=== PATIENT | female | born 1945 | race African-American/Black ===

== ENCOUNTER 2017-11-16 23:30 | Inpatient (IN) | payer MEDICARE, MEDICAID ==
[2017-11-17 03:12] VITALS: BMI 35.9
[2017-11-17] MEDS ORDERED: Ondansetron ODT 4 MG TAB SL PRN ×2 (03:23→07:34)
[2017-11-17] MEDS ORDERED: Acetaminophen 325 MG TAB PO PRN (03:23)
[2017-11-17] MEDS ORDERED: Ondansetron HCl/PF 4 MG/2 ML Vial IVP PRN (03:23)
[2017-11-17] MEDS ORDERED: Dextrose 5% in Water 1,000 ML IV PRN (07:34)
[2017-11-17] MEDS ORDERED: Artificial Tears 18 DROP/0.9 ML EA EYE PRN (07:34)
[2017-11-17] MEDS ORDERED: hydrALAZINE 20 MG/ML VIAL SLOW IVP PRN (07:34)
[2017-11-17] MEDS ORDERED: Eucerin (Mineral Oil/Petrolatum,White) 30 gm Jar TOP PRN (07:34)
[2017-11-17] MEDS ORDERED: Dextrose 50% Abboject 50 ML SYRINGE SLOW IVP PRN (07:34)
[2017-11-17] MEDS ORDERED: Diabetic Tussin 200 MG/10 ML UDCUP PO PRN (07:34)
[2017-11-17] MEDS ORDERED: Chloraseptic Spray 180 ml Bottle PO PRN (07:34)
[2017-11-17] MEDS ORDERED: Milk Of Magnesia 30 ML UDCUP PO PRN (07:34)
[2017-11-17] MEDS ORDERED: HumaLOG 300 UNITS/3 ML VIAL SC PRN ×2 (07:34)
[2017-11-17] MEDS ORDERED: Sodium Chloride 0.65% Nasal 44 ML BOT EA NARE PRN (07:34)
[2017-11-17] MEDS ORDERED: Sodium Chloride 0.9% 1,000 ML IV SCH (07:45)
[2017-11-17 07:56] LABS: Hemoglobin 11.5 g/dL (12.0-16.0); Mean Corpuscular HGB CONC 32.3 g/dL (32.0-36.0); Mean Corpuscular Hemoglobin 32.4 pg (27.0-31.0); Platelet Count 311 thou/uL (130-400); RBC Distribution Width 12.5 % (11.5-14.5); Red Blood Cell (RBC) Count 3.56 mill/uL (4.20-5.40); White Blood Cell (WBC) Count 10.7 thou/uL (4.8-10.8)
[2017-11-17] MEDS: Ondansetron HCl/PF 4 MG/2 ML Vial IVP PRN (08:03)
[2017-11-17 08:09] LABS: Lactic Acid 1.1 mmol/L (0.5-2.2)
[2017-11-17 08:19] LABS: ALT (SGPT) 9 U/L (8-55); AST (SGOT) 19 U/L (5-34); Albumin 3.7 g/dL (3.4-4.8); Alkaline Phosphatase 64 U/L (40-150); Anion Gap 15 mmol/L (10-20); BUN (Urea Nitrogen) 56 mg/dL (9.8-20.1); Bilirubin, Total 0.6 mg/dL (0.2-1.2); Calc. Creatinine Clearance 42 mL/min (70-130); Calcium 9.5 mg/dL (7.8-10.44); Carbon Dioxide 18 mmol/L (23-31); Chloride 105 mmol/L (98-107); Estimated GFR-MDRD 30; Globulin 4.4 g/dL (2.4-3.5); Glucose 146 mg/dL (83-110); Potassium 5.8 mmol/L (3.5-5.1); Protein, Total 8.1 g/dL (6.0-8.3); Sodium 132 mmol/L (136-145)
[2017-11-17 08:24] LABS: Band 56 % (5-11); Lymphocytes 10 % (21-51); MDiff Complete? YES; Metamyelocyte 5 % (0-0); Monocytes 2 % (0-10); Neutrophil 27 % (42-75); Reflex for Review?? YES; Vacuoles SLIGHT
[2017-11-17] MEDS: Amlodipine 5 MG TAB PO SCH (08:42)
[2017-11-17] MEDS: Carvedilol 6.25 MG TAB PO SCH ×2 (08:42→22:49)
[2017-11-17] MEDS: Famotidine/PF 20 mg/2ml Vial SLOW IVP SCH (08:42)
[2017-11-17] MEDS ORDERED: Enoxaparin Sodium 30 MG/0.3 ML SYRINGE SC SCH (09:00)
[2017-11-17] MEDS ORDERED: Benzocaine 20% Spray 60 ML CAN PO SCH (11:15)
[2017-11-17] MEDS ORDERED: Lidocaine 2% Jelly 5 ML TUBE TOP SCH (11:15)
--- NOTE | 2017-11-17 12:01 | HP ---
DATE OF ADMISSION: 11/17/2017 PRIMARY CARE PHYSICIAN: Dr. Pascual Mosquera. REASON FOR ADMISSION: Small-bowel obstruction. HISTORY OF PRESENT ILLNESS: A 72-year-old female who has ileostomy in the right lower quadrant, who presented to [facility] with abdominal pain. The patient did not have any solid output for almost 24 hours before going to emergency room. She was also having associated nausea and vomiting. Her abdominal pain was diffuse, about 4/10 in intensity. She also had bilious vomiting without any blood. She did not have any fever or chills. She denied any urinary tract infection symptoms, but she reported feeling weak. She did not have any chest pain, palpitation or shortness of breath. With these symptoms, she presented to [facility] where she had CT of the abdomen and pelvis with contrast, which showed stranding changes around the ileostomy in the right lower quadrant and fecalization of small bowel and suspected for small-bowel obstruction. The patient was sent to our emergency room for evaluation and subsequently she was admitted to surgical floor. At [facility], the patient was given IV fluid. Over there, the patient was hemodynamically stable other than having low-grade fever. REVIEW OF SYSTEMS: The following complete review of systems was negative, unless otherwise mentioned in the HPI or below: Constitutional: Weight loss or gain, ability to conduct usual activities. Skin: Rash, itching. Eyes: Double vision, pain. ENT/Mouth: Nose bleeding, neck stiffness, pain, tenderness. Cardiovascular: Palpitations, dyspnea on exertion, orthopnea. Respiratory: Shortness of breath, wheezing, cough, hemoptysis, fever or night sweats. Gastrointestinal: Poor appetite, abdominal pain, heartburn, nausea, vomiting, constipation, or diarrhea. Genitourinary: Urgency, frequency, dysuria, nocturia. Musculoskeletal: Pain, swelling. Neurologic/Psychiatric: Anxiety, depression. Allergy/Immunologic: Skin rash, bleeding tendency. Please see my HPI for pertinent positive and negative. All other review of systems reviewed and negative except as mentioned in the HPI. EMERGENCY ROOM COURSE: The patient was given IV fluid at [facility]. PAST MEDICAL HISTORY: Chronic diastolic heart failure, diabetes type 2, hypertension, dyslipidemia, morbid obesity, asthma, history of ileostomy in the right lower quadrant. PAST SURGICAL HISTORY: Ileostomy in the right lower quadrant. PAST PSYCHIATRIC HISTORY: Reviewed and negative. SOCIAL HISTORY: The patient lives with family. No history of current tobacco, alcohol or illicit drug abuse. She is a former smoker. She quit smoking more than 10 years ago. She lives with 2 sisters, niece and nephew. FAMILY HISTORY: No strong family history of premature CAD, CVA or cancer. ALLERGIES: No known drug allergy. CURRENT HOME MEDICATIONS: Valsartan 160 mg p.o. daily, pravastatin 80 mg p.o. at bedtime, Coreg 12.5 mg twice daily, Lasix 40 mg p.o. daily, Ventolin inhaled nebulization q.4 hourly p.r.n., amlodipine 5 mg daily, DuoNeb q.6 hourly p.r.n. , Symbicort 2 puff inhalation b.i.d. PHYSICAL EXAMINATION: VITAL SIGNS: On arrival to our emergency room, blood pressure 127/62, pulse 101 , respiratory rate 22, temperature 99.3, saturation 99% on room air, weight 104.3 kilograms. GENERAL: The patient is currently alert, awake, appears weak. No obvious acute distress, chronically ill. HEAD: Normocephalic, atraumatic. EYES: Pupils round and reactive to light. Extraocular muscle intact. ENT: Oropharynx within normal limits. Dry mucous membrane. No oral lesion, no pharyngeal erythema, no exudate. NECK: Supple. No JVD, no thyromegaly, no carotid bruit. LUNGS: Clear to auscultation without any rhonchi or rales. CARDIAC: S1, S2 regular, tachycardia. No murmur, no gallop, no rub. ABDOMEN: The patient has diffuse tenderness, predominantly tenderness more around osteotomy site. Currently, osteotomy is filled with liquidy stool. Bowel sounds hypoactive. No peritoneal signs. No organomegaly, no mass. Obesity noted. BACK: Unremarkable. No CVA tenderness. EXTREMITIES: Upper extremities, passive movement of all joints are normal. Lower extremities, no edema. Good distal pulsation. MUSCULOSKELETAL: The patient has Horta catheter in place. NEUROLOGIC: Nonfocal examination. The patient is moving all four limbs. Speech normal. SKIN: No skin rash. PSYCHIATRIC: Normal affect. SIGNIFICANT LABORATORY DATA: CBC, WBC 13.7, hemoglobin 12.1, platelets 311,000 with bandemia. BMP, sodium 135, potassium 5.8, BUN 56, creatinine 2.0, glucose 146, calcium 9.5. Lactic acid 1.1. LFT, AST 19, ALT 9, alkaline phosphatase 64 , albumin 3.7, lipase 19. Urinalysis unremarkable. Gastric occult blood negative. CT of the abdomen and pelvis showing stranding changes and fecalization of small bowel in the right lower quadrant. ASSESSMENT AND PLAN: 1. Suspected small-bowel obstruction based on CT finding. At this point, the patient's osteotomy is with liquidy stool. Does not obviously suspect a major obstruction. We will consult General Surgery for their opinion. At this point , we will keep her n.p.o. except medication. 2. Osteotomy site infection. The patient does have stranding around the osteotomy site and fecalization of small bowel. Small bowel infection is suspected. Enteritis possible, that may be causing partial small-bowel obstruction. We will send stool for Clostridium difficile, ova and parasite, Campylobacter antigen and start empiric antibiotic therapy with Levaquin and Flagyl. Probiotics will be prescribed. 3. Sepsis with systemic inflammatory response syndrome criteria. The patient has fever, tachycardia, leukocytosis and bandemia. Most likely source is abdominal infection. We will send stool for infection workup. The patient is already started on empiric antibiotic therapy. Probiotic is also prescribed. 4. Microcytic anemia. The patient will be given folic acid and vitamin B12 therapy. 5. Acute on chronic kidney failure, likely due to high output from ileostomy. The patient will be given IV fluid and we will monitor renal function. 6. Hyponatremia and hyperkalemia, likely due to metabolic acidosis and acute kidney failure. We will monitor electrolytes and replace accordingly. 7. Obesity with BMI of 35. Dietary education given. 8. Hypertension. Continue amlodipine 5 mg p.o. daily, Coreg 12.5 mg twice daily. 9. Dyslipidemia. Continue pravastatin 80 mg p.o. at bedtime. 10. Diabetes type 2. Continue insulin as per sliding scale per protocol. 11. Chronic obstructive pulmonary disease/asthma. Continue DuoNeb q.6 hourly. Incentive spirometry advised. 12. Deep venous thrombosis prophylaxis, heparin 5000 units subcu twice daily. 13. Gastrointestinal prophylaxis, Pepcid 20 mg IV daily. 14. Code status: The patient is full code. The patient does not have any surrogate decision maker. Disposition plan based on clinical course. We are expecting the patient's stay in hospital more than 2 midnights. Plan of care discussed with the patient in detail. MTDD
[2017-11-17] MEDS ORDERED: metroNIDAZOLE 500 MG in Premix Bag 1 BAG IVPB SCH (14:00)
--- NOTE | 2017-11-17 15:31 | RAD ---
ABDOMEN ONE VIEW: History: Abdominal pain. Bowel obstruction. Comparison: 11-16-17 FINDINGS: Gaseous distention of the small bowel in the upper abdomen is similar in appearance to the previous e xam. There is paucity of gas over the colon and rectum. Contrast material remains within the urinary collecting system. Hemostatis clips are apparent on each side of the abdomen. Calcified uterine fibro ids and phleboliths are again demonstrated. Osseous structures are demineralized. Prominent degenerat judith changes lumbar spine and hips. IMPRESSION: Persistent gaseous distension of the small bowel. Stable in radiographic appearance. POS: [facility]
[2017-11-17] MEDS: Heparin 5,000 UNITS/ML VIAL SC SCH ×2 (17:58→22:48)
[2017-11-17] MEDS: Sodium Chloride 0.9% 1,000 ML IV SCH ×2 (17:59→22:48)
[2017-11-17] MEDS: metroNIDAZOLE 500 MG in Premix Bag 1 BAG IVPB SCH (18:04)
--- NOTE | 2017-11-17 18:27 | CON ---
DATE OF CONSULTATION: 11/17/2017 CHIEF COMPLAINT: Nausea and vomiting. HISTORY OF PRESENT ILLNESS: The patient is a 72-year-old morbidly obese black female, well known to myself from prior surgery and followup evaluations. I performed a colon resection on three separate occasions in 1997, 1999, 2000. Each of these was performed in treatment of colon bleeding and this r esulted in a subtotal colectomy with an end ileostomy in the right lower quadrant. She was morbidly obese at the time of her surgeries and she remains morbidly obese at this time. Her last surgery was now over 17 years ago. She has been admitted to hospital several times in 2013, 2015, 2017 and now with evidence of bowel obstruction. The obstruction appeared to be related to parastomal hernia. She presented to the emergency room last night apparently complained of nausea and vomiting. She has become progressively poor historian. She is unable to tell me what her ostomy function has been rec ently. She does note that started putting out a significant volume of fluid within the last hour or so. She has not vomited for 3 hours at this time. Personal examination of her CT scan revealed several loops of small bowel present within her parastom al hernia in the right abdominal wall. She has fecalization of small bowel contents and this appears to be within the segment of small bowel immediately adjacent to the stoma. This may indicate stomal stenosis as the etiology of her problem. PAST MEDICAL HISTORY: 1. Oxygen-dependent COPD. 2. Diabetes mellitus. 3. Severe morbid obesity. 4. Mild chronic kidney disease. 5. Hypertension. PAST SURGICAL HISTORY: Colon resection x3 with end ileostomy. MEDICATIONS: Include valsartan, pravastatin, Coreg, Lasix, and Ventolin, amlodipine, DuoNebs and Sym bicort. ALLERGIES: No known drug allergies. PRIMARY CARE PHYSICIAN: Eveline Garner DO PERSONAL/SOCIAL HISTORY: She is single. She lives with two sisters in [place]. She does not s moke or drink alcohol. REVIEW OF SYSTEMS: Otherwise, unremarkable. She is minimally ambulatory. FAMILY HISTORY: Noncontributory. PHYSICAL EXAMINATION: VITAL SIGNS: Her temperature is 98.1, pulse is between 73 and 101, blood pressure 153/78. GENERAL: She is morbidly obese black female, resting in bed. She was asleep when I arrived, but tiesha l quickly and interacts appropriately. She is alert and oriented x3. She does appear to be a little more confused than in times in the past I have seen her and answers more slowly. HEENT: Unremarkable. NECK: Supple. LUNGS: Clear to auscultation. CARDIAC: Regular rate and rhythm without murmur. ABDOMEN: Morbidly obese, but soft and nontender. Bowel sounds are present but hypoactive. Ostomy i n the right lower abdomen, has an ostomy appliance over this. This was taped down in such a fashion that I cannot lift off the ostomy bag to examine the ileostomy. EXTREMITIES: Unremarkable. LABORATORY DATA: CBC reveals white blood cell count of 10.7 with hemoglobin of 11.5. She has a band emia; however, of 56%. Chemistry profile reveals low sodium of 132, potassium is elevated at 5.8. C reatinine is elevated at 2.0 (up from her admission yesterday). Liver function tests are unremarkabl e. ASSESSMENT: Patient with what appears to be a small-bowel obstruction potentially related to an ileo stomy stenosis. This fecalization of the small bowel immediately adjacent is concerning. I have ask ed the nursing staff to change out her ostomy bags, so I examine the ileostomy for stenosis. If she does in fact have stenosis, then she would probably benefit from surgery to address this in light of her recurrent admissions. She certainly does not have a current worrisome exam. Given the recent ms eostomy output, I recommend observation rather than nasogastric tube placement. Other than ileostomy revision, I cannot imagine she would require another surgery at this time and if her stoma is workin g appropriately, then we may hold off on that as well. For now a nasogastric tube is not necessary. She is not vomiting and ostomy is working. If this does become necessary, then as she is request, I will try to place it myself.
[2017-11-17] MEDS: Mometasone/Formoterol 120 PUFF INHALER INH SCH (18:45)
[2017-11-17] MEDS: Acetaminophen 325 MG TAB PO PRN (22:49)
[2017-11-17] MEDS: Atorvastatin Calcium 20 MG TAB PO SCH (22:49)
[2017-11-18] MEDS: metroNIDAZOLE 500 MG in Premix Bag 1 BAG IVPB SCH ×2 (00:36→10:00)
[2017-11-18] MEDS: Mometasone/Formoterol 120 PUFF INHALER INH SCH ×2 (06:29→19:46)
[2017-11-18] MEDS: Sodium Chloride 0.9% 1,000 ML IV SCH ×2 (06:44→10:00)
[2017-11-18 09:03] LABS: ALT (SGPT) Less than 7 U/L (8-55); AST (SGOT) 9 U/L (5-34); Albumin 3.5 g/dL (3.4-4.8); Alkaline Phosphatase 62 U/L (40-150); Anion Gap 14 mmol/L (10-20); BUN (Urea Nitrogen) 62 mg/dL (9.8-20.1); Bilirubin, Total 0.4 mg/dL (0.2-1.2); Calc. Creatinine Clearance 44 mL/min (70-130); Calcium 8.6 mg/dL (7.8-10.44); Carbon Dioxide 19 mmol/L (23-31); Chloride 111 mmol/L (98-107); Estimated GFR-MDRD 32; Globulin 4.1 g/dL (2.4-3.5); Glucose 121 mg/dL (83-110); Magnesium 2.2 mg/dL (1.6-2.6); Phosphorus 3.9 mg/dL (2.3-4.7); Potassium 4.8 mmol/L (3.5-5.1); Protein, Total 7.6 g/dL (6.0-8.3); Sodium 139 mmol/L (136-145)
[2017-11-18] MEDS ORDERED: Enoxaparin Sodium 30 MG/0.3 ML SYRINGE SC SCH (09:07)
[2017-11-18 09:23] LABS: Band 55 % (5-11); Hemoglobin 11.6 g/dL (12.0-16.0); Lymphocytes 14 % (21-51); MDiff Complete? YES; Macrocytosis SLIGHT = 6-15 cells (100X) (0-5/hpf); Mean Corpuscular HGB CONC 31.1 g/dL (32.0-36.0); Mean Corpuscular Hemoglobin 31.3 pg (27.0-31.0); Mean Platelet Volume 6.8 fL (7.4-10.4); Metamyelocyte 6 % (0-0); Monocytes 6 % (0-10); Neutrophil 18 % (42-75); PLT Morphology Comment Appears Adequate; Platelet Count 276 thou/uL (130-400); Polychromasia SLIGHT = 2-3 cells (100X) (0-2/hpf); RBC Distribution Width 12.4 % (11.5-14.5); Reactive Lymphocytes 1 % (0-10); Red Blood Cell (RBC) Count 3.71 mill/uL (4.20-5.40); Toxic Granulation SLIGHT; White Blood Cell (WBC) Count 8.9 thou/uL (4.8-10.8)
[2017-11-18] MEDS: Cyanocobalamin (Vitamin B-12) 1,000 MCG TAB PO SCH (09:56)
[2017-11-18] MEDS: Carvedilol 6.25 MG TAB PO SCH ×2 (09:56→22:11)
[2017-11-18] MEDS: Saccharomyces boulardii 250 MG CAP PO SCH (09:58)
[2017-11-18] MEDS: Amlodipine 5 MG TAB PO SCH (09:58)
[2017-11-18] MEDS: Folic Acid 1 MG TAB PO SCH (09:58)
[2017-11-18] MEDS: Heparin 5,000 UNITS/ML VIAL SC SCH ×2 (09:59→22:11)
[2017-11-18] MEDS: Famotidine/PF 20 mg/2ml Vial SLOW IVP SCH (09:59)
--- NOTE | 2017-11-18 10:12 | PDOC.PN ---
- Subjective Encounter Start Date: 11/18/17 Encounter Start Time: 08:20 -: old records requested/rev pt is still not feeling good, no fever, has vague abdominal discomfort, no vomiting, - Objective Resuscitation Status: Resuscitation Status FULL:Full Resuscitation MAR Reviewed: Yes Vital Signs & Weight: Vital Signs (12 hours) Temp Pulse Resp BP BP Pulse Ox 11/18/17 07:52 97.7 F 85 18 156/76 H 99 11/18/17 06:29 92 18 96 11/18/17 06:26 92 18 96 11/18/17 05:19 98.3 F 84 14 126/67 100 11/18/17 01:47 84 18 96 11/17/17 22:50 97 11/17/17 22:49 164/83 H Weight Weight 229 lb I&O: 11/17/17 11/18/17 11/19/17 06:59 06:59 06:59 Intake Total 10 120 Output Total 250 600 Balance -240 -480 Result Diagrams: 11/18/17 08:28 11/18/17 08:28 Additional Labs: Accuchecks 11/18/17 11/17/17 11/17/17 05:18 23:04 15:45 POC Glucose 130 H 132 H 139 H 11/17/17 11:14 POC Glucose 148 H Phys Exam - Physical Examination Constitutional: NAD HEENT: PERRLA, moist MMs, sclera anicteric Neck: no JVD, supple Respiratory: no wheezing, no rales, no rhonchi Cardiovascular: RRR, no significant murmur, no rub Gastrointestinal: soft, positive bowel sounds RLQ ileostomy+, vague discomfort, hypoactive BS maxwell+ Musculoskeletal: no edema, pulses present Neurological: non-focal, normal sensation, moves all 4 limbs Lymphatic: no nodes Psychiatric: normal affect Skin: no rash, normal turgor Dx/Plan (1) Abnormal blood electrolyte level Code(s): E87.8 - OTH DISORDERS OF ELECTROLYTE AND FLUID BALANCE, NEC Status: Acute (2) Acute renal failure superimposed on stage 3 chronic kidney disease Code(s): N17.9 - ACUTE KIDNEY FAILURE, UNSPECIFIED; N18.3 - CHRONIC KIDNEY DISEASE, STAGE 3 (MODERATE) Status: Acute (3) Dehydration Code(s): E86.0 - DEHYDRATION Status: Acute (4) Sepsis Code(s): A41.9 - SEPSIS, UNSPECIFIED ORGANISM Status: Acute (5) COPD (chronic obstructive pulmonary disease) Status: Chronic (6) DM type 2 (diabetes mellitus, type 2) Status: Chronic (7) H/O ileostomy Code(s): Z98.89 - OTHER SPECIFIED POSTPROCEDURAL STATES * DO NOT USE * Status : Chronic (8) HTN (hypertension) Code(s): I10 - ESSENTIAL (PRIMARY) HYPERTENSION Status: Chronic (9) Macrocytic anemia Code(s): D53.9 - NUTRITIONAL ANEMIA, UNSPECIFIED Status: Chronic (10) Obesity (BMI 30-39.9) Code(s): E66.9 - OBESITY, UNSPECIFIED Status: Chronic (11) Parastomal hernia Code(s): K43.5 - PARASTOMAL HERNIA WITHOUT OBSTRUCTION OR GANGRENE Status: Chronic (12) SBO (small bowel obstruction) Code(s): K56.609 - UNSP INTESTNL OBST, UNSP TO PARTIAL VERSUS COMPLETE OBST Status: Suspected - Plan cont current plan of care, continue antibiotics * still has bandemia, will dc levaquin and continue IV flagyl for c-diff antigen positive but toxin negative * surgeon following and suspecting ileostomy stenosis * medication reviewed as below * symptomatic treatment * continue IVF * renal function improving and electrolytes improved. Review of Systems - Review of Systems Constitutional: weakness. negative: fever, chills, sweats, malaise, other ENT: negative: Ear Pain, Ear Discharge, Nose Pain, Nose Discharge, Nose Congestion, Mouth Pain, Mouth Swelling, Throat Pain, Throat Swelling, Other Respiratory: negative: Cough, Dry, Shortness of Breath, Hemoptysis, SOB with Excertion, Pleuritic Pain, Sputum, Wheezing Cardiovascular: negative: chest pain, palpitations, orthopnea, paroxysmal nocturnal dyspnea, edema, light headedness, other Gastrointestinal: Nausea, Abdominal Pain. negative: Vomiting, Diarrhea, Constipation, Melena, Hematochezia, Other Genitourinary: negative: Dysuria, Frequency, Incontinence, Hematuria, Retention , Other Musculoskeletal: negative: Neck Pain, Shoulder Pain, Arm Pain, Back Pain, Hand Pain, Leg Pain, Foot Pain, Other - Medications/Allergies Allergies/Adverse Reactions: Allergies Allergy/AdvReac Type Severity Reaction Status Date / Time No Known Allergies Allergy Verified 03/18/15 17:23 Medications: Current Medications Acetaminophen (Tylenol) 650 mg PO Q4H PRN PRN Reason: Headache/Fever or Pain Last Admin: 11/17/17 22:49 Dose: 650 mg Albuterol/Ipratropium (Duoneb) 3 ml NEB [id number] [facility] Last Admin: 11/18/17 06:26 Dose: 3 ml Amlodipine Besylate (Norvasc) 5 mg PO DAILY [facility] Last Admin: 11/17/17 08:42 Dose: Not Given Artificial Tears (Tears Naturale) 0 drop EA EYE PRN PRN PRN Reason: Dry Eyes Atorvastatin Calcium (Lipitor) 20 mg PO HS [facility] Last Admin: 11/17/17 22:49 Dose: 20 mg Carvedilol (Coreg) 12.5 mg PO BID [facility] Last Admin: 11/17/17 22:49 Dose: 12.5 mg Cyanocobalamin (Vitamin B-12) 1,000 mcg PO DAILY [facility] Dextrose/Water (Dextrose 50%) 25 gm SLOW IVP PRN PRN PRN Reason: Hypoglycemia Famotidine (Pepcid) 20 mg SLOW IVP DAILY [facility] Last Admin: 11/17/17 08:42 Dose: 20 mg Folic Acid (Folvite) 1 mg PO DAILY [facility] Glucagon (Glucagon) 1 mg IM PRN PRN PRN Reason: Hypoglycemia Guaifenesin (Robitussin Sf) 200 mg PO Q4H PRN PRN Reason: Cough Heparin Sodium (Porcine) (Heparin) 5,000 units SC BID [facility] Last Admin: 11/17/17 22:48 Dose: 5,000 units Hydralazine HCl (Apresoline) 10 mg SLOW IVP Q4H PRN PRN Reason: Systolic BP > 180 Dextrose/Water (D5w) 1,000 mls @ 0 mls/hr IV .Q0M PRN PRN Reason: Hypoglycemia Levofloxacin 500 mg/ Device 100 mls @ 100 mls/hr IVPB 1200 [facility] Last Admin: 11/17/17 12:44 Dose: 100 mls Sodium Chloride (Normal Saline 0.9%) 1,000 mls @ 150 mls/hr IV .Q6H40M [facility] Last Admin: 11/18/17 06:44 Dose: 1,000 mls Metronidazole 500 mg/ Device 100 mls @ 100 mls/hr IVPB 0200,1000,1800 [facility] Last Admin: 11/18/17 00:36 Dose: 100 mls Insulin Human Lispro (Humalog) 0 units SC .MODERATE SLIDING SC PRN PRN Reason: Moderate Correctional Scale Insulin Human Lispro (Humalog) 0 units SC .BEDTIME SLIDING SC PRN PRN Reason: Bedtime Correctional Scale Magnesium Hydroxide (Milk Of Magnesium) 30 ml PO DAILYPRN PRN PRN Reason: Constipation Mineral Oil/White Petrolatum (Eucerin Cream) 0 gm TOP BIDPRN PRN PRN Reason: Dry Skin Mometasone Furoate/Formoterol Fumar (Dulera 200 Mcg/5 Mcg Inhaler) 2 puff INH BID-RT [facility] Last Admin: 11/18/17 06:29 Dose: 2 puff Morphine Sulfate (Morphine) 2 mg SLOW IVP Q2H PRN PRN Reason: Pain Ondansetron HCl (Zofran Odt) 4 mg SL Q6H PRN PRN Reason: Nausea/Vomiting Ondansetron HCl (Zofran) 4 mg IVP Q6H PRN PRN Reason: Nausea/Vomiting Last Admin: 11/17/17 08:03 Dose: 4 mg Phenol (Chloraseptic Clinton 180 Ml Bot) 0 ml PO PRN PRN PRN Reason: Sore Throat Saccharomyces Boulardii (Florastor) 250 mg PO DAILY [facility] Sodium Chloride (Vincent Nasal Clinton 0.65%) 0 ml EA NARE QIDPRN PRN PRN Reason: Nasal Congestion Sodium Chloride (Flush - Normal Saline) 10 ml IVF Q12HR [facility] Last Admin: 11/17/17 22:50 Dose: 10 ml Sodium Chloride (Flush - Normal Saline) 10 ml IVF PRN PRN PRN Reason: Saline Flush
--- NOTE | 2017-11-18 14:04 | PRG ---
DATE OF SERVICE: 11/18/2017 SUBJECTIVE: Ms. Du was admitted yesterday. She had a suspected small-bowel obstruction involv ing the entirety of her small bowel (she has an ileostomy). She appeared to potentially have ileosto my stenosis. Her ostomy began working yesterday. I never placed a nasogastric tube. We started jory ar liquids this morning when she still had not had any further nausea or vomiting. Her ostomy has co ntinued to put out material uneventfully. She has no complaints currently. PHYSICAL EXAMINATION: VITAL SIGNS: Today, she is afebrile, pulse is in the 80s, blood pressure 150/70. LUNGS: Clear. ABDOMEN: Obese, but soft and nontender with normal bowel sounds. She has got good ostomy output. I digitally explored her ileostomy and there is no significant stenosis at the level of the skin. I a m able to pass my index finger easily down into the small bowel. She does have a significant parasto mal hernia, but this does not appear to be problematic. LABORATORY STUDIES: Her hemoglobin is stable at 11.6. For reasons that are unclear, she still appar ently has a bandemia of 55% even though she has got a normal white blood cell count. Chemistry profi willie reveals that her creatinine is improved and has dropped down from 2-1.89. She appears to be stable. I will advance her up to full liquids later today and plan on discharging her tomorrow. Since she still appears to be a little hypovolemic, I would recommend continuing her I V fluids for now.
[2017-11-18] MEDS: Lactated Ringer's 1,000 ML IV SCH (14:48)
[2017-11-18] MEDS: Acetaminophen 325 MG TAB PO PRN (22:11)
[2017-11-18] MEDS: Atorvastatin Calcium 20 MG TAB PO SCH (22:11)
[2017-11-19] MEDS: Lactated Ringer's 1,000 ML IV SCH ×4 (00:05→22:15)
[2017-11-19] MEDS: Ondansetron HCl/PF 4 MG/2 ML Vial IVP PRN (03:16)
[2017-11-19] MEDS: Mometasone/Formoterol 120 PUFF INHALER INH SCH ×2 (06:25→19:17)
[2017-11-19 06:59] LABS: White Blood Cell (WBC) Count 10.7 thou/uL (4.8-10.8)
[2017-11-19 07:49] LABS: Albumin 3.3 g/dL (3.4-4.8); Anion Gap 11 mmol/L (10-20); BUN (Urea Nitrogen) 44 mg/dL (9.8-20.1); BUN/Creatinine Ratio 30.14; Calc. Creatinine Clearance 57 mL/min (70-130); Calcium 8.8 mg/dL (7.8-10.44); Carbon Dioxide 19 mmol/L (23-31); Chloride 112 mmol/L (98-107); Estimated GFR-MDRD 43; Glucose 109 mg/dL (83-110); Phosphorus 2.5 mg/dL (2.3-4.7); Potassium 4.4 mmol/L (3.5-5.1); Sodium 138 mmol/L (136-145)
--- NOTE | 2017-11-19 08:08 | RAD ---
ABDOMEN 1 VIEW: HISTORY: Abdominal pain. Vomiting. COMPARISON: 11/17/17. FINDINGS: Gaseous distention of small bowel has become more pronounced than on the previous study. Postoperati ve changes and phleboliths are again demonstrated. Osseous structures are demineralized. IMPRESSION: 1. Progressing gaseous distention of the small bowel suggests worsening distal bowel obstruction. POS: [facility]
[2017-11-19 08:37] LABS: Hemoglobin 10.5 g/dL (12.0-16.0); Mean Corpuscular HGB CONC 32.6 g/dL (32.0-36.0); Mean Corpuscular Hemoglobin 32.9 pg (27.0-31.0); Mean Platelet Volume 6.8 fL (7.4-10.4); Platelet Count 328 thou/uL (130-400); RBC Distribution Width 12.3 % (11.5-14.5); Red Blood Cell (RBC) Count 3.18 mill/uL (4.20-5.40)
[2017-11-19 08:42] LABS: Band 37 % (5-11); Eosinophils 1 % (0-10); Lymphocytes 13 % (21-51); MDiff Complete? YES; Monocytes 8 % (0-10); Neutrophil 41 % (42-75); Nucleated RBC 1 % (0); PLT Morphology Comment Appears Adequate; Polychromasia SLIGHT = 2-3 cells (100X) (0-2/hpf)
--- NOTE | 2017-11-19 09:26 | PDOC.PN ---
- Subjective Encounter Start Date: 11/19/17 Encounter Start Time: 08:30 pt has nausea and episode of vomiting, has abdominal discomfort, has bandemia, very weak - Objective Resuscitation Status: Resuscitation Status FULL:Full Resuscitation MAR Reviewed: Yes Vital Signs & Weight: Vital Signs (12 hours) Temp Pulse Resp BP BP Pulse Ox 11/19/17 07:30 98.3 F 91 18 161/67 H 95 11/19/17 06:25 85 20 99 11/19/17 06:20 85 20 99 11/19/17 04:04 98.1 F 75 20 164/91 H 97 11/19/17 00:27 97.9 F 75 16 148/77 H 99 11/18/17 23:49 82 16 100 11/18/17 22:11 156/76 H Weight Weight 229 lb I&O: 11/18/17 11/19/17 11/20/17 06:59 06:59 06:59 Intake Total 120 3060 Output Total 600 700 Balance -480 2360 Result Diagrams: 11/19/17 06:49 11/19/17 06:49 Additional Labs: Accuchecks 11/19/17 11/18/17 11/18/17 05:49 20:53 15:56 POC Glucose 105 98 117 H 11/18/17 11:25 POC Glucose 118 H Phys Exam - Physical Examination Constitutional: NAD HEENT: PERRLA, moist MMs, sclera anicteric Neck: no JVD, supple Respiratory: no wheezing, no rales, no rhonchi Cardiovascular: RRR, no significant murmur, no rub Gastrointestinal: soft, positive bowel sounds upper abdominal discomfort, ileostomy with liquid stool Musculoskeletal: no edema, pulses present Neurological: moves all 4 limbs Lymphatic: no nodes Psychiatric: normal affect Skin: no rash, normal turgor Dx/Plan (1) Abnormal blood electrolyte level Code(s): E87.8 - OTH DISORDERS OF ELECTROLYTE AND FLUID BALANCE, NEC Status: Acute (2) Acute renal failure superimposed on stage 3 chronic kidney disease Code(s): N17.9 - ACUTE KIDNEY FAILURE, UNSPECIFIED; N18.3 - CHRONIC KIDNEY DISEASE, STAGE 3 (MODERATE) Status: Acute (3) Dehydration Code(s): E86.0 - DEHYDRATION Status: Acute (4) Sepsis Code(s): A41.9 - SEPSIS, UNSPECIFIED ORGANISM Status: Acute (5) COPD (chronic obstructive pulmonary disease) Status: Chronic (6) DM type 2 (diabetes mellitus, type 2) Status: Chronic (7) H/O ileostomy Code(s): Z98.89 - OTHER SPECIFIED POSTPROCEDURAL STATES * DO NOT USE * Status : Chronic (8) HTN (hypertension) Code(s): I10 - ESSENTIAL (PRIMARY) HYPERTENSION Status: Chronic (9) Macrocytic anemia Code(s): D53.9 - NUTRITIONAL ANEMIA, UNSPECIFIED Status: Chronic (10) Obesity (BMI 30-39.9) Code(s): E66.9 - OBESITY, UNSPECIFIED Status: Chronic (11) Parastomal hernia Code(s): K43.5 - PARASTOMAL HERNIA WITHOUT OBSTRUCTION OR GANGRENE Status: Chronic (12) SBO (small bowel obstruction) Code(s): K56.609 - UNSP INTESTNL OBST, UNSP TO PARTIAL VERSUS COMPLETE OBST Status: Suspected (13) Bandemia Code(s): D72.825 - BANDEMIA Status: Acute - Plan cont current plan of care * repeat c-diff testing * add flagyl for bandemia * consult ID for bandemia * will keep in hospital until renal function improve and bandemia improve * she is high risk for readmission * medication reviewed as below * symptomatic treatment. Review of Systems - Review of Systems Constitutional: weakness. negative: fever, chills, sweats, malaise, other Eyes: negative: Pain, Vision Change, Conjunctivae Inflammation, Eyelid Inflammation, Redness, Other ENT: negative: Ear Pain, Ear Discharge, Nose Pain, Nose Discharge, Nose Congestion, Mouth Pain, Mouth Swelling, Throat Pain, Throat Swelling, Other Respiratory: negative: Cough, Dry, Shortness of Breath, Hemoptysis, SOB with Excertion, Pleuritic Pain, Sputum, Wheezing Cardiovascular: negative: chest pain, palpitations, orthopnea, paroxysmal nocturnal dyspnea, edema, light headedness, other Gastrointestinal: Abdominal Pain. negative: Nausea, Vomiting, Diarrhea, Constipation, Melena, Hematochezia, Other Genitourinary: negative: Dysuria, Frequency, Incontinence, Hematuria, Retention , Other Musculoskeletal: negative: Neck Pain, Shoulder Pain, Arm Pain, Back Pain, Hand Pain, Leg Pain, Foot Pain, Other - Medications/Allergies Allergies/Adverse Reactions: Allergies Allergy/AdvReac Type Severity Reaction Status Date / Time No Known Allergies Allergy Verified 03/18/15 17:23 Medications: Current Medications Acetaminophen (Tylenol) 650 mg PO Q4H PRN PRN Reason: Headache/Fever or Pain Last Admin: 11/18/17 22:11 Dose: 650 mg Albuterol/Ipratropium (Duoneb) 3 ml NEB [id number] [facility] Last Admin: 11/19/17 06:20 Dose: 3 ml Amlodipine Besylate (Norvasc) 5 mg PO DAILY [facility] Last Admin: 11/18/17 09:58 Dose: 5 mg Artificial Tears (Tears Naturale) 0 drop EA EYE PRN PRN PRN Reason: Dry Eyes Atorvastatin Calcium (Lipitor) 20 mg PO HS [facility] Last Admin: 11/18/17 22:11 Dose: 20 mg Carvedilol (Coreg) 12.5 mg PO BID [facility] Last Admin: 11/18/17 22:11 Dose: 12.5 mg Cyanocobalamin (Vitamin B-12) 1,000 mcg PO DAILY [facility] Last Admin: 11/18/17 09:56 Dose: 1,000 mcg Dextrose/Water (Dextrose 50%) 25 gm SLOW IVP PRN PRN PRN Reason: Hypoglycemia Famotidine (Pepcid) 20 mg SLOW IVP DAILY [facility] Last Admin: 11/18/17 09:59 Dose: 20 mg Folic Acid (Folvite) 1 mg PO DAILY [facility] Last Admin: 11/18/17 09:58 Dose: 1 mg Glucagon (Glucagon) 1 mg IM PRN PRN PRN Reason: Hypoglycemia Guaifenesin (Robitussin Sf) 200 mg PO Q4H PRN PRN Reason: Cough Heparin Sodium (Porcine) (Heparin) 5,000 units SC BID [facility] Last Admin: 11/18/17 22:11 Dose: 5,000 units Hydralazine HCl (Apresoline) 10 mg SLOW IVP Q4H PRN PRN Reason: Systolic BP > 180 Dextrose/Water (D5w) 1,000 mls @ 0 mls/hr IV .Q0M PRN PRN Reason: Hypoglycemia Lactated Ringer's (Lactated Ringer's) 1,000 mls @ 125 mls/hr IV .Q8H [facility] Last Admin: 11/19/17 00:05 Dose: 1,000 mls Insulin Human Lispro (Humalog) 0 units SC .MODERATE SLIDING SC PRN PRN Reason: Moderate Correctional Scale Insulin Human Lispro (Humalog) 0 units SC .BEDTIME SLIDING SC PRN PRN Reason: Bedtime Correctional Scale Magnesium Hydroxide (Milk Of Magnesium) 30 ml PO DAILYPRN PRN PRN Reason: Constipation Mineral Oil/White Petrolatum (Eucerin Cream) 0 gm TOP BIDPRN PRN PRN Reason: Dry Skin Mometasone Furoate/Formoterol Fumar (Dulera 200 Mcg/5 Mcg Inhaler) 2 puff INH BID-RT [facility] Last Admin: 11/19/17 06:25 Dose: 2 puff Morphine Sulfate (Morphine) 2 mg SLOW IVP Q2H PRN PRN Reason: Pain Last Admin: 11/18/17 15:45 Dose: 2 mg Ondansetron HCl (Zofran Odt) 4 mg SL Q6H PRN PRN Reason: Nausea/Vomiting Ondansetron HCl (Zofran) 4 mg IVP Q6H PRN PRN Reason: Nausea/Vomiting Last Admin: 11/19/17 03:16 Dose: 4 mg Phenol (Chloraseptic [place] 180 Ml Bot) 0 ml PO PRN PRN PRN Reason: Sore Throat Saccharomyces Boulardii (Florastor) 250 mg PO DAILY [facility] Last Admin: 11/18/17 09:58 Dose: 250 mg Sodium Chloride ([place] Nasal [place] 0.65%) 0 ml EA NARE QIDPRN PRN PRN Reason: Nasal Congestion Sodium Chloride (Flush - Normal Saline) 10 ml IVF Q12HR [facility] Last Admin: 11/18/17 22:11 Dose: 10 ml Sodium Chloride (Flush - Normal Saline) 10 ml IVF PRN PRN PRN Reason: Saline Flush
[2017-11-19] MEDS: Carvedilol 6.25 MG TAB PO SCH ×2 (10:57→20:05)
[2017-11-19] MEDS: Amlodipine 5 MG TAB PO SCH (10:57)
[2017-11-19] MEDS: Cyanocobalamin (Vitamin B-12) 1,000 MCG TAB PO SCH (10:57)
[2017-11-19] MEDS: Folic Acid 1 MG TAB PO SCH (10:58)
[2017-11-19] MEDS: Saccharomyces boulardii 250 MG CAP PO SCH (10:58)
[2017-11-19] MEDS: Famotidine/PF 20 mg/2ml Vial SLOW IVP SCH (11:08)
[2017-11-19] MEDS: Heparin 5,000 UNITS/ML VIAL SC SCH ×2 (11:10→20:29)
[2017-11-19] MEDS: metroNIDAZOLE 500 MG in Premix Bag 1 BAG IVPB SCH ×2 (12:37→17:24)
--- NOTE | 2017-11-19 14:03 | PRG ---
DATE OF SERVICE: 11/19/2017 SUBJECTIVE: Ms. Du remains in the hospital. I had been hopeful that her ileostomy output from yesterday was indicative of resolution of her bowel obstruction issues. I was anticipating discharg e today. Unfortunately, she began vomiting overnight. X-ray from today documents increased volume o f gaseous distention of the small bowel. She is still having some ileostomy output. She denies any significant pain. PHYSICAL EXAMINATION: VITAL SIGNS: She is afebrile, pulse is 63-90, blood pressure is 160/70. LUNGS: Clear to auscultation. ABDOMEN: Soft, obese, nontender, bowel sounds are normoactive. She has an ostomy appliance in the r ight lower quadrant. There is an obvious parastomal hernia. LABORATORY STUDIES: Comprehensive metabolic panel shows a creatinine has dropped further from 1.89 y esterday to 1.46 today. Her albumin is somewhat low at 3.3. Her CBC shows a white blood cell count is stable at 10.7. Hemoglobin is 10.5. Platelet count is 328. She still has an abnormal differenti al and that she has 41% neutrophils and 37% bands. ASSESSMENT: She appears to have some degree of bowel obstruction issue for which I recommend nasogas tric tube placement for bowel decompression. I placed this nasogastric tube myself at bedside with l idocaine jelly and Hurricaine [place]. She can have ice chips while the NG tube is down. For reasons that are not completely clear, she was tested for Clostridium difficile at the time of pr esentation. She was not having high ileostomy output. There was some straining around the ileostomy in the parastomal hernia, but I believe this is because of the obstruction and the fecalization of small bowel in that location rather than because there was any small bowel infection. I do not be lieve she will benefit from any antibiotics at this time. For now, I would recommend continuing nasogastric tube for at least 24 hours. Since it is later in he day on Wednesday, then I would not recommend getting the small bowel follow through study until , which will be 11/21. If this shows that the contrast goes through without problems then hopes I w adamld be able to remove the tube and start her diet, would be able to discharge her shortly thereafter . If the contrast does not go through, then she will need revision of her ileostomy as she does have a couple of loops of small bowel up within the parastomal hernia. These do not appear to be obstruc tive but these do not appear to be obstructive currently, but if there is evidence of a problem, then it should be repaired. Otherwise, she is high enough operative risk, so I would rather avoid surger y on her if we can.
[2017-11-19] MEDS: Atorvastatin Calcium 20 MG TAB PO SCH (20:05)
--- NOTE | 2017-11-19 23:28 | CON ---
DATE OF CONSULTATION: 11/19/2017 REASON FOR CONSULTATION: Bandemia. HISTORY OF PRESENT ILLNESS: A 72-year-old patient who has a history of prior colectomy for managemen t of lower gastrointestinal bleeding, which led to an ileostomy placement. Since then, patient has h ad episodes of small-bowel obstruction usually once a year, typically presents with abdominal pain, n ausea, and vomiting. At this time, she developed this similar syndrome which led to her admission. She noticed an absence of output from the ileostomy for the 24 hours before admission associated with nausea, vomiting, and diffuse abdominal pain. No fever, chills. No headaches, no visual symptoms, sore throat, odynophagia, dysphagia. No bleeding, no genitourinary symptoms. Initial evaluation inc luded CT which showed stranding around the ileostomy right lower quadrant and fecalization of small b owel. Dr. Garcia evaluated the patient and continues to manage conservatively and we were asked to see her because of persistence of bandemia. Currently, Ms. Du is feeling better. She started to pass gas and some liquid output in the ileostomy. Denies any headaches, no shortness of breath, n o chest pain, no cough. Other 10-point review of systems as above. No joint symptoms. PAST MEDICAL HISTORY: CHF, type 2 diabetes, hypertension, recurrent lower GI bleeds which eventually culminated in colectomy with ileostomy placement, COPD, asthma, morbid obesity. PAST SURGICAL HISTORY: As above. SOCIAL HISTORY: Lives in the area. Former smoker. ALLERGIES: None. FAMILY HISTORY: Noncontributory. CURRENT MEDICATIONS: Include Tylenol, DuoNeb, Norvasc, Coreg, Lipitor, vitamin B12, Pepcid, glucagon , Robitussin, Apresoline, insulin, metronidazole, omeprazole, and Saccharomyces. PHYSICAL EXAMINATION: VITAL SIGNS: Temperature max 98.5, blood pressure 160/70, pulse of 63, respirations 18, O2 sat 96%. SKIN: Peripheral IV access and she is voiding in the bed dickerson. I's and O's are positive for the past 24 hours. No lymphadenopathy. HEENT: Ocular movements conjugate. Sclerae white. Conjunctivae normal. Oral cavity unremarkable. NECK: Supple. LUNGS: Symmetric clear breath sounds. HEART: S1, S2, regular rate. No S3, S4. ABDOMEN: Not distended, not tender to palpation. Ileostomy bag full of gas and somewhat dark liquid . Bowel sounds are present. No bladder distention. EXTREMITIES: No joint inflammatory activity, able to move extremities and awake, oriented, follows c sonia, pleasant. LABORATORY DATA: White cell count is 10.7 and now is 10.7, hemoglobin 11.5 and 10.5, platelets 311. There is a leukoerythroblastic picture with 56% bands are down to 37 and metamyelocytes were 5 and s he has nucleated RBCs as well. Sodium 138, creatinine 1.46, which is down from admission. Microbiol ogy: We have positive C. difficile antigen, but negative toxin. Reports include abdomen and pelvis CT from 11/16/2017 with stranding change and fecalization of small bowel within the patient's right l ower quadrant ostomy. ASSESSMENT: Type 2 diabetes with congestive heart failure, hypertension, prior GI bleeds, which were eventually culminated in ileostomy. Recurrent episodes of obstruction of the ileostomy, which have led to admissions, now she seems to have another one. DISCUSSION: The presence of bandemia can be associated with infectious disorders or just with increa se in adrenergic output associated with acute illness. Cardiopulmonary decompensation, transient cherise teremia, severe pain, small-bowel obstruction and a variety of other acute physiological processes ca n lead to bandemia. There was no evidence of abscess formation and she seems to be improving clinica lly at this point. The C. diff positive antigen test represents a colonization without inflammatory process in the gastrointestinal tract. Recommend continuation of conservative monitoring without ant imicrobial therapy.
[2017-11-20] MEDS: metroNIDAZOLE 500 MG in Premix Bag 1 BAG IVPB SCH ×3 (01:52→17:11)
[2017-11-20] MEDS: Lactated Ringer's 1,000 ML IV SCH ×3 (02:19→21:12)
[2017-11-20 06:40] LABS: Band 19 % (5-11); Eosinophils 2 % (0-10); Hemoglobin 9.2 g/dL (12.0-16.0); Lymphocytes 13 % (21-51); MDiff Complete? YES; Mean Corpuscular HGB CONC 31.7 g/dL (32.0-36.0); Mean Corpuscular Hemoglobin 31.7 pg (27.0-31.0); Mean Platelet Volume 6.6 fL (7.4-10.4); Monocytes 2 % (0-10); Neutrophil 64 % (42-75); Platelet Count 312 thou/uL (130-400); RBC Distribution Width 12.2 % (11.5-14.5); Red Blood Cell (RBC) Count 2.91 mill/uL (4.20-5.40); White Blood Cell (WBC) Count 11.6 thou/uL (4.8-10.8)
[2017-11-20] MEDS: Mometasone/Formoterol 120 PUFF INHALER INH SCH ×2 (07:39→19:16)
[2017-11-20 07:40] LABS: Albumin 3.1 g/dL (3.4-4.8)
[2017-11-20 07:42] LABS: Calcium 8.7 mg/dL (7.8-10.44); Chloride 114 mmol/L (98-107); Potassium 3.9 mmol/L (3.5-5.1); Sodium 137 mmol/L (136-145)
[2017-11-20 07:43] LABS: Glucose 78 mg/dL (83-110)
[2017-11-20 07:44] LABS: Anion Gap 11 mmol/L (10-20); Carbon Dioxide 16 mmol/L (23-31)
[2017-11-20 07:46] LABS: Calc. Creatinine Clearance 74 mL/min (70-130); Estimated GFR-MDRD 57
[2017-11-20 07:47] LABS: BUN (Urea Nitrogen) 31 mg/dL (9.8-20.1); BUN/Creatinine Ratio 27.43
[2017-11-20 07:52] LABS: Phosphorus 1.8 mg/dL (2.3-4.7)
[2017-11-20] MEDS ORDERED: Sodium Phosphate 15 MMOL in Sodium Chloride 0.9% 250 ML 250 ML IVPB SCH (09:00)
[2017-11-20] MEDS: Heparin 5,000 UNITS/ML VIAL SC SCH ×2 (09:19→20:58)
[2017-11-20] MEDS: Amlodipine 5 MG TAB PO SCH (09:19)
[2017-11-20] MEDS: Famotidine/PF 20 mg/2ml Vial SLOW IVP SCH (09:19)
[2017-11-20] MEDS: Cyanocobalamin (Vitamin B-12) 1,000 MCG TAB PO SCH (09:19)
[2017-11-20] MEDS: Carvedilol 6.25 MG TAB PO SCH ×2 (09:19→21:11)
[2017-11-20] MEDS: Folic Acid 1 MG TAB PO SCH (09:20)
[2017-11-20] MEDS: Saccharomyces boulardii 250 MG CAP PO SCH (09:20)
--- NOTE | 2017-11-20 09:59 | PDOC.PN ---
- Subjective Encounter Start Date: 11/20/17 Encounter Start Time: 07:30 pt has NG tube placed, she is weak, no fever - Objective Resuscitation Status: Resuscitation Status FULL:Full Resuscitation MAR Reviewed: Yes Vital Signs & Weight: Vital Signs (12 hours) Temp Pulse Resp BP BP Pulse Ox 11/20/17 09:19 78 156/76 H 11/20/17 07:57 96 11/20/17 07:39 78 20 96 11/20/17 07:25 98.0 F 88 18 167/77 H 100 11/20/17 07:24 96 11/20/17 07:19 78 20 96 11/20/17 04:00 97.6 F 93 16 150/76 H 95 11/19/17 23:44 97.8 F 84 16 136/68 94 L 11/19/17 23:15 88 16 92 L Weight Weight 229 lb I&O: 11/19/17 11/20/17 11/21/17 06:59 06:59 06:59 Intake Total 3060 1550 Output Total 700 600 950 Balance 2360 -600 600 Result Diagrams: 11/20/17 04:48 11/20/17 07:27 Additional Labs: Accuchecks 11/20/17 11/19/17 11/19/17 06:01 20:36 15:39 POC Glucose 75 79 95 11/19/17 11:39 POC Glucose 99 Phys Exam - Physical Examination Constitutional: NAD HEENT: PERRLA, moist MMs, sclera anicteric NG tube+ Neck: no JVD, supple Respiratory: no wheezing, no rales, no rhonchi Cardiovascular: RRR, no significant murmur, no rub Gastrointestinal: soft, no distention, positive bowel sounds diffuse upper discomfort, ilieostomy+ Musculoskeletal: no edema, pulses present Neurological: non-focal, normal sensation Psychiatric: normal affect, A&O x 3 Skin: no rash, normal turgor Dx/Plan (1) Abnormal blood electrolyte level Code(s): E87.8 - OTH DISORDERS OF ELECTROLYTE AND FLUID BALANCE, NEC Status: Acute (2) Acute renal failure superimposed on stage 3 chronic kidney disease Code(s): N17.9 - ACUTE KIDNEY FAILURE, UNSPECIFIED; N18.3 - CHRONIC KIDNEY DISEASE, STAGE 3 (MODERATE) Status: Acute (3) Dehydration Code(s): E86.0 - DEHYDRATION Status: Acute (4) Sepsis Code(s): A41.9 - SEPSIS, UNSPECIFIED ORGANISM Status: Acute (5) COPD (chronic obstructive pulmonary disease) Status: Chronic (6) DM type 2 (diabetes mellitus, type 2) Status: Chronic (7) H/O ileostomy Code(s): Z98.89 - OTHER SPECIFIED POSTPROCEDURAL STATES * DO NOT USE * Status : Chronic (8) HTN (hypertension) Code(s): I10 - ESSENTIAL (PRIMARY) HYPERTENSION Status: Chronic (9) Macrocytic anemia Code(s): D53.9 - NUTRITIONAL ANEMIA, UNSPECIFIED Status: Chronic (10) Obesity (BMI 30-39.9) Code(s): E66.9 - OBESITY, UNSPECIFIED Status: Chronic (11) Parastomal hernia Code(s): K43.5 - PARASTOMAL HERNIA WITHOUT OBSTRUCTION OR GANGRENE Status: Chronic (12) SBO (small bowel obstruction) Code(s): K56.609 - UNSP INTESTNL OBST, UNSP TO PARTIAL VERSUS COMPLETE OBST Status: Suspected (13) Bandemia Code(s): D72.825 - BANDEMIA Status: Acute - Plan cont current plan of care, continue antibiotics * continue NG tube with LIS as needed * surgery following * continue IV flagyl * bandemia improving * ID recommendation noted * medication reviewed as below * symptomatic treatment * today replace sodium phosphate. * currently NPO as per surgeon * renal function continue to improve, continue IVF Review of Systems - Review of Systems Eyes: negative: Pain, Vision Change, Conjunctivae Inflammation, Eyelid Inflammation, Redness, Other ENT: negative: Ear Pain, Ear Discharge, Nose Pain, Nose Discharge, Nose Congestion, Mouth Pain, Mouth Swelling, Throat Pain, Throat Swelling, Other Respiratory: negative: Cough, Dry, Shortness of Breath, Hemoptysis, SOB with Excertion, Pleuritic Pain, Sputum, Wheezing Cardiovascular: negative: chest pain, palpitations, orthopnea, paroxysmal nocturnal dyspnea, edema, light headedness, other Gastrointestinal: Nausea, Abdominal Pain. negative: Vomiting, Diarrhea, Constipation, Melena, Hematochezia, Other Genitourinary: negative: Dysuria, Frequency, Incontinence, Hematuria, Retention , Other Musculoskeletal: negative: Neck Pain, Shoulder Pain, Arm Pain, Back Pain, Hand Pain, Leg Pain, Foot Pain, Other Skin: negative: Rash, Lesions, Alan, Bruising, Other - Medications/Allergies Allergies/Adverse Reactions: Allergies Allergy/AdvReac Type Severity Reaction Status Date / Time No Known Allergies Allergy Verified 03/18/15 17:23 Medications: Current Medications Acetaminophen (Tylenol) 650 mg PO Q4H PRN PRN Reason: Headache/Fever or Pain Last Admin: 11/18/17 22:11 Dose: 650 mg Albuterol/Ipratropium (Duoneb) 3 ml NEB [id number] [facility] Last Admin: 11/20/17 07:19 Dose: 3 ml Amlodipine Besylate (Norvasc) 5 mg PO DAILY [facility] Last Admin: 11/20/17 09:19 Dose: Not Given Artificial Tears (Tears Naturale) 0 drop EA EYE PRN PRN PRN Reason: Dry Eyes Atorvastatin Calcium (Lipitor) 20 mg PO HS [facility] Last Admin: 11/19/17 20:05 Dose: Not Given Carvedilol (Coreg) 12.5 mg PO BID [facility] Last Admin: 11/20/17 09:19 Dose: Not Given Cyanocobalamin (Vitamin B-12) 1,000 mcg PO DAILY [facility] Last Admin: 11/20/17 09:19 Dose: Not Given Dextrose/Water (Dextrose 50%) 25 gm SLOW IVP PRN PRN PRN Reason: Hypoglycemia Famotidine (Pepcid) 20 mg SLOW IVP DAILY [facility] Last Admin: 11/20/17 09:19 Dose: 20 mg Folic Acid (Folvite) 1 mg PO DAILY [facility] Last Admin: 11/20/17 09:20 Dose: Not Given Glucagon (Glucagon) 1 mg IM PRN PRN PRN Reason: Hypoglycemia Guaifenesin (Robitussin Sf) 200 mg PO Q4H PRN PRN Reason: Cough Heparin Sodium (Porcine) (Heparin) 5,000 units SC BID [facility] Last Admin: 11/20/17 09:19 Dose: 5,000 units Hydralazine HCl (Apresoline) 10 mg SLOW IVP Q4H PRN PRN Reason: Systolic BP > 180 Dextrose/Water (D5w) 1,000 mls @ 0 mls/hr IV .Q0M PRN PRN Reason: Hypoglycemia Lactated Ringer's (Lactated Ringer's) 1,000 mls @ 125 mls/hr IV .Q8H [facility] Last Admin: 11/20/17 02:19 Dose: 1,000 mls Metronidazole 500 mg/ Device 100 mls @ 100 mls/hr IVPB 0200,1000,1800 [facility] Last Admin: 11/20/17 01:52 Dose: 100 mls Sodium Phosphate 15 mmol/ (Sodium Chloride) 255 mls @ 42.5 mls/hr IVPB 0900 [facility] Stop: 11/20/17 15:00 Last Admin: 11/20/17 09:19 Dose: 255 mls Insulin Human Lispro (Humalog) 0 units SC .MODERATE SLIDING SC PRN PRN Reason: Moderate Correctional Scale Insulin Human Lispro (Humalog) 0 units SC .BEDTIME SLIDING SC PRN PRN Reason: Bedtime Correctional Scale Magnesium Hydroxide (Milk Of Magnesium) 30 ml PO DAILYPRN PRN PRN Reason: Constipation Mineral Oil/White Petrolatum (Eucerin Cream) 0 gm TOP BIDPRN PRN PRN Reason: Dry Skin Mometasone Furoate/Formoterol Fumar (Dulera 200 Mcg/5 Mcg Inhaler) 2 puff INH BID-RT [facility] Last Admin: 11/20/17 07:39 Dose: 2 puff Morphine Sulfate (Morphine) 2 mg SLOW IVP Q2H PRN PRN Reason: Pain Last Admin: 11/18/17 15:45 Dose: 2 mg Ondansetron HCl (Zofran Odt) 4 mg SL Q6H PRN PRN Reason: Nausea/Vomiting Ondansetron HCl (Zofran) 4 mg IVP Q6H PRN PRN Reason: Nausea/Vomiting Last Admin: 11/19/17 03:16 Dose: 4 mg Phenol (Chloraseptic [place] 180 Ml Bot) 0 ml PO PRN PRN PRN Reason: Sore Throat Saccharomyces Boulardii (Florastor) 250 mg PO DAILY [facility] Last Admin: 11/20/17 09:20 Dose: Not Given Sodium Chloride ([place] Nasal [place] 0.65%) 0 ml EA NARE QIDPRN PRN PRN Reason: Nasal Congestion Sodium Chloride (Flush - Normal Saline) 10 ml IVF Q12HR [facility] Last Admin: 11/20/17 09:20 Dose: 10 ml Sodium Chloride (Flush - Normal Saline) 10 ml IVF PRN PRN PRN Reason: Saline Flush
--- NOTE | 2017-11-20 11:40 | PRG ---
DATE OF SERVICE: 11/20/2017 SUBJECTIVE: Ms. Du is up in the chair with physical therapy. Denies abdominal pain. PHYSICAL EXAMINATION: VITAL SIGNS: Her blood pressure 156/76, pulse 70. She is afebrile. NG output overnight 950. It is bilious. ABDOMEN: Soft, it is diffuse mildly tender without guarding or rebound. She does have decreased bow el sounds. ASSESSMENT: Small-bowel obstruction. PLAN: Continue n.p.o., NG tube conservative management. If not improved tomorrow Wednesday, likely Gas trografin small bowel follow-through.
[2017-11-20] MEDS: Atorvastatin Calcium 20 MG TAB PO SCH (21:11)
[2017-11-21] MEDS: metroNIDAZOLE 500 MG in Premix Bag 1 BAG IVPB SCH ×3 (02:14→17:43)
[2017-11-21] MEDS: Lactated Ringer's 1,000 ML IV SCH ×3 (02:25→21:41)
[2017-11-21] MEDS: Mometasone/Formoterol 120 PUFF INHALER INH SCH ×2 (07:50→19:29)
--- NOTE | 2017-11-21 09:13 | PDOC.GSPN ---
Surgery Progress Note: Subj - Subjective Patient reports: no new complaints (Minimal ostomy output) Surgery Progress Note: Obj - Vital signs Vital signs: Vital Signs - Most Recent Temp Pulse Resp BP Pulse Ox 98.8 F 82 20 165/74 H 96 11/21/17 07:40 11/21/17 07:50 11/21/17 07:50 11/21/17 07:40 11/21/17 07:50 - Physical Exam General: no distress Cardiovascular: regular rate and rhythm Respiratory: clear to auscultation Abdomen: soft, nondistended Surgery Progress Note: Results - Labs Result Diagrams: 11/20/17 04:48 11/20/17 07:27 Lab results: Laboratory Results - last 24 hr 11/20/17 11/21/17 22:19 04:25 POC Glucose 125 H 78 Surgery Progress Note: A/P - Problem (1) Small bowel obstruction Current Visit: Yes Code(s): K56.609 - UNSP INTESTNL OBST, UNSP TO PARTIAL VERSUS COMPLETE OBST Status: Acute - Plan Plan: SBFT today
[2017-11-21] MEDS: Famotidine/PF 20 mg/2ml Vial SLOW IVP SCH (09:17)
[2017-11-21] MEDS: Heparin 5,000 UNITS/ML VIAL SC SCH ×2 (09:17→20:47)
[2017-11-21] MEDS: Carvedilol 6.25 MG TAB PO SCH ×2 (09:44→21:40)
[2017-11-21] MEDS: Saccharomyces boulardii 250 MG CAP PO SCH (09:44)
[2017-11-21] MEDS: Amlodipine 5 MG TAB PO SCH (09:44)
[2017-11-21] MEDS: Cyanocobalamin (Vitamin B-12) 1,000 MCG TAB PO SCH (09:44)
[2017-11-21] MEDS: Folic Acid 1 MG TAB PO SCH (09:44)
--- NOTE | 2017-11-21 14:26 | RAD ---
SMALL BOWEL FOLLOW THORUGH: DATE: 11/21/17. PROVIDED CLINICAL HISTORY: Small bowel obstruction. FINDINGS: The diagnostics tech radiograph demonstrates a dilated loop of bowel within the left mid abdomen which is gas-fi lled. Administration of water-soluble contrast through the patient's enteric catheter demonstrates o pacification of dilated loops of bowel. There is contrast material within the patient's ostomy by th e 2-1/2 hour suzanne. IMPRESSION: No evidence for high-grade obstruction. POS: BOLA
[2017-11-21] MEDS ORDERED: MD-Gastroview 120 ML BOT ONE (14:45)
--- NOTE | 2017-11-21 18:45 | PDOC.PN ---
- Subjective Encounter Start Date: 11/21/17 Encounter Start Time: 18:45 Subjective: nsg notes rev, sancho ovn - Objective Resuscitation Status: Resuscitation Status FULL:Full Resuscitation Vital Signs & Weight: Vital Signs (12 hours) Temp Pulse Resp BP BP Pulse Ox 11/21/17 15:55 97.5 F L 91 20 169/92 H 97 11/21/17 12:54 80 20 11/21/17 11:45 97.5 F L 80 20 171/68 H 97 11/21/17 09:44 82 156/76 H 11/21/17 08:15 97 11/21/17 07:50 82 20 96 11/21/17 07:44 96 11/21/17 07:40 98.8 F 84 14 165/74 H 97 11/21/17 07:37 82 20 96 Weight Weight 229 lb I&O: 11/20/17 11/21/17 11/22/17 06:59 06:59 06:59 Intake Total 4730 1740 Output Total 600 3400 2425 Balance -600 1330 -685 Result Diagrams: 11/23/17 07:49 11/23/17 07:49 Additional Labs: Accuchecks 11/21/17 11/21/17 11/21/17 16:15 12:49 04:25 POC Glucose 81 74 78 11/20/17 22:19 POC Glucose 125 H Dx/Plan - Plan * sbo mgmt as per surg * pt weak but denies pain, no c/o otherwise * * hypertension, poorly controlled * has prn iv hydralazine but is currently not taking her home oral regimen which includes bb * clonidine patch * * dw pt and bedside nsg
[2017-11-21] MEDS ORDERED: cloNIDine 0.1mg/24 Hour PATCH TD SCH (20:00)
[2017-11-21] MEDS: Atorvastatin Calcium 20 MG TAB PO SCH (21:40)
[2017-11-22] MEDS: metroNIDAZOLE 500 MG in Premix Bag 1 BAG IVPB SCH ×3 (02:27→18:32)
[2017-11-22] MEDS: Lactated Ringer's 1,000 ML IV SCH ×4 (06:15→23:58)
[2017-11-22] MEDS: Mometasone/Formoterol 120 PUFF INHALER INH SCH ×2 (06:37→19:17)
[2017-11-22] MEDS: Heparin 5,000 UNITS/ML VIAL SC SCH ×2 (07:34→20:25)
[2017-11-22] MEDS: Famotidine/PF 20 mg/2ml Vial SLOW IVP SCH (07:34)
[2017-11-22 09:55] LABS: Band 3 % (5-11); Eosinophils 2 % (0-10); Hemoglobin 10.2 g/dL (12.0-16.0); Lymphocytes 17 % (21-51); MDiff Complete? YES; Mean Corpuscular HGB CONC 33.2 g/dL (32.0-36.0); Mean Corpuscular Hemoglobin 32.9 pg (27.0-31.0); Mean Platelet Volume 6.5 fL (7.4-10.4); Metamyelocyte 3 % (0-0); Monocytes 7 % (0-10); Myelocyte 1 % (0-0); Neutrophil 63 % (42-75); PLT Morphology Comment Appears Adequate; Platelet Count 342 thou/uL (130-400); Polychromasia SLIGHT = 2-3 cells (100X) (0-2/hpf); RBC Distribution Width 12.6 % (11.5-14.5); Reactive Lymphocytes 4 % (0-10); White Blood Cell (WBC) Count 11.3 thou/uL (4.8-10.8)
[2017-11-22] MEDS: Carvedilol 6.25 MG TAB PO SCH ×2 (10:06→20:22)
[2017-11-22] MEDS: Amlodipine 5 MG TAB PO SCH (10:06)
[2017-11-22] MEDS: Cyanocobalamin (Vitamin B-12) 1,000 MCG TAB PO SCH (10:07)
[2017-11-22] MEDS: Saccharomyces boulardii 250 MG CAP PO SCH (10:07)
[2017-11-22] MEDS: Folic Acid 1 MG TAB PO SCH (10:07)
--- NOTE | 2017-11-22 11:36 | PDOC.PN ---
- Subjective Encounter Start Date: 11/22/17 Encounter Start Time: 08:40 Patient seen and examined. No new complaints. No overnight events - Objective Resuscitation Status: Resuscitation Status FULL:Full Resuscitation MAR Reviewed: Yes Vital Signs & Weight: Vital Signs (12 hours) Temp Pulse Resp BP BP Pulse Ox 11/22/17 11:19 97.4 F L 92 16 169/83 H 96 11/22/17 10:06 89 190/66 H 11/22/17 09:14 89 165/71 H 11/22/17 08:10 96 11/22/17 07:35 83 190/66 H 11/22/17 07:05 97.7 F 83 16 190/66 H 96 11/22/17 06:35 79 18 95 11/22/17 00:02 95 11/22/17 00:00 97.5 F L 95 16 165/86 H 98 Weight Weight 229 lb I&O: 11/21/17 11/22/17 11/23/17 06:59 06:59 06:59 Intake Total 4730 3480 Output Total 3400 3375 Balance 1330 105 Result Diagrams: 11/22/17 08:28 11/20/17 07:27 Additional Labs: Accuchecks 11/22/17 11/22/17 11/21/17 11:04 05:59 21:13 POC Glucose 81 71 79 11/21/17 11/21/17 16:15 12:49 POC Glucose 81 74 Radiology Reviewed by me: Yes (small bowel xray reviewed) Phys Exam - Physical Examination Constitutional: NAD HEENT: PERRLA, moist MMs, sclera anicteric NG tube+ Neck: no JVD, supple Respiratory: no wheezing, no rales, no rhonchi Cardiovascular: RRR, no significant murmur, no rub Gastrointestinal: soft, non-tender, no distention, positive bowel sounds ilieostomy with liquid green stool Musculoskeletal: no edema, pulses present Neurological: non-focal, normal sensation Lymphatic: no nodes Psychiatric: normal affect, A&O x 3 Skin: no rash, normal turgor Dx/Plan (1) Abnormal blood electrolyte level Code(s): E87.8 - OTH DISORDERS OF ELECTROLYTE AND FLUID BALANCE, NEC Status: Acute (2) Acute renal failure superimposed on stage 3 chronic kidney disease Code(s): N17.9 - ACUTE KIDNEY FAILURE, UNSPECIFIED; N18.3 - CHRONIC KIDNEY DISEASE, STAGE 3 (MODERATE) Status: Acute (3) Dehydration Code(s): E86.0 - DEHYDRATION Status: Acute (4) Sepsis Code(s): A41.9 - SEPSIS, UNSPECIFIED ORGANISM Status: Acute (5) COPD (chronic obstructive pulmonary disease) Status: Chronic (6) DM type 2 (diabetes mellitus, type 2) Status: Chronic (7) H/O ileostomy Code(s): Z98.89 - OTHER SPECIFIED POSTPROCEDURAL STATES * DO NOT USE * Status : Chronic (8) HTN (hypertension) Code(s): I10 - ESSENTIAL (PRIMARY) HYPERTENSION Status: Chronic (9) Macrocytic anemia Code(s): D53.9 - NUTRITIONAL ANEMIA, UNSPECIFIED Status: Chronic (10) Obesity (BMI 30-39.9) Code(s): E66.9 - OBESITY, UNSPECIFIED Status: Chronic (11) Parastomal hernia Code(s): K43.5 - PARASTOMAL HERNIA WITHOUT OBSTRUCTION OR GANGRENE Status: Chronic (12) SBO (small bowel obstruction) Code(s): K56.609 - UNSP INTESTNL OBST, UNSP TO PARTIAL VERSUS COMPLETE OBST Status: Suspected (13) Bandemia Code(s): D72.825 - BANDEMIA Status: Acute - Plan cont current plan of care, continue antibiotics * bandemia improving * pt still NPO and has NG tube with LIS * will defer diet advancement to surgeon * pt does not want to go to [facility] on discharge * medication reviewed as below * symptomatic treatment * continue IVF * monitor labs and replace electrolytes as needed. * continue flagyl Review of Systems - Review of Systems Constitutional: weakness. negative: fever, chills, sweats, malaise, other ENT: negative: Ear Pain, Ear Discharge, Nose Pain, Nose Discharge, Nose Congestion, Mouth Pain, Mouth Swelling, Throat Pain, Throat Swelling, Other Respiratory: negative: Cough, Dry, Shortness of Breath, Hemoptysis, SOB with Excertion, Pleuritic Pain, Sputum, Wheezing Cardiovascular: negative: chest pain, palpitations, orthopnea, paroxysmal nocturnal dyspnea, edema, light headedness, other Gastrointestinal: negative: Nausea, Vomiting, Abdominal Pain, Diarrhea, Constipation, Melena, Hematochezia, Other Genitourinary: negative: Dysuria, Frequency, Incontinence, Hematuria, Retention , Other Musculoskeletal: negative: Neck Pain, Shoulder Pain, Arm Pain, Back Pain, Hand Pain, Leg Pain, Foot Pain, Other Skin: negative: Rash, Lesions, Alan, Bruising, Other - Medications/Allergies Allergies/Adverse Reactions: Allergies Allergy/AdvReac Type Severity Reaction Status Date / Time No Known Allergies Allergy Verified 03/18/15 17:23 Medications: Current Medications Acetaminophen (Tylenol) 650 mg PO Q4H PRN PRN Reason: Headache/Fever or Pain Last Admin: 11/18/17 22:11 Dose: 650 mg Albuterol/Ipratropium (Duoneb) 3 ml NEB [id number] [facility] Last Admin: 11/22/17 06:35 Dose: 3 ml Amlodipine Besylate (Norvasc) 5 mg PO DAILY [facility] Last Admin: 11/22/17 10:06 Dose: Not Given Artificial Tears (Tears Naturale) 0 drop EA EYE PRN PRN PRN Reason: Dry Eyes Atorvastatin Calcium (Lipitor) 20 mg PO HS [facility] Last Admin: 11/21/17 21:40 Dose: Not Given Carvedilol (Coreg) 12.5 mg PO BID [facility] Last Admin: 11/22/17 10:06 Dose: Not Given Clonidine (Xmmcxodc-Dno-8 Patch) 0.1 mg TD Q7D@1999 [facility] Last Admin: 11/21/17 20:48 Dose: 0.1 mg Cyanocobalamin (Vitamin B-12) 1,000 mcg PO DAILY [facility] Last Admin: 11/22/17 10:07 Dose: Not Given Dextrose/Water (Dextrose 50%) 25 gm SLOW IVP PRN PRN PRN Reason: Hypoglycemia Last Admin: 11/20/17 21:38 Dose: 25 gm Famotidine (Pepcid) 20 mg SLOW IVP DAILY [facility] Last Admin: 11/22/17 07:34 Dose: 20 mg Folic Acid (Folvite) 1 mg PO DAILY [facility] Last Admin: 11/22/17 10:07 Dose: Not Given Glucagon (Glucagon) 1 mg IM PRN PRN PRN Reason: Hypoglycemia Guaifenesin (Robitussin Sf) 200 mg PO Q4H PRN PRN Reason: Cough Heparin Sodium (Porcine) (Heparin) 5,000 units SC BID [facility] Last Admin: 11/22/17 07:34 Dose: 5,000 units Hydralazine HCl (Apresoline) 10 mg SLOW IVP Q4H PRN PRN Reason: Systolic BP > 180 Last Admin: 11/22/17 07:35 Dose: 10 mg Dextrose/Water (D5w) 1,000 mls @ 0 mls/hr IV .Q0M PRN PRN Reason: Hypoglycemia Lactated Ringer's (Lactated Ringer's) 1,000 mls @ 125 mls/hr IV .Q8H [facility] Last Admin: 11/22/17 09:10 Dose: 1,000 mls Metronidazole 500 mg/ Device 100 mls @ 100 mls/hr IVPB 0200,1000,1800 [facility] Last Admin: 11/22/17 09:10 Dose: 100 mls Insulin Human Lispro (Humalog) 0 units SC .MODERATE SLIDING SC PRN PRN Reason: Moderate Correctional Scale Insulin Human Lispro (Humalog) 0 units SC .BEDTIME SLIDING SC PRN PRN Reason: Bedtime Correctional Scale Magnesium Hydroxide (Milk Of Magnesium) 30 ml PO DAILYPRN PRN PRN Reason: Constipation Mineral Oil/White Petrolatum (Eucerin Cream) 0 gm TOP BIDPRN PRN PRN Reason: Dry Skin Mometasone Furoate/Formoterol Fumar (Dulera 200 Mcg/5 Mcg Inhaler) 2 puff INH BID-RT [facility] Last Admin: 11/22/17 06:37 Dose: 2 puff Morphine Sulfate (Morphine) 2 mg SLOW IVP Q2H PRN PRN Reason: Pain Last Admin: 11/18/17 15:45 Dose: 2 mg Ondansetron HCl (Zofran Odt) 4 mg SL Q6H PRN PRN Reason: Nausea/Vomiting Ondansetron HCl (Zofran) 4 mg IVP Q6H PRN PRN Reason: Nausea/Vomiting Last Admin: 11/19/17 03:16 Dose: 4 mg Phenol (Chloraseptic [place] 180 Ml Bot) 0 ml PO PRN PRN PRN Reason: Sore Throat Saccharomyces Boulardii (Florastor) 250 mg PO DAILY [facility] Last Admin: 11/22/17 10:07 Dose: Not Given Sodium Chloride ([place] Nasal [place] 0.65%) 0 ml EA NARE QIDPRN PRN PRN Reason: Nasal Congestion Sodium Chloride (Flush - Normal Saline) 10 ml IVF Q12HR [facility] Last Admin: 11/22/17 10:07 Dose: Not Given Sodium Chloride (Flush - Normal Saline) 10 ml IVF PRN PRN PRN Reason: Saline Flush
[2017-11-22 11:54] LABS: Calcium 9.1 mg/dL (7.8-10.44); Chloride 110 mmol/L (98-107); Potassium 3.1 mmol/L (3.5-5.1); Sodium 142 mmol/L (136-145)
[2017-11-22 11:55] LABS: Glucose 86 mg/dL (83-110)
[2017-11-22 11:56] LABS: Anion Gap 15 mmol/L (10-20); Carbon Dioxide 20 mmol/L (23-31)
[2017-11-22 11:58] LABS: Calc. Creatinine Clearance 90 mL/min (70-130); Estimated GFR-MDRD 72; Phosphorus 2.1 mg/dL (2.3-4.7)
[2017-11-22 11:59] LABS: BUN (Urea Nitrogen) 12 mg/dL (9.8-20.1)
[2017-11-22] MEDS ORDERED: Potassium Phosphate 30 MMOL in Sodium Chloride 0.9% 500 ML IVPB SCH (13:00)
[2017-11-22] MEDS: Atorvastatin Calcium 20 MG TAB PO SCH (20:21)
[2017-11-23] MEDS: metroNIDAZOLE 500 MG in Premix Bag 1 BAG IVPB SCH ×2 (01:48→09:44)
[2017-11-23] MEDS: Mometasone/Formoterol 120 PUFF INHALER INH SCH (05:51)
[2017-11-23 08:06] LABS: Hemoglobin 9.1 g/dL (12.0-16.0); Mean Corpuscular HGB CONC 31.9 g/dL (32.0-36.0); Mean Corpuscular Hemoglobin 31.5 pg (27.0-31.0); Mean Corpuscular Volume 98.8 fL (78.0-98.0); Mean Platelet Volume 6.3 fL (7.4-10.4); Platelet Count 312 thou/uL (130-400); RBC Distribution Width 12.9 % (11.5-14.5); Red Blood Cell (RBC) Count 2.88 mill/uL (4.20-5.40); White Blood Cell (WBC) Count 9.5 thou/uL (4.8-10.8)
[2017-11-23 08:16] LABS: Anion Gap 12 mmol/L (10-20); BUN (Urea Nitrogen) 10 mg/dL (9.8-20.1); Calc. Creatinine Clearance 91 mL/min (70-130); Calcium 8.2 mg/dL (7.8-10.44); Carbon Dioxide 22 mmol/L (23-31); Chloride 109 mmol/L (98-107); Estimated GFR-MDRD 73; Glucose 103 mg/dL (83-110); Magnesium 1.2 mg/dL (1.6-2.6); Phosphorus 2.4 mg/dL (2.3-4.7); Potassium 3.2 mmol/L (3.5-5.1); Sodium 140 mmol/L (136-145)
[2017-11-23] MEDS: Amlodipine 5 MG TAB PO SCH (08:41)
[2017-11-23] MEDS: Famotidine/PF 20 mg/2ml Vial SLOW IVP SCH (08:41)
[2017-11-23] MEDS: Heparin 5,000 UNITS/ML VIAL SC SCH (08:41)
[2017-11-23] MEDS: Folic Acid 1 MG TAB PO SCH (08:42)
[2017-11-23] MEDS: Saccharomyces boulardii 250 MG CAP PO SCH (08:42)
[2017-11-23] MEDS: Carvedilol 6.25 MG TAB PO SCH (08:42)
[2017-11-23] MEDS: Cyanocobalamin (Vitamin B-12) 1,000 MCG TAB PO SCH (08:42)
[2017-11-23 08:54] LABS: Band 7 % (5-11); Eosinophils 2 % (0-10); Lymphocytes 23 % (21-51); MDiff Complete? YES; Metamyelocyte 2 % (0-0); Monocytes 11 % (0-10); Myelocyte 1 % (0-0); Neutrophil 53 % (42-75); PLT Morphology Comment Appears Adequate; Polychromasia SLIGHT = 2-3 cells (100X) (0-2/hpf)
[2017-11-23] MEDS: Lactated Ringer's 1,000 ML IV SCH (09:45)
[2017-11-23] MEDS ORDERED: Magnesium Sulfate 4 GM in Sodium Chloride 0.9% 250 ML 250 ML IVPB SCH (10:30)
[2017-11-23] MEDS ORDERED: Potassium Chloride 20 MEQ in Premix Bag 1 BAG IVPB SCH (10:30)
[2017-11-23] MEDS ORDERED: Potassium Chloride 20 MEQ TAB PO SCH (10:30)
--- NOTE | 2017-11-23 11:52 | PDOC.PN ---
- Subjective Encounter Start Date: 11/23/17 Encounter Start Time: 08:00 NG tube removed, started on clear liquid diet, tolerating diet, no fever, no abdominal pain - Objective Resuscitation Status: Resuscitation Status FULL:Full Resuscitation MAR Reviewed: Yes Vital Signs & Weight: Vital Signs (12 hours) Temp Pulse Resp BP BP Pulse Ox 11/23/17 11:28 80 14 95 11/23/17 10:48 97.9 F 79 16 166/88 H 98 11/23/17 08:41 71 166/74 H 11/23/17 08:40 97 11/23/17 07:47 98.2 F 71 18 166/74 H 97 11/23/17 05:51 83 14 95 11/23/17 05:48 83 14 95 11/23/17 03:53 98.5 F 85 14 139/70 97 11/23/17 02:27 95 11/23/17 00:25 80 12 11/22/17 23:59 98.4 F 80 14 140/75 98 Weight Weight 229 lb I&O: 11/22/17 11/23/17 11/24/17 06:59 06:59 06:59 Intake Total 3480 3510 Output Total 3375 950 Balance 105 2560 Result Diagrams: 11/23/17 07:49 11/23/17 07:49 Additional Labs: Accuchecks 11/23/17 11/22/17 11/22/17 06:06 20:46 15:54 POC Glucose 98 116 H 104 Phys Exam - Physical Examination Constitutional: NAD HEENT: PERRLA, moist MMs, sclera anicteric Neck: no JVD, supple Respiratory: no wheezing, no rales, no rhonchi Cardiovascular: RRR, no significant murmur, no rub Gastrointestinal: soft, non-tender, no distention, positive bowel sounds Ileostomy+ Musculoskeletal: no edema, pulses present Neurological: non-focal, normal sensation Psychiatric: normal affect, A&O x 3 Skin: no rash, normal turgor Dx/Plan (1) Abnormal blood electrolyte level Code(s): E87.8 - OTH DISORDERS OF ELECTROLYTE AND FLUID BALANCE, NEC Status: Acute (2) Acute renal failure superimposed on stage 3 chronic kidney disease Code(s): N17.9 - ACUTE KIDNEY FAILURE, UNSPECIFIED; N18.3 - CHRONIC KIDNEY DISEASE, STAGE 3 (MODERATE) Status: Acute (3) Dehydration Code(s): E86.0 - DEHYDRATION Status: Acute (4) Sepsis Code(s): A41.9 - SEPSIS, UNSPECIFIED ORGANISM Status: Acute (5) COPD (chronic obstructive pulmonary disease) Status: Chronic (6) DM type 2 (diabetes mellitus, type 2) Status: Chronic (7) H/O ileostomy Code(s): Z98.89 - OTHER SPECIFIED POSTPROCEDURAL STATES * DO NOT USE * Status : Chronic (8) HTN (hypertension) Code(s): I10 - ESSENTIAL (PRIMARY) HYPERTENSION Status: Chronic (9) Macrocytic anemia Code(s): D53.9 - NUTRITIONAL ANEMIA, UNSPECIFIED Status: Chronic (10) Obesity (BMI 30-39.9) Code(s): E66.9 - OBESITY, UNSPECIFIED Status: Chronic (11) Parastomal hernia Code(s): K43.5 - PARASTOMAL HERNIA WITHOUT OBSTRUCTION OR GANGRENE Status: Chronic (12) SBO (small bowel obstruction) Code(s): K56.609 - UNSP INTESTNL OBST, UNSP TO PARTIAL VERSUS COMPLETE OBST Status: Suspected (13) Bandemia Code(s): D72.825 - BANDEMIA Status: Acute - Plan cont current plan of care, continue antibiotics * replace magnesium * replace potassium * diet advancement as per surgeon * this pt is continue to be a risk for readmission * medication reviewed as below * symptomatic treatment * continue IVF and flagyl * discharge expecting in 24-48 hours * pt does not want placement * ambulate with PT. Review of Systems - Review of Systems Eyes: negative: Pain, Vision Change, Conjunctivae Inflammation, Eyelid Inflammation, Redness, Other ENT: negative: Ear Pain, Ear Discharge, Nose Pain, Nose Discharge, Nose Congestion, Mouth Pain, Mouth Swelling, Throat Pain, Throat Swelling, Other Respiratory: negative: Cough, Dry, Shortness of Breath, Hemoptysis, SOB with Excertion, Pleuritic Pain, Sputum, Wheezing Cardiovascular: negative: chest pain, palpitations, orthopnea, paroxysmal nocturnal dyspnea, edema, light headedness, other Gastrointestinal: negative: Nausea, Vomiting, Abdominal Pain, Diarrhea, Constipation, Melena, Hematochezia, Other Genitourinary: negative: Dysuria, Frequency, Incontinence, Hematuria, Retention , Other Musculoskeletal: negative: Neck Pain, Shoulder Pain, Arm Pain, Back Pain, Hand Pain, Leg Pain, Foot Pain, Other Skin: negative: Rash, Lesions, Alan, Bruising, Other - Medications/Allergies Allergies/Adverse Reactions: Allergies Allergy/AdvReac Type Severity Reaction Status Date / Time No Known Allergies Allergy Verified 03/18/15 17:23 Medications: Current Medications Acetaminophen (Tylenol) 650 mg PO Q4H PRN PRN Reason: Headache/Fever or Pain Last Admin: 11/18/17 22:11 Dose: 650 mg Albuterol/Ipratropium (Duoneb) 3 ml NEB [id number] [facility] Last Admin: 11/23/17 11:28 Dose: 3 ml Amlodipine Besylate (Norvasc) 5 mg PO DAILY [facility] Last Admin: 11/23/17 08:41 Dose: 5 mg Artificial Tears (Tears Naturale) 0 drop EA EYE PRN PRN PRN Reason: Dry Eyes Atorvastatin Calcium (Lipitor) 20 mg PO HS [facility] Last Admin: 11/22/17 20:21 Dose: 20 mg Carvedilol (Coreg) 12.5 mg PO BID [facility] Last Admin: 11/23/17 08:42 Dose: 12.5 mg Clonidine (Ngvutqsf-Qmg-7 Patch) 0.1 mg TD Q7D@1999 [facility] Last Admin: 11/21/17 20:48 Dose: 0.1 mg Cyanocobalamin (Vitamin B-12) 1,000 mcg PO DAILY [facility] Last Admin: 11/23/17 08:42 Dose: 1,000 mcg Dextrose/Water (Dextrose 50%) 25 gm SLOW IVP PRN PRN PRN Reason: Hypoglycemia Last Admin: 11/20/17 21:38 Dose: 25 gm Famotidine (Pepcid) 20 mg SLOW IVP DAILY [facility] Last Admin: 11/23/17 08:41 Dose: 20 mg Folic Acid (Folvite) 1 mg PO DAILY [facility] Last Admin: 11/23/17 08:42 Dose: 1 mg Glucagon (Glucagon) 1 mg IM PRN PRN PRN Reason: Hypoglycemia Guaifenesin (Robitussin Sf) 200 mg PO Q4H PRN PRN Reason: Cough Heparin Sodium (Porcine) (Heparin) 5,000 units SC BID [facility] Last Admin: 11/23/17 08:41 Dose: 5,000 units Hydralazine HCl (Apresoline) 10 mg SLOW IVP Q4H PRN PRN Reason: Systolic BP > 180 Last Admin: 11/22/17 07:35 Dose: 10 mg Dextrose/Water (D5w) 1,000 mls @ 0 mls/hr IV .Q0M PRN PRN Reason: Hypoglycemia Metronidazole 500 mg/ Device 100 mls @ 100 mls/hr IVPB 0200,1000,1800 [facility] Last Admin: 11/23/17 09:44 Dose: 100 mls Lactated Ringer's (Lactated Ringer's) 1,000 mls @ 100 mls/hr IV .Q10H [facility] Last Admin: 11/23/17 09:45 Dose: Not Given Magnesium Sulfate 4 gm/ Sodium (Chloride) 258 mls @ 86 mls/hr IVPB 1030 [facility] Stop: 11/23/17 14:00 Last Admin: 11/23/17 10:47 Dose: 258 mls Potassium Chloride 20 meq/ (Device) 100 mls @ 50 mls/hr IVPB 1030 [facility] Stop: 11/23/17 14:00 Last Admin: 11/23/17 10:47 Dose: 100 mls Insulin Human Lispro (Humalog) 0 units SC .MODERATE SLIDING SC PRN PRN Reason: Moderate Correctional Scale Insulin Human Lispro (Humalog) 0 units SC .BEDTIME SLIDING SC PRN PRN Reason: Bedtime Correctional Scale Magnesium Hydroxide (Milk Of Magnesium) 30 ml PO DAILYPRN PRN PRN Reason: Constipation Mineral Oil/White Petrolatum (Eucerin Cream) 0 gm TOP BIDPRN PRN PRN Reason: Dry Skin Mometasone Furoate/Formoterol Fumar (Dulera 200 Mcg/5 Mcg Inhaler) 2 puff INH BID-RT [facility] Last Admin: 11/23/17 05:51 Dose: 2 puff Morphine Sulfate (Morphine) 2 mg SLOW IVP Q2H PRN PRN Reason: Pain Last Admin: 11/18/17 15:45 Dose: 2 mg Ondansetron HCl (Zofran Odt) 4 mg SL Q6H PRN PRN Reason: Nausea/Vomiting Ondansetron HCl (Zofran) 4 mg IVP Q6H PRN PRN Reason: Nausea/Vomiting Last Admin: 11/19/17 03:16 Dose: 4 mg Phenol (Chloraseptic [place] 180 Ml Bot) 0 ml PO PRN PRN PRN Reason: Sore Throat Potassium Chloride (K-Dur) 40 meq PO 1030 [facility] Stop: 11/23/17 12:00 Last Admin: 11/23/17 10:46 Dose: 40 meq Saccharomyces Boulardii (Florastor) 250 mg PO DAILY [facility] Last Admin: 11/23/17 08:42 Dose: 250 mg Sodium Chloride ([place] Nasal [place] 0.65%) 0 ml EA NARE QIDPRN PRN PRN Reason: Nasal Congestion Sodium Chloride (Flush - Normal Saline) 10 ml IVF Q12HR [facility] Last Admin: 11/23/17 08:48 Dose: 10 ml Sodium Chloride (Flush - Normal Saline) 10 ml IVF PRN PRN PRN Reason: Saline Flush
--- NOTE | 2017-11-23 14:03 | DIS ---
DATE OF ADMISSION: 11/17/2017 DATE OF DISCHARGE: 11/23/2017 PRIMARY CARE PHYSICIAN: Eveline Garner D.O. DISCHARGE DISPOSITION: Home. PRIMARY DISCHARGE DIAGNOSES: Acute on chronic kidney failure, baseline chronic kidney disease stage 3, abnormal electrolytes of blood corrected, bandemia improving, dehydration corrected, sepsis resolv ed, small-bowel obstruction resolved. SECONDARY DISCHARGE DIAGNOSES: Parastomal hernia, obesity with body mass index 35, macrocytic anemia , hypertension, history of ileostomy, diabetes type 2, chronic obstructive pulmonary disease, chronic kidney disease stage 3, physical deconditioning. PRIMARY PROCEDURE/OPERATION: None. RADIOLOGICAL INVESTIGATION: Abdomen x-ray, small bowel x-ray. SIGNIFICANT LABORATORY DATA: Hemoglobin 9.1, creatinine 0.92, stool for infection negative. DISCHARGE MEDICATIONS: Patient will continue all her previous home medications. ProAir HFA 2 puffs q.6 hourly p.r.n., tramadol 50 mg q.4 hourly p.r.n., Coreg 12.5 mg p.o. b.i.d., Lantus 10 units subcu at bedtime, pravastatin 80 mg p.o. at bedtime, amlodipine 5 mg p.o. daily, Symbicort 2 puff inhalati on b.i.d., DuoNeb q.6 hourly p.r.n. CONTRAINDICATIONS: None. CODE STATUS: FULL CODE. INPATIENT CONSULTANTS: Dr. Garcia was following while in hospital. Dr. Brownlee was consulted for kristina mac. TEST RESULTS PENDING ON DISCHARGE: None. ALLERGIES: No known drug allergy. DISCHARGE PLAN: Post hospital, patient will follow up with primary care physician as well as Dr. Lloyd as instructed. HOSPITAL COURSE: A 72-year-old female who was admitted for abdominal pain. On admission, patient mitchell d CT of the abdomen and pelvis which showed findings suggestive of small-bowel obstruction. The brown ent was admitted to surgical floor. Dr. Garcia was consulted. The patient required NG tube with lo w intermittent suction. Patient was hydrated with IV fluid. Her renal function improved with fluid resuscitation. She had abnormal electrolytes that were also corrected with replacement. The patient had a small bowel x-ray which was negative for any obstruction. She had C. diff antigen positive an d toxin negative and while in hospital, we treated her with Flagyl. Dr. Brownlee was consulted for eduar souza, but he was not thinking that this patient needs to be treated with antibiotic therapy. We disc ontinued antibiotic therapy upon discharge. We prescribed vitamin B12 and folic acid for macrocytic anemia. The patient is doing clinically much better. She does not want to go for any kind of placem ent and that is why we are discharging her home today. Surgeon cleared her for discharge as well. The patient is seen and examined at bedside today. Please see my progress note from today for furthe r details. This patient is continuously high risk for recurrent admission.
[2017-11-23 16:13] VITALS: BP 146/76; TEMP 97.9
[2017-11-28] MEDS ORDERED: cloNIDine 0.1mg/24 Hour PATCH TD SCH (09:00)
== END 2017-11-23 18:28 | disposition home or self-care (01) | DRG 872 ==
LOC: ERS 23:30 → SURG B 11-17 01:10
PROVIDERS: ADMIT Hospitalist; ATTEND Hospitalist
DX: A41.9 Sepsis, unspecified organism (principal); N17.9 Acute kidney failure, unspecified; K43.3 Parastomal hernia with obstruction, without gangrene; I13.0 Hypertensive heart and chronic kidney disease with heart failure and stage 1 through stage 4 chronic kidney disease, or unspecified chronic kidney disease; I50.32 Chronic diastolic (congestive) heart failure; E87.1 Hypo-osmolality and hyponatremia; Z93.2 Ileostomy status; N18.3 Chronic kidney disease, stage 3 (moderate); E11.22 Type 2 diabetes mellitus with diabetic chronic kidney disease; D72.825 Bandemia; E86.0 Dehydration; E66.01 Morbid (severe) obesity due to excess calories; Z68.35 Body mass index [BMI] 35.0-35.9, adult; E78.5 Hyperlipidemia, unspecified; E87.5 Hyperkalemia
CPT/HCPCS: 36415; 36416; 74018; 74250; 80048; 80053; 80069; 83605; 83735; 84100; 85025; 85060; 87045; 87046; 87324; 87328; 87329; 87449; 87493; 87899; 94640; 94664; 99285; A4216; G8978-GP-CM; G8979-GP-CL; G8987-GO-CL; G8988-GO-CJ; J0360; J1644; J1956; J2270; J2405; J3475; J3480; J7050; J7620; S0028

== ENCOUNTER 2017-11-25 10:22 | Observation (INO) | payer MEDICARE, MEDICAID ==
[2017-11-25] MEDS ORDERED: ISOVUE-370 76%-LOCM 1 ML ONE (11:14)
[2017-11-25] MEDS ORDERED: Enoxaparin Sodium 100 MG/ML SYRINGE ONE (11:30)
--- NOTE | 2017-11-25 14:54 | CT ---
CT ANGIO CHEST PERFORMED WITH IV CONTRAST ENHANCEMENT WITH 3D RECONSTRUCTIONS: Date: 11/25/17 HISTORY: Syncopal episode. Patient found on floor. Elevated D-Dimer. FINDINGS: The lungs show some linear atelectasis in the lung bases. No pleural effusions. No pulmonary nodules are identified. The thoracic aorta appears normal in caliber. No significant mediastinal or hilar adenopathy. There i s only fair pulmonary artery opacification. Exam details also degraded by body habitus and arm positi on. Peripheral emboli are not excluded on the basis of this exam, but no central embolus is seen. Visualized liver parenchyma shows no focal findings. IMPRESSION: 1. Limited examination, but no CT evidence for pulmonary embolus. 2. Coronary artery calcifications incidentally noted. 3. Subsegmental atelectasis in the lung bases. POS: [facility]
[2017-11-25] MEDS ORDERED: Acetaminophen 325 MG TAB PO PRN (17:36)
[2017-11-25] MEDS ORDERED: Dextrose 50% Abboject 50 ML SYRINGE SLOW IVP PRN (17:44)
[2017-11-25] MEDS ORDERED: HumaLOG 300 UNITS/3 ML VIAL SC PRN (17:44)
[2017-11-25] MEDS ORDERED: Dextrose 5% in Water 1,000 ML IV PRN (17:44)
[2017-11-25] MEDS ORDERED: Sodium Chloride 0.45% 1,000 ML IV SCH (17:45)
[2017-11-25] MEDS ORDERED: PROVENTIL INHALER 6.7 G (200 INHALATIONS) INH PRN (17:47)
[2017-11-25 19:20] LABS: Troponin I Less than 0.010 ng/mL (< 0.028)
[2017-11-25] MEDS ORDERED: Ondansetron ODT 4 MG TAB SL PRN (20:05)
[2017-11-25] MEDS ORDERED: Ondansetron HCl/PF 4 MG/2 ML Vial IVP PRN (20:05)
[2017-11-25 20:22] VITALS: BMI 39.5
--- NOTE | 2017-11-25 22:15 | ULT ---
BILATERAL LOWER EXTREMITY VENOUS DOPPLER ULTRASOUND EVALUATION: 11/25/17 HISTORY: Elevated D-dimer. Syncope. Multiple longitudinal and transverse images of the right and left lower extremity venous system were obtained using a multihertz linear array transducer. Real time, color flow, and spectral waveform dop pler analysis was used to evaluate both lower extremity venous systems. Images demonstrate no evidence of acute or old clot seen in the right or left common femoral, superfi cial femoral, popliteal or post trifurcation veins. IMPRESSION: No evidence of right or left lower extremity deep venous thrombosis. POS: [facility]
--- NOTE | 2017-11-25 22:18 | ULT ---
CAROTID DOPPLER ULTRASOUND EVALUATION 11/25/17 HISTORY: Syncope. Multiple longitudinal and transverse images of the right carotid artery is obtained using a multihert z linear array transducer. Real time, color flow, and spectral waveform doppler analysis demonstrates some minimal atherosclerotic plaque seen in the distal most aspect of the right CCA with minimal kayla que also seen in the origin of the right ICA. This results in approximately 10 to 15% distal right CC A and proximal right ICA stenosis. Antegrade flow is seen in the right vertebral artery. The left carotid and vertebral arteries cannot be evaluated due to overlying bandages. IMPRESSION: No significant evidence of flow limiting lesions seen in the right common and internal carotid artery . The left carotid artery could not be imaged. POS: [facility]
[2017-11-25 23:01] LABS: Troponin I Less than 0.010 ng/mL (< 0.028)
--- NOTE | 2017-11-26 00:18 | HP ---
DATE OF ADMISSION: 11/25/2017 CHIEF COMPLAINT: Found down. HISTORY OF PRESENT ILLNESS: Patient is a 72-year-old female [facility] The patient had been admitted with what appeared to be a possible bowel obstructio n; however, there was ultimately no need for any intervention other than bowel rest and NG tube sucti oning. Patient had some leukocytosis with some bandemia. During that time, she had consultation wit Dr. Brownlee. She also had positive C. difficile antigen, but negative toxin, and this was felt to be more related to a colonization situation and no intervention was undertaken there either. She did h ave some significant electrolyte abnormalities at that time, which were addressed as well. The patie juan subsequently was discharged to home. She says she was doing okay got up about 2 or 3 o'clock in t he morning to go to the kitchen to get a drink of water and the next thing, she remembered she was in the [place] [facility]. She says her [id number] who lives with her, heard her fall and came to her aid and sent her to the emergency room there in [place]. She had no antecedent sym ptoms or premonition. She does not know how long, she was down on the floor, but she seems to indica te that it was not terribly long. In the [place] ER, the patient had a CT scan of the head whic h showed no acute intracranial processes. She had a chest x-ray with no acute findings. She was sub sequently transferred here and once the patient was leaving and had D-dimer returned that was elevate d at 6. On arrival here, the patient underwent a CT angiogram of the chest which showed no evidence of a pulmonary embolus. Currently, the patient reports that she feels fine. Basically feels like matt garcia is back at her baseline, feels like she could go home. REVIEW OF SYSTEMS: It is only notable for some pain in her right hip, which she says is chronic and was attributed to her arthritis in her hip during her last admission here. PAST MEDICAL HISTORY: Notable for chronic diastolic heart failure, type 2 diabetes, hypertension, dy slipidemia, morbid obesity, asthma, history of apparent recurrent GI bleeds resulting in the ileostom y in the right lower quadrant. PAST SURGICAL HISTORY: Ileostomy. FAMILY HISTORY: No significant premature cardiovascular disease or cancer. SOCIAL HISTORY: Patient lives with family. She is nonsmoker, nondrinker, nondrug user. She is a fo rmer smoker, quit over 10 years ago. She lives with several family members. She is FULL CODE. ALLERGIES: None. CURRENT MEDICATIONS: B12 of 1000 mcg p.o. daily, folic acid 1 mg daily, pravastatin 80 mg at bedtime , Coreg 12.5 b.i.d., albuterol 2 puffs q.6 hours p.r.n., tramadol 50 mg q.6 hours p.r.n., insulin gla rgine 10 units subcutaneously at bedtime, budesonide 2 puffs inhaled twice daily, amlodipine 5 mg aida day, and DuoNeb p.r.n. PHYSICAL EXAMINATION: VITAL SIGNS: BP is 106/65, pulse 84, temperature was 99.2, O2 sat 100% on 2 liters (the patient was diagnosed with hypoxia at the [place] facility, but there is no hypoxic measurements noted in e record from there). GENERAL APPEARANCE: Age appropriate female. She is morbidly obese. She is awake and alert, pleasan t, and cooperative. HEENT: PERRL. No OP lesions. She does have a dry oral mucosa. NECK: Supple and symmetric. CARDIOVASCULAR: Regular rate and rhythm without murmurs, gallops, or rubs. LUNGS: Clear to auscultation bilaterally with good chest wall expansion and air exchange. ABDOMEN: Soft, nontender, nondistended, positive bowel sounds. No masses, no organomegaly. SKIN: Warm and dry. LABORATORY DATA: White count 12.7, hemoglobin 7.0, platelets 331. D-dimer 6.07. Sodium 140, potass ium 3.5, chloride 108, CO2 of 26, BUN 7, creatinine is 1.20, glucose 152. BNP 25 with albumin 3.5. Urinalysis negative. Drug screen negative. IMPRESSION AND PLAN: 1. Syncopal episode, etiology is unclear. Patient was just discharged from the hospital appeared to be relatively stable at that time. We will keep her on telemetry in observation. We will continue serial troponins. We will obtain an echocardiogram and carotid Dopplers. I will check orthostatic v ital signs. We will give her some gentle hydration as it appears, she has a little dry from her oral mucosa, although her creatinine is at baseline. 2. Diabetes mellitus. Continue with her home medications. Sliding scale insulin. Diabetic diet. 3. Asthma. Continue with inhaler and nebulizer as needed. 4. Hypertension. Continue with her usual home medications with amlodipine and carvedilol. 5. Hyperlipidemia. Continue with her usual statin. 6. Patient had slightly low magnesium at the time of her last discharge, we will repeat that level n ow.
[2017-11-26 06:09] LABS: #Eosinphils 0.2 thou/uL (0.0-0.7); #Lymphocytes 1.9 thou/uL (1.20-3.40); #Monocytes 0.8 thou/uL (0.11-0.59); #Neutrophils 7.6 thou/uL (1.40-6.50); %Basophils 0.1 % (0.0-1.0); %Eosinophils 2.2 % (0.0-10.0); %Monocytes 7.8 % (0.0-10.0); %Neutrophils 71.9 % (42.0-75.0); Hemoglobin 8.3 g/dL (12.0-16.0); Mean Corpuscular HGB CONC 30.9 g/dL (32.0-36.0); Mean Corpuscular Hemoglobin 31.4 pg (27.0-31.0); Mean Platelet Volume 6.6 fL (7.4-10.4); Platelet Count 310 thou/uL (130-400); RBC Distribution Width 13.5 % (11.5-14.5); Red Blood Cell (RBC) Count 2.65 mill/uL (4.20-5.40); White Blood Cell (WBC) Count 10.5 thou/uL (4.8-10.8)
[2017-11-26 06:22] LABS: Anion Gap 11 mmol/L (10-20); BUN (Urea Nitrogen) 6 mg/dL (9.8-20.1); Calc. Creatinine Clearance 88 mL/min (70-130); Calcium 8.2 mg/dL (7.8-10.44); Carbon Dioxide 23 mmol/L (23-31); Chloride 109 mmol/L (98-107); Estimated GFR-MDRD 70; Glucose 91 mg/dL (83-110); Potassium 3.5 mmol/L (3.5-5.1); Sodium 139 mmol/L (136-145)
--- NOTE | 2017-11-26 11:00 | PDOC.PN ---
- Subjective Encounter Start Date: 11/26/17 Encounter Start Time: 07:20 -: old records requested/rev Patient seen and examined. No new complaints. No overnight events - Objective Resuscitation Status: Resuscitation Status FULL:Full Resuscitation MAR Reviewed: Yes Vital Signs & Weight: Vital Signs (12 hours) Temp Pulse Resp BP BP Pulse Ox 11/26/17 08:25 98.4 F 85 18 127/58 L 127/58 L 95 11/26/17 04:00 99 F 72 20 117/58 L 97 11/26/17 00:00 98.9 F 90 18 125/56 L 100 Weight Weight 230 lb 4.8 oz I&O: 11/25/17 11/26/17 11/27/17 06:59 06:59 06:59 Intake Total 915 Output Total 800 Balance 115 Result Diagrams: 11/26/17 05:57 11/26/17 05:57 Additional Labs: Accuchecks 11/26/17 11/26/17 10:35 05:52 POC Glucose 99 95 Radiology Reviewed by me: Yes EKG Reviewed by me: Yes (nsr) Phys Exam - Physical Examination Constitutional: NAD HEENT: PERRLA, moist MMs, sclera anicteric Neck: no JVD, supple Respiratory: no wheezing, no rales, no rhonchi Cardiovascular: RRR, no significant murmur, no rub Gastrointestinal: soft, non-tender, no distention, positive bowel sounds ilieostomy+ Musculoskeletal: no edema, pulses present Neurological: non-focal, normal sensation, moves all 4 limbs maxwell+ Psychiatric: normal affect, A&O x 3 Skin: no rash, normal turgor Dx/Plan (1) Syncope Code(s): R55 - SYNCOPE AND COLLAPSE Status: Acute (2) COPD (chronic obstructive pulmonary disease) Status: Chronic (3) DM type 2 (diabetes mellitus, type 2) Status: Chronic (4) H/O ileostomy Code(s): Z98.89 - OTHER SPECIFIED POSTPROCEDURAL STATES * DO NOT USE * Status : Chronic (5) HTN (hypertension) Code(s): I10 - ESSENTIAL (PRIMARY) HYPERTENSION Status: Chronic (6) Macrocytic anemia Code(s): D53.9 - NUTRITIONAL ANEMIA, UNSPECIFIED Status: Chronic (7) Obesity (BMI 30-39.9) Code(s): E66.9 - OBESITY, UNSPECIFIED Status: Chronic (8) Parastomal hernia Code(s): K43.5 - PARASTOMAL HERNIA WITHOUT OBSTRUCTION OR GANGRENE Status: Chronic - Plan cont current plan of care * check orthostatic vitals * all investigation normal * echo result pending * she does not want to go to snu or rehab * will dc later today. Review of Systems - Review of Systems Eyes: negative: Pain, Vision Change, Conjunctivae Inflammation, Eyelid Inflammation, Redness, Other ENT: negative: Ear Pain, Ear Discharge, Nose Pain, Nose Discharge, Nose Congestion, Mouth Pain, Mouth Swelling, Throat Pain, Throat Swelling, Other Respiratory: negative: Cough, Dry, Shortness of Breath, Hemoptysis, SOB with Excertion, Pleuritic Pain, Sputum, Wheezing Cardiovascular: negative: chest pain, palpitations, orthopnea, paroxysmal nocturnal dyspnea, edema, light headedness, other Gastrointestinal: negative: Nausea, Vomiting, Abdominal Pain, Diarrhea, Constipation, Melena, Hematochezia, Other Genitourinary: negative: Dysuria, Frequency, Incontinence, Hematuria, Retention , Other Musculoskeletal: negative: Neck Pain, Shoulder Pain, Arm Pain, Back Pain, Hand Pain, Leg Pain, Foot Pain, Other Skin: negative: Rash, Lesions, Alan, Bruising, Other - Medications/Allergies Allergies/Adverse Reactions: Allergies Allergy/AdvReac Type Severity Reaction Status Date / Time No Known Allergies Allergy Verified 11/25/17 20:29 Medications: Current Medications Acetaminophen (Tylenol) 650 mg PO Q4H PRN PRN Reason: Headache/Fever or Pain Albuterol Sulfate (Proventil Hfa) 2 puff INH Q4H PRN PRN Reason: SOB &/or Wheezing Albuterol/Ipratropium (Duoneb) 3 ml NEB [id number] PRN PRN Reason: SOB &/or Wheezing Dextrose/Water (Dextrose 50%) 25 gm SLOW IVP PRN PRN PRN Reason: Hypoglycemia Glucagon (Glucagon) 1 mg IM PRN PRN PRN Reason: Hypoglycemia Sodium Chloride (1/2 Normal Saline) 1,000 mls @ 75 mls/hr IV .[id number] NATASHA Last Admin: 11/25/17 20:43 Dose: 1,000 mls Dextrose/Water (D5w) 1,000 mls @ 0 mls/hr IV .Q0M PRN PRN Reason: Hypoglycemia Insulin Human Lispro (Humalog) 0 units SC .MILD SLIDING SCALE PRN PRN Reason: Mild Correctional Scale Sodium Chloride (Flush - Normal Saline) 10 ml IVF Q12HR NATASHA Last Admin: 11/26/17 08:58 Dose: 10 ml Sodium Chloride (Flush - Normal Saline) 10 ml IVF PRN PRN PRN Reason: Saline Flush
--- NOTE | 2017-11-26 13:01 | DIS ---
DATE OF ADMISSION: 11/25/2017 DATE OF DISCHARGE: 11/26/2017 PRIMARY CARE PHYSICIAN: Pascual Mosquera. DISCHARGE DISPOSITION: Home. PRIMARY DISCHARGE DIAGNOSIS: Fall/syncope ruled out cardiopulmonary etiology. SECONDARY DISCHARGE DIAGNOSES: Obesity with body mass index 39, macrocytic anemia, hypertension, his tory of ileostomy, diabetes type 2, chronic obstructive pulmonary disease, chronic physical deconditi oning. PRIMARY PROCEDURE/OPERATION: None. RADIOLOGICAL INVESTIGATION: CT angio negative for PE. Carotid Doppler negative for any stenosis. U ltrasound negative for any DVT. Echocardiography result is pending. SIGNIFICANT LABORATORY DATA: WBC 10.5, hemoglobin 8.3, platelet 310, MCV 102. Sodium 139, potassium 3.5, BUN 6, creatinine 0.95, calcium 8.2. Cardiac enzymes negative. Magnesium 1.6. DISCHARGE MEDICATIONS: Patient will continue all her previous home medications. ProAir HFA 2 puffs q.6 hourly p.r.n., tramadol 50 mg q.6 hourly p.r.n., Coreg 12.5 mg p.o. b.i.d., Lantus insulin 10 uni ts subcutaneously at bedtime, pravastatin 80 mg p.o. at bedtime, amlodipine 5 mg p.o. daily, Symbicor t 2 puff inhalation b.i.d., vitamin B12 1000 mcg p.o. daily, folic acid 1 mg p.o. daily, DuoNeb q.6 p .r.n. CONTRAINDICATIONS: None. CODE STATUS: FULL CODE. INPATIENT CONSULTANTS: None. ALLERGIES: No known drug allergy. DISCHARGE PLAN: Post hospital, patient is discharged home with home health. Subsequently, patient w ill follow up with primary care physician. HOSPITAL COURSE: A 72-year-old female who was recently admitted in our hospital for suspected small- bowel obstruction with acute kidney failure. At that time, patient was given IV fluid and her renal function improved. Her small-bowel obstruction was resolved and patient was discharged home. At jennifer t time, patient was physically weak and we offered her to go to long-term home/rehab but the pa carmel did not want to go to long-term home or rehab rather she wanted to go home. At this time , patient was readmitted after discharge in the next couple of days with episode of fall. It was not clear whether she had any syncopal episode and patient does not provide any classic history of synco pe as well. In the emergency room, she had CT angio which was negative for PE. Carotid Doppler was negative for any stenosis. An ultrasound was negative for any DVT. We kept this patient in hospital , hydrated her with IV fluid and we checked orthostatic vitals. We did echocardiography. Official r eport is pending, but does not suspect any structural heart problem. Based on examination, her monit or remained unremarkable. Does not suspect any arrhythmia. At this point, we are suspecting most cherie hernandes her fall may be related with orthostatic hypotension. Today, I had discussion with her about se nding her to long-term home versus rehabilitation, but again she does not want to go to any kin d of placement or any facility and she wants to go home. This patient is continuously high risk for readmission. Overall, patient is medically stable for discharge. At this time, patient is under observation statu s. Her ileostomy and her bowel are working perfectly fine.
[2017-11-26 16:58] VITALS: BP 123/56; TEMP 98.9
== END 2017-11-26 17:48 | disposition home or self-care (01) ==
LOC: ERS 10:22 → 2NO 20:14
PROVIDERS: ADMIT Internal Medicine; ATTEND Internal Medicine
DX: R55 Syncope and collapse (principal); E78.5 Hyperlipidemia, unspecified; E11.9 Type 2 diabetes mellitus without complications; I11.0 Hypertensive heart disease with heart failure; I50.32 Chronic diastolic (congestive) heart failure; J44.9 Chronic obstructive pulmonary disease, unspecified; D53.9 Nutritional anemia, unspecified; K43.5 Parastomal hernia without obstruction or gangrene; E66.01 Morbid (severe) obesity due to excess calories; Z68.39 Body mass index [BMI] 39.0-39.9, adult; Z79.4 Long term (current) use of insulin; Z79.51 Long term (current) use of inhaled steroids; Z79.899 Other long term (current) drug therapy; Z93.2 Ileostomy status
CPT/HCPCS: 71275; 80048; 82962 ×2; 83735; 84484; 85025; 93306; 93880; 93970; 96372; 97139; 97530; 99285; G0378 ×2; G8978; G8979; 36415; 36416; J1650

== ENCOUNTER 2018-09-09 19:48 | Observation (INO) | payer MEDICARE, MEDICAID ==
[2018-09-09] MEDS ORDERED: Acetaminophen 650 MG Suppository PR PRN (22:11)
[2018-09-09] MEDS ORDERED: Ondansetron ODT 4 MG TAB PO PRN (22:11)
[2018-09-09] MEDS ORDERED: Ondansetron PF 4 MG/2 ML Vial IVP PRN (22:11)
[2018-09-09] MEDS ORDERED: Acetaminophen 325 MG TAB PO PRN (22:11)
[2018-09-09 22:24] LABS: Base Excess-Venous -5.6 mmol/L (-2.0 to 3.0); Bicarbonate (HCO3v) 22.3 mmol/L (22.0-28.0); CO2 Tension (PvCO2) 53.5 mmHg (40.0-50.0); Calcium, Ionized 1.21 mmol/L (See Comments:); Chloride 112 mmol/L (98-107); Sodium 140 mmol/L (138-145); vO2 Saturation-calc 53.8 % (60.0-85.0)
[2018-09-10] MEDS ORDERED: Dextrose 5% in Water 1,000 ML IV PRN (02:25)
[2018-09-10] MEDS ORDERED: Dextrose 50% Abboject 50 ML SYRINGE SLOW IVP PRN (02:25)
[2018-09-10] MEDS ORDERED: HumaLOG 300 UNITS/3 ML VIAL SC PRN (02:25)
[2018-09-10 03:20] VITALS: BMI 39.8
[2018-09-10] MEDS: methylPREDNISolone Sod Succ 40 MG VIAL IVP SCH ×4 (05:30→17:57)
[2018-09-10 06:39] LABS: #Basophils 0.1 thou/uL (0.0-0.2); #Eosinphils 0.1 thou/uL (0.0-0.7); #Lymphocytes 1.8 thou/uL (1.20-3.40); #Monocytes 0.8 thou/uL (0.11-0.59); #Neutrophils 11.1 thou/uL (1.40-6.50); %Basophils 0.4 % (0.0-1.0); %Eosinophils 0.7 % (0.0-10.0); %Lymphocytes 12.9 % (21.0-51.0); %Monocytes 5.5 % (0.0-10.0); %Neutrophils 80.4 % (42.0-75.0); Hemoglobin 9.5 g/dL (12.0-16.0); Mean Corpuscular HGB CONC 30.9 g/dL (32.0-36.0); Mean Corpuscular Hemoglobin 31.5 pg (27.0-31.0); Mean Platelet Volume 6.5 fL (7.4-10.4); Platelet Count 283 thou/uL (130-400); RBC Distribution Width 13.5 % (11.5-14.5); White Blood Cell (WBC) Count 13.8 thou/uL (4.8-10.8)
[2018-09-10 06:59] LABS: Anion Gap 11 mmol/L (10-20); BUN (Urea Nitrogen) 24 mg/dL (9.8-20.1); Calc. Creatinine Clearance 64 mL/min (70-130); Calcium 8.7 mg/dL (7.8-10.44); Carbon Dioxide 19 mmol/L (23-31); Chloride 112 mmol/L (98-107); Estimated GFR-MDRD 48; Glucose 104 mg/dL (83-110); Potassium 4.4 mmol/L (3.5-5.1); Sodium 138 mmol/L (136-145)
[2018-09-10] MEDS: Enoxaparin Sodium 30 MG/0.3 ML SYRINGE SC SCH ×2 (09:53→09:57)
[2018-09-10] MEDS: Nystatin Powder 15 GM BOT TOP SCH ×2 (09:54→21:41)
[2018-09-10 12:16] LABS: Lactic Acid 0.8 mmol/L (0.5-2.2)
--- NOTE | 2018-09-10 18:51 | PRG ---
DATE OF SERVICE: 09/10/2018 SUBJECTIVE: Ms. Du is a very pleasant 72-year-old female with past medical history significant for COPD, type 2 diabetes mellitus, and morbid obesity, who presented to the hospital with complaints of generalized weakness, subjective fever, and productive cough x1 week. The patient has been admitted with acute COPD exacerbation. The patient does feel improved since her admission. She states that her breathing is easier, and her cough is improved. She denies any chest pain or difficulty breathing at this time. She denies any nausea or vomiting. OBJECTIVE: VITAL SIGNS: Blood pressure 141/69, pulse is 92, O2 saturation is 96% on room air, respirations 18, temperature 97.9. GENERAL: The patient is a morbidly obese, female, resting comfortably in bed, in no acute distress. HEENT: Head is atraumatic and normocephalic. Mucous membranes are moist. NECK: Supple. No lymphadenopathy. CV: S1 and S2. Regular rate and rhythm. LUNGS: Regular respiratory rate and pattern, diffuse rhonchi and occasional wheeze noted in all lung goodrich. ABDOMEN: Positive bowel sounds. Soft. Ileostomy in place. EXTREMITIES: Trace edema bilaterally. NEUROLOGIC: Cranial nerves 2 through 12 are grossly intact. The patient is nonfocal. LABORATORY DATA: White blood cell count 13.8, hemoglobin 9.5, hematocrit 30.6. Sodium 138, potassium 4.4, CO2 of 19, creatinine 1.32. Lactic acid is negative. Procalcitonin is negative. ASSESSMENT: 1. Acute chronic obstructive pulmonary disease exacerbation/acute bronchitis, lactic acid and procalcitonin are negative. 2. Hyperkalemia on arrival, resolved. 3. Type 2 diabetes mellitus. 4. Morbid obesity. 5. History of multiple gastrointestinal bleeding resulting in ileostomy. 6. Chronic diastolic heart failure, euvolemic. 7. Chronic kidney disease, [id number] at presentation, improved. Creatinine appears back to baseline at this time. 8. Chronic macrocytic anemia. PLAN: The patient needs continued IV antibiotics and pulmonary toilet to include breathing treatments along with steroids. The patient did meet SIRS criteria at presentation. We will also consult Physical Therapy. Expect that if the patient continues to improve, she may be discharged back home tomorrow. Job ID: [id number]
[2018-09-11] MEDS: methylPREDNISolone Sod Succ 40 MG VIAL IVP SCH ×3 (00:09→11:40)
[2018-09-11 06:30] LABS: #Lymphocytes 0.8 thou/uL (1.20-3.40); #Monocytes 0.5 thou/uL (0.11-0.59); #Neutrophils 11.6 thou/uL (1.40-6.50); %Basophils 0.1 % (0.0-1.0); %Lymphocytes 6.3 % (21.0-51.0); %Monocytes 3.7 % (0.0-10.0); %Neutrophils 89.9 % (42.0-75.0); Hemoglobin 9.4 g/dL (12.0-16.0); Mean Corpuscular HGB CONC 30.3 g/dL (32.0-36.0); Mean Corpuscular Hemoglobin 30.4 pg (27.0-31.0); Mean Platelet Volume 6.7 fL (7.4-10.4); Platelet Count 295 thou/uL (130-400); RBC Distribution Width 13.5 % (11.5-14.5); White Blood Cell (WBC) Count 12.9 thou/uL (4.8-10.8)
[2018-09-11 07:06] LABS: Anion Gap 13 mmol/L (10-20); BUN (Urea Nitrogen) 29 mg/dL (9.8-20.1); Calc. Creatinine Clearance 58 mL/min (70-130); Calcium 9.1 mg/dL (7.8-10.44); Carbon Dioxide 18 mmol/L (23-31); Chloride 110 mmol/L (98-107); Estimated GFR-MDRD 43; Glucose 181 mg/dL (83-110); Potassium 4.6 mmol/L (3.5-5.1); Sodium 136 mmol/L (136-145)
[2018-09-11] MEDS: Nystatin Powder 15 GM BOT TOP SCH (09:33)
[2018-09-11] MEDS: Enoxaparin Sodium 30 MG/0.3 ML SYRINGE SC SCH (09:33)
[2018-09-11 15:47] VITALS: BP 143/67; TEMP 97.4
--- NOTE | 2018-09-11 20:47 | DIS ---
DATE OF ADMISSION: 09/09/2018 DATE OF DISCHARGE: 09/11/2018 CHIEF COMPLAINT ON ADMISSION: intermittent fever, cough, weakness. DISCHARGE DIAGNOSES: 1. Intermittent fever, cough, weakness secondary to acute chronic obstructive pulmonary disease exacerbation/acute bronchitis. Lactic acid and prolactin negative, presenting symptoms resolved. 2. Hyperkalemia on arrival, resolved. 3. Type 2 diabetes mellitus. 4. Morbid obesity. 5. History of multiple GI bleeding resulting in ileostomy. 6. Chronic diastolic heart failure, euvolemic. 7. Chronic kidney disease, acute on chronic at presentation. Resolved. Creatinine at baseline. 8. Chronic macrocytic anemia. BRIEF HOSPITAL COURSE: The patient is a very pleasant, obese female with past medical history significant for COPD, diabetes, and chronic kidney disease, who presented to the hospital with complaints of generalized weakness. The patient had had an intermittent cough off and on for the past several weeks that she stated was productive of white sputum. She never took her temperature, but did feel as if she was running a fever. She did also have some generalized weakness. Her power of director of operations support and caregiver noticed her symptoms and advised her to go to the emergency room for further workup and treatment. She was originally seen in [place] and transferred to our facility for higher level of care. On arrival to the [place] ER, her potassium was 5.5. Repeat labs at our facility showed a potassium 4.4 and creatinine of 1.32. She was treated for her COPD exacerbation with IV steroids, levofloxacin, and breathing treatments. Her symptoms did vastly improve, and at the time of her discharge, the patient states that she feels much improved. She still has a mild cough, but reports that she does frequently have a cough from her COPD. The patient denies any nausea or vomiting. Her appetite is good. The patient states that she feels back to her baseline. The patient's creatinine is 1.46 today and per review, this seems to be about average for her. DISCHARGE DISPOSITION: Home. DISCHARGE INSTRUCTIONS AND FOLLOWUP: The patient will be discharged home on Omnicef 300 mg p.o. b.i.d. for the next 5 days to complete her course. She will also be discharged on a Medrol Dosepak. She will continue her breathing treatments at home. She will follow up with her primary care physician. She will continue her antibiotics. She will continue with healthy eating and I have encouraged her that weight loss will help with her overall functioning. The patient will be discharged home in good condition today. Job ID: [id number] MTDD
[2018-09-12] MEDS ORDERED: predniSONE 20 MG TAB PO SCH (08:00)
--- NOTE | 2018-09-12 08:17 | HP ---
PRIMARY CARE DOCTOR: Eveline Garner DO. CODE STATUS: Full code. TIME OF EVALUATION: . CHIEF COMPLAINT: Generalized weakness and wheezing. HISTORY OF PRESENT ILLNESS: A 72-year-old female patient with past medical history of COPD, congestive heart failure, diabetes type 2, hyperlipidemia, hypertension, asthma, morbid obesity, came to the hospital after having severe generalized weakness; symptoms started a couple of hours ago with no clear triggers, no alleviating factors. The patient also have significant wheezing that was audible even without auscultation. REVIEW OF SYSTEMS: CONSTITUTIONAL: No fever or chills. The patient with generalized weakness. RESPIRATORY: The patient has no cough, sputum production, or shortness of breath. The patient has wheezing. CARDIOVASCULAR: No chest pain or palpitation. GASTROINTESTINAL: No nausea, no vomiting, diarrhea, or abdominal pain. GLOVE MACHINE OPERATOR: No dizziness, headache, or feeling lightheaded. GENITOURINARY: No burning on urination. EXTREMITIES: Bilateral leg swelling. All other systems were reviewed and negative except for the findings mentioned above. PAST MEDICAL HISTORY: As mentioned in the HPI. PAST SURGICAL HISTORY: The patient has a history of colostomy and ileostomy with revision. PSYCHIATRIC HISTORY: No previous psych history. SOCIAL HISTORY: The patient lives with family at home. The patient denies alcohol use. No drug use. No smoking history. ALLERGIES: NO KNOWN DRUG ALLERGIES REPORTED. MEDICATIONS: 1. Valsartan. 2. Tramadol. 3. Coreg. 4. Gabapentin. 5. Amlodipine. 6. Pravastatin. 7. Furosemide. 8. Albuterol sulfate. 9. DuoNeb. 10. Symbicort. PHYSICAL EXAMINATION: VITAL SIGNS: On presentation, blood pressure 146/56, heart rate 83, respiratory rate was 17, temperature 97.9, pain was 6/10, oxygen saturation was 98% on room air. GENERAL APPEARANCE: The patient is alert, oriented, in no acute distress. HEENT: Eyes, normal conjunctivae. Moist oral mucosa. Anicteric. No JVD. RESPIRATORY: The patient has bilateral air entry, decreased. The patient has bilateral wheezing. Symmetric expansion. CARDIOVASCULAR: Normal rate, regular rhythm. No murmurs. No gallops. No edema. ABDOMEN: Soft. Normal bowel sounds. MUSCULOSKELETAL: Baseline range of motion and strength. SKIN: Warm, intact. No pallor. No rash. No redness. Capillary refill seems to be intact. NEUROLOGIC: No evidence of any new focal weakness. Cranial nerves seems to be intact. PSYCHIATRIC: The patient is in good mood. No anxiety. Optimal judgment. IMAGING: EKG was reviewed. The patient has normal sinus rhythm at the rate of 92, MA 194, QRS 90, QT corrected 415. Chest x-ray was reviewed. The patient has no evidence of acute cardiopulmonary disease. LABORATORY DATA: Reviewed. The patient has VBG with pH of 7.22, pCO2 of 53. Hematology, white count was 15, hemoglobin was 9.6, MCV , and platelet count 280. Chemistry; the patient has sodium 138; potassium 5, on initial presentation was 5.5; chloride 112, carbon dioxide 19, anion gap 13, BUN 31, and creatinine 1.71; the previous creatinine was 1.42 in 2018. Glucose 119. LFTs were normal. Urine was done and was negative. ASSESSMENT AND PLAN: The patient will be placed in the hospital with the following medical problems; 1. Generalized weakness, likely secondary to underlying chronic deconditioning from chronic obstructive pulmonary disease and also hyperkalemia. We will treat the underlying condition. 2. Hyperkalemia. The patient was potassium 5.5. After treatment, the potassium has come back to normal. We will monitor electrolytes in the morning. We will correct as needed. 3. Chronic obstructive pulmonary disease exacerbation. The patient has bilateral wheezing without shortness of breath. Her pH is after correction from VBG, pCO2 seems to be elevated, but no accurate from the VBG. The patient's saturation is good. We will continue with the current treatment. We will not give excessive oxygen to prevent decompensation from CO2 and CO2 retention. We will continue nebs, antibiotics, and steroids. 4. Acute respiratory acidosis, likely secondary to chronic obstructive pulmonary disease. We will treat the underlying condition. 5. Leukocytosis, could be related to underlying chronic obstructive pulmonary disease exacerbation. Treatment as above. 6. Chronic macrocytic anemia. No need for any acute intervention at this point, can be followed as an outpatient. 7. Deep venous thrombosis prophylaxis. 8. Diabetes type 2, seems to be controlled, reconcile home medications, place the patient on sliding scale. 9. Hyperlipidemia. Low-cholesterol diet is advised. 10. Obesity. Advised to lose weight. Job ID: [id number]
--- NOTE | 2018-09-17 17:01 | EKG ---
Test Reason : Blood Pressure : / mmHG Vent. Rate : 092 BPM Atrial Rate : 092 BPM P-R Int : 194 ms QRS Dur : 090 ms QT Int : 336 ms P-R-T Axes : 063 003 070 degrees QTc Int : 415 ms Normal sinus rhythm Normal ECG Confirmed by PAULINE CONTRERAS, MERLY ([id number]), editorial assistant ROSE DAVENPORT ([id number]) on 09/17/2018 5:00:27 PM Referred By: Confirmed By:MERLY CARPENTER MD
== END 2018-09-11 17:47 | disposition home or self-care (01) ==
LOC: ERS 19:48 → 2NO 20:11
PROVIDERS: ADMIT Hospitalist; ATTEND Hospitalist
DX: J20.9 Acute bronchitis, unspecified (principal); J44.0 Chronic obstructive pulmonary disease with (acute) lower respiratory infection; J44.1 Chronic obstructive pulmonary disease with (acute) exacerbation; E87.5 Hyperkalemia; E11.10 Type 2 diabetes mellitus with ketoacidosis without coma; I13.0 Hypertensive heart and chronic kidney disease with heart failure and stage 1 through stage 4 chronic kidney disease, or unspecified chronic kidney disease; E11.22 Type 2 diabetes mellitus with diabetic chronic kidney disease; N18.9 Chronic kidney disease, unspecified; I50.32 Chronic diastolic (congestive) heart failure; N17.9 Acute kidney failure, unspecified; D72.829 Elevated white blood cell count, unspecified; D53.9 Nutritional anemia, unspecified; E78.5 Hyperlipidemia, unspecified; E66.01 Morbid (severe) obesity due to excess calories; Z68.41 Body mass index [BMI] 40.0-44.9, adult; Z79.899 Other long term (current) drug therapy; Z93.2 Ileostomy status; Z98.890 Other specified postprocedural states
CPT/HCPCS: 80048 ×2; 82330; 82435; 82803; 82962 ×2; 83605; 84132; 84145; 84295; 85014; 85025 ×2; 93005; 94640 ×3; 96372 ×2; 96374; 96375; 96376 ×2; 97139; 99285; G0378 ×2; 36415; 36416; J1650; J1956; J2920; J7620

== ENCOUNTER 2018-09-30 11:40 | Emergency (ER) | payer MEDICARE, MEDICAID ==
[2018-09-30 12:31] LABS: #Eosinphils 0.1 thou/uL (0.0-0.7); #Monocytes 0.5 thou/uL (0.11-0.59); #Neutrophils 4.2 thou/uL (1.40-6.50); %Basophils 0.5 % (0.0-1.0); %Eosinophils 2.3 % (0.0-10.0); %Monocytes 8.1 % (0.0-10.0); %Neutrophils 72.1 % (42.0-75.0); Hemoglobin 10.3 g/dL (12.0-16.0); Mean Corpuscular HGB CONC 32.4 g/dL (32.0-36.0); Mean Corpuscular Hemoglobin 32.2 pg (27.0-31.0); Mean Corpuscular Volume 99.6 fL (78.0-98.0); Mean Platelet Volume 6.9 fL (7.4-10.4); Platelet Count 243 thou/uL (130-400); RBC Distribution Width 14.1 % (11.5-14.5); Red Blood Cell (RBC) Count 3.19 mill/uL (4.20-5.40); White Blood Cell (WBC) Count 5.8 thou/uL (4.8-10.8)
[2018-09-30 12:55] LABS: ALT (SGPT) Less than 7 U/L (8-55); AST (SGOT) 7 U/L (5-34); Albumin 3.5 g/dL (3.4-4.8); Alkaline Phosphatase 64 U/L (40-150); Anion Gap 11 mmol/L (10-20); BUN (Urea Nitrogen) 20 mg/dL (9.8-20.1); Bilirubin, Total 0.6 mg/dL (0.2-1.2); Calc. Creatinine Clearance 0 mL/min (70-130); Calcium 9.1 mg/dL (7.8-10.44); Carbon Dioxide 21 mmol/L (23-31); Chloride 110 mmol/L (98-107); Estimated GFR-MDRD 47; Globulin 3.5 g/dL (2.4-3.5); Glucose 100 mg/dL (83-110); Potassium 4.8 mmol/L (3.5-5.1); Sodium 137 mmol/L (136-145)
== END 2018-09-30 15:30 | disposition home or self-care (01) ==
LOC: ERS 11:40
DX: R19.7 Diarrhea, unspecified (principal); E11.9 Type 2 diabetes mellitus without complications; E78.5 Hyperlipidemia, unspecified; I11.0 Hypertensive heart disease with heart failure; I50.9 Heart failure, unspecified; J44.9 Chronic obstructive pulmonary disease, unspecified; E66.9 Obesity, unspecified; Z87.891 Personal history of nicotine dependence
CPT/HCPCS: 36415; 80053; 82274; 83630; 85025; 87045; 87046; 87324; 87328; 87329; 87449; 87899; 99283

== ENCOUNTER 2019-04-03 16:32 | Inpatient (IN) | payer MEDICARE, MEDICAID ==
[2019-04-03 17:44] LABS: #Eosinphils 0.1 thou/uL (0.0-0.7); #Monocytes 0.1 thou/uL (0.11-0.59); #Neutrophils 8.4 thou/uL (1.40-6.50); %Basophils 0.1 % (0.0-1.0); %Eosinophils 0.9 % (0.0-10.0); %Lymphocytes 10.1 % (21.0-51.0); %Monocytes 1.4 % (0.0-10.0); %Neutrophils 87.6 % (42.0-75.0); Hemoglobin 11.1 g/dL (12.0-16.0); Mean Corpuscular HGB CONC 30.8 g/dL (32.0-36.0); Mean Platelet Volume 7.5 fL (7.4-10.4); Platelet Count 251 thou/uL (130-400); RBC Distribution Width 13.4 % (11.5-14.5); Red Blood Cell (RBC) Count 3.58 mill/uL (4.20-5.40); White Blood Cell (WBC) Count 9.6 thou/uL (4.8-10.8)
[2019-04-03 18:13] LABS: Anion Gap 14 mmol/L (10-20); BUN (Urea Nitrogen) 74 mg/dL (9.8-20.1); Calc. Creatinine Clearance 0 mL/min (70-130); Calcium 9.3 mg/dL (7.8-10.44); Carbon Dioxide 12 mmol/L (23-31); Chloride 114 mmol/L (98-107); Estimated GFR-MDRD 15; Glucose 116 mg/dL (83-110); Sodium 134 mmol/L (136-145)
[2019-04-03 19:30] LABS: Bacteria/HPF 4+ HPF (None Seen); Bilirubin Negative (Negative); Blood, Urine 2+ (Negative); Clarity Extra Turbid (Clear); Glucose, Urine (Dipstick) Normal (Negative); Leukocyte 500 Leu/uL (Negative); Nitrite Negative (Negative); Protein, Urine (Dipstick) 50 mg/dL (Neg-Trace); RBC/HPF 21-50 HPF (0-3); Squamous Epithelial None Seen HPF (0-3); Urobilinogen Normal mg/dL (Less than 2); WBC/HPF Greater than 50 HPF (0-3)
[2019-04-03] MEDS ORDERED: Sodium Bicarbonate 150 MEQ in Dextrose 5% in Water 1,000 ML IV SCH (21:30)
[2019-04-03] MEDS: Nystatin Powder 15 GM BOT TOP SCH (22:06)
[2019-04-03] MEDS ORDERED: Senokot S 8.6-50 MG TAB PO PRN (22:20)
[2019-04-03] MEDS ORDERED: Calcium Carbonate 500 MG ChewTAB PO PRN (22:20)
[2019-04-03] MEDS ORDERED: Ondansetron PF 4 MG/2 ML Vial IVP PRN (22:20)
[2019-04-03] MEDS ORDERED: Acetaminophen 650 MG Suppository PR PRN (22:20)
[2019-04-03] MEDS ORDERED: Acetaminophen 325 MG TAB PO PRN (22:20)
[2019-04-03] MEDS ORDERED: Ondansetron ODT 4 MG TAB PO PRN (22:20)
--- NOTE | 2019-04-03 23:22 | HP ---
PRIMARY CARE PHYSICIAN: Dr. Eveline Garner. CHIEF COMPLAINT: Shortness of breath. The patient is a transfer from [place] [facility]. HISTORY OF PRESENT ILLNESS: The patient is a 73-year-old female with COPD; diabetes mellitus, type 2; morbid obesity; and CKD, presented to the emergency room at [place] with above complaints. Please note that patient is a poor historian, not much information is available from the patient. No family is at the bedside. The patient presented to the emergency room with shortness of breath along with wheezing that has been going on for last 48 hours or so. She also had subjective fever, however, denied recording the temperature. The shortness of breath was worse on exertion. She also had cough with small amount of phlegm. She denies any sick contacts or travel. The shortness of breath was worse on lying down flat as well. She denies any chest pain, palpitations, lightheadedness, dizziness, or syncope. No recent immobilization or travel reported. In the emergency room at [place], her initial vital signs showed temperature 97.7 with respirations of 22, pulse rate of 111 with a blood pressure of 100/53 with O2 saturation of 94% on room air. She received ceftriaxone, azithromycin, IV fluids, DuoNebs, and Solu-Medrol and was transferred to this facility. Per ER report, she had diffuse wheezing. A chest x-ray showed possible left lower lobe infiltrate. She was found to have acute kidney injury with a creatinine of 3.86 and a BUN of 68 with potassium of 6.1. Baseline creatinine is 1.35 approximately 6 months ago. PAST MEDICAL HISTORY: 1. COPD. 2. Diabetes mellitus, type 2. 3. Morbid obesity. 4. Chronic diastolic heart failure. 5. Chronic kidney disease, stage 3. 6. Chronic anemia. 7. Hyperlipidemia. 8. History of ileostomy. PAST SURGICAL HISTORY: Ileostomy. ALLERGIES: NO KNOWN DRUG ALLERGIES. CURRENT HOME MEDICATIONS: The patient is unable to recall any of her home medications. We will try to obtain from her family. SOCIAL HISTORY: The patient currently lives at home with her sisters. She is a former smoker. She ambulates with the help of a walker. Her sisters are probably the decision makers. She is full code. FAMILY HISTORY: Negative for premature coronary artery disease. REVIEW OF SYSTEMS: All other review of systems were reviewed and were found negative. PHYSICAL EXAMINATION: VITAL SIGNS: As discussed above. GENERAL: A 73-year-old female in mild respiratory distress, able to complete short phrases. No audible wheezing. HEENT: Head, atraumatic and normocephalic. Sclerae anicteric. Dry mucous membranes. No oral lesion. NECK: Supple. No JVD. No carotid bruit. LUNGS: Showed expiratory wheezing with mild accessory muscle use. There were rhonchi as well. There was some bibasilar rales, especially at the left base. HEART: S1 and S2 present. Regular. Tachycardic. No rubs or gallops. ABDOMEN: Soft, nontender. Ileostomy with dark greenish stool. Bowel sounds present. No rebound or guarding. EXTREMITIES: No edema or calf tenderness. NEUROLOGY: Grossly nonfocal. Moves all 4 extremities. PSYCHIATRY: Alert, awake, and oriented x3. SKIN: Warm and dry. There were changes consistent with tinea infection in the body folds. LYMPH NODES: No palpable lymph nodes in the neck. LABORATORY FINDINGS: WBC 9.3 with hemoglobin 9.9, hematocrit 34.6, and platelet count of 268. Chemistry showed sodium 138, potassium 6.1, chloride 115, bicarb 14, BUN of 68, and creatinine 3.86. LFTs in normal range. Troponin was negative. BNP was 30.4. Lactic acid was 0.9. Urinalysis showed greater than 50 wbc's with 4+ bacteria. Chest x-ray by my review showed possible left lower lobe infiltrate. EKG by my review showed sinus tachycardia with nonspecific ST-T wave changes. IMPRESSION: 1. Left lower lobe pneumonia, questionable gram-negative with chronic obstructive pulmonary disease exacerbation. Rule out aspiration. 2. Acute kidney injury on chronic kidney disease, stage 3 with hyperkalemia, probably secondary to pneumonia along with her medications. Last admission, she was on Lasix along with valsartan. 3. Urinary tract infection. 4. Chronic diastolic heart failure, appears to be compensated. 5. Diabetes mellitus, type 2. 6. Hypertension. 7. Hyperlipidemia. 8. Morbid obesity. 9. Physical deconditioning. 10. Metabolic acidosis secondary to renal failure. 11. Hyponatremia. PLAN: 1. The patient is currently admitted to telemetry unit. We will start her on sodium bicarbonate drip for hyperkalemia. We will recheck labs in a.m. and adjust the fluid accordingly. Urine cultures have been sent. We will continue ceftriaxone. Consult Speech Therapy to rule out aspiration pneumonia. Verify home medications. Continue nebulizer treatments. Resume beta-blockers at low doses. 2. We will also obtain renal ultrasound. 3. The patient understands the above plan of care. Job ID: [id number]
[2019-04-03 23:28] VITALS: BMI 39.3
[2019-04-04] MEDS: Sodium Bicarbonate 150 MEQ in Dextrose 5% in Water 1,000 ML IV SCH ×2 (00:39→10:23)
[2019-04-04 05:51] LABS: #Eosinphils 0.1 thou/uL (0.0-0.7); #Monocytes 0.1 thou/uL (0.11-0.59); #Neutrophils 6.5 thou/uL (1.40-6.50); %Basophils 0.1 % (0.0-1.0); %Eosinophils 1.4 % (0.0-10.0); %Monocytes 1.6 % (0.0-10.0); %Neutrophils 83.9 % (42.0-75.0); Hemoglobin 9.8 g/dL (12.0-16.0); Mean Corpuscular HGB CONC 30.4 g/dL (32.0-36.0); Mean Corpuscular Hemoglobin 29.9 pg (27.0-31.0); Mean Corpuscular Volume 98.3 fL (78.0-98.0); Mean Platelet Volume 7.2 fL (7.4-10.4); Platelet Count 255 thou/uL (130-400); RBC Distribution Width 13.1 % (11.5-14.5); Red Blood Cell (RBC) Count 3.28 mill/uL (4.20-5.40); White Blood Cell (WBC) Count 7.7 thou/uL (4.8-10.8)
[2019-04-04 06:16] LABS: ALT (SGPT) Less than 7 U/L (8-55); AST (SGOT) 6 U/L (5-34); Albumin 3.3 g/dL (3.4-4.8); Alkaline Phosphatase 64 U/L (40-110); Anion Gap 13 mmol/L (10-20); BUN (Urea Nitrogen) 63 mg/dL (9.8-20.1); Bilirubin, Total 0.2 mg/dL (0.2-1.2); Calc. Creatinine Clearance 31 mL/min (70-130); Calcium 8.6 mg/dL (7.8-10.44); Carbon Dioxide 16 mmol/L (23-31); Chloride 116 mmol/L (98-107); Estimated GFR-MDRD 22; Globulin 3.8 g/dL (2.4-3.5); Glucose 146 mg/dL (83-110); Magnesium 2.2 mg/dL (1.6-2.6); Potassium 5.6 mmol/L (3.5-5.1); Protein, Total 7.1 g/dL (6.0-8.3); Sodium 139 mmol/L (136-145)
[2019-04-04] MEDS ORDERED: traMADol HCl 50 MG TAB PO PRN (07:41)
[2019-04-04] MEDS ORDERED: PROVENTIL INHALER 6.7 G (200 INHALATIONS) INH PRN (07:41)
--- NOTE | 2019-04-04 08:29 | CT ---
CT OF THE ABDOMEN AND PELVIS WITHOUT IV CONTRAST INDICATION: Acute renal injury COMPARISON: CT the abdomen and pelvis with contrast dated November 16, 2017 FINDINGS: This examination is limited for the evaluation of solid organs and vascular structures due to the lac k of intravenous contrast. ABDOMEN: Lung bases: There is bilateral lower lobe subsegmental atelectasis Liver: No focal lesion. Gallbladder: Surgically absent Pancreas: Normal. Adrenal glands: Normal. Spleen: Normal. Kidneys and ureters: There is a stable 2.5 cm mid left renal cyst. No hydronephrosis is evident. No r enal or ureteral calculus is identified. There is perinephric stranding seen bilaterally which appears similar to the comparison examination. Vasculature: There are moderate vascular calcifications seen involving the visualized vasculature. Lymph nodes:No lymphadenopathy. Free fluid in abdomen:No free fluid is evident. PELVIS: Small and large bowel: There is a right lower quadrant colostomy with a parastomal hernia containing loops of colon and small bowel without evidence of strangulation. The unopacified small and large bowel are of normal caliber. There is a Linton's pouch seen within the lower pelvis. Appendix:Not definitely demonstrated Bladder: Normal. Rectal and perirectal soft tissues:Normal. Reproductive structures: Stable calcified fibroid within the right posterior lateral aspect of the ut erine body. Free fluid in pelvis: No free fluid is evident. Lymphadenopathy pelvis: No lymphadenopathy is evident. Osseous structures: There is diffuse osteopenia. No acute fracture or subluxation demonstrated. Ther e is scattered degenerative and osteoarthritic changes. Soft tissues:Normal. IMPRESSION: 1. Persistent right lower quadrant parastomal hernia containing the patient's right lower quadrant en d colostomy, loops of colon and unobstructed small bowel. 2. Stable left renal cyst. No hydronephrosis demonstrated. 3. Bilateral lower lobe subsegmental atelectasis. 4. Stable fibroid uterus
[2019-04-04] MEDS ORDERED: Dextrose 50% Abboject 50 ML SYRINGE SLOW IVP SCH (08:48)
[2019-04-04] MEDS ORDERED: Insulin Regular 300 UNITS/3 ML VIAL IVP SCH (09:00)
[2019-04-04] MEDS ORDERED: FLU VACC TS2019-20(65YR UP)/PF 180 MCG/0.5 ML SYRINGE IM ONE (09:00)
[2019-04-04] MEDS ORDERED: Dextrose 50 % In Water 50 ML SYRINGE ONE (09:07)
[2019-04-04] MEDS: guaiFENesin ER 600 MG TAB PO SCH ×2 (09:21→20:30)
[2019-04-04] MEDS: Doxycycline 100 MG CAP PO SCH ×2 (09:21→20:29)
[2019-04-04] MEDS: Amlodipine 5 MG TAB PO SCH (09:21)
[2019-04-04] MEDS: Carvedilol 6.25 MG TAB PO SCH ×2 (09:21→20:29)
[2019-04-04] MEDS: cefTRIAXone\\ROCEPHIN 2 GM in Sodium Chloride 0.9% 100 ML IVPB SCH (09:21)
[2019-04-04] MEDS: Saccharomyces boulardii 250 MG CAP PO SCH (09:21)
[2019-04-04] MEDS: Heparin 5,000 UNITS/ML VIAL SC SCH ×3 (09:22→20:30)
[2019-04-04] MEDS ORDERED: Albuterol Sulfate 2.5 mg/3 ml Neb NEB SCH (09:30)
[2019-04-04] MEDS: Nystatin Powder 15 GM BOT TOP SCH ×2 (09:30→20:28)
[2019-04-04] MEDS ORDERED: Albuterol Sulfate 2.5 mg/0.5 ml Neb NEB SCH (11:15)
[2019-04-04 13:43] LABS: Anion Gap 15 mmol/L (10-20); BUN (Urea Nitrogen) 57 mg/dL (9.8-20.1); Calc. Creatinine Clearance 38 mL/min (70-130); Calcium 8.8 mg/dL (7.8-10.44); Carbon Dioxide 14 mmol/L (23-31); Chloride 116 mmol/L (98-107); Estimated GFR-MDRD 27; Glucose 135 mg/dL (83-110); Potassium 5.1 mmol/L (3.5-5.1); Sodium 140 mmol/L (136-145)
[2019-04-04] MEDS: Sodium Chloride 0.9% 1,000 ML IV SCH (15:06)
--- NOTE | 2019-04-04 18:20 | PDOC.HOSPP ---
- Subjective Encounter Date: 04/04/19 Encounter Time: 08:00 Subjective: Pt seen for followup re: acute on chronic renal failure. States she feels better, no complaints today. - Objective Vital Signs & Weight: Vital Signs (12 hours) Temp Pulse Resp BP BP BP Pulse Ox 04/04/19 15:19 98.3 F 88 18 117/57 L 98 04/04/19 14:18 90 14 04/04/19 11:13 98.2 F 90 16 118/54 L 98 04/04/19 10:46 90 14 04/04/19 09:41 161/67 H 139/65 04/04/19 08:00 98.1 F 102 H 16 132/63 95 04/04/19 06:44 100 14 Pulse Ox 04/04/19 15:19 04/04/19 14:18 04/04/19 11:13 04/04/19 10:46 04/04/19 09:41 98 04/04/19 08:00 04/04/19 06:44 Weight Weight 229 lb I&O: 04/03/19 04/04/19 04/05/19 06:59 06:59 06:59 Intake Total 883 Output Total 425 Balance 458 Result Diagrams: 04/04/19 04:38 04/04/19 13:11 Additional Labs: Accuchecks 04/04/19 04/04/19 04/04/19 16:34 10:25 06:00 POC Glucose 108 158 H 156 H Labs and MARs reviewed by me EKG Reviewed by me: Yes (Tele: NSR) Hospitalist ROS - Review of Systems Constitutional: denies: fever, chills, sweats, weakness, malaise Respiratory: denies: cough, shortness of breath, SOB with excertion, pleuritic pain, wheezing Cardiovascular: denies: chest pain, palpitations, orthopnea, paroxysmal noc. dyspnea, edema, light headedness Gastrointestinal: denies: nausea, vomiting, abdominal pain, diarrhea, constipation, melena, hematochezia Genitourinary: denies: dysuria, frequency, incontinence, hematuria, retention Skin: denies: rash, lesions, ladonna, bruising - Medication Medications: Active Medications Generic Name Dose Route Start Last Admin Trade Name Freq PRN Reason Stop Dose Admin Albuterol/Ipratropium 3 ml 04/03/19 22:30 04/04/19 14:18 Duoneb NEB 3 ml [id number] NATASHA Administration Amlodipine Besylate 5 mg 04/04/19 09:00 04/04/19 09:21 Norvasc PO 5 mg DAILY NATASHA Administration Carvedilol 12.5 mg 04/04/19 09:00 04/04/19 09:21 Coreg PO 12.5 mg BID NATASHA Administration Doxycycline Hyclate 100 mg 04/04/19 09:00 04/04/19 09:21 Vibramycin PO 100 mg BID NATASHA Administration Guaifenesin 600 mg 04/04/19 09:00 04/04/19 09:21 Mucinex PO 600 mg Q12HR NATASHA Administration Heparin Sodium (Porcine) 5,000 units 04/04/19 09:00 04/04/19 15:06 Heparin SC 5,000 units TID NATASHA Administration Ceftriaxone Sodium 2 gm/ 100 mls @ 200 mls/hr 04/04/19 09:00 04/04/19 09:21 Sodium Chloride IVPB 100 mls DAILY NATASHA Administration Sodium Chloride 1,000 mls @ 70 mls/hr 04/04/19 14:00 04/04/19 15:06 Normal Saline 0.9% IV 1,000 mls .[id number] NATASHA Administration Nystatin 0 gm 04/04/19 09:00 04/04/19 09:30 Mycostatin Powder TOP 1 applic BID NATASHA Administration Saccharomyces Boulardii 250 mg 04/04/19 09:00 04/04/19 09:21 Florastor PO 250 mg DAILY NATASHA Administration - Exam General - other findings: Obese Eye: anicteric sclera ENT: dry oral mucosa Neck: supple, symmetric, no JVD, no thyromegaly Heart: RRR, no gallops, no rubs, normal peripheral pulses Respiratory: CTAB, no wheezes, no rales, no ronchi Gastrointestinal: soft, non-tender, non-distended, normal bowel sounds Psychiatric: normal affect, normal behavior Hosp A/P (1) Acute worsening of stage 3 chronic kidney disease Code(s): N18.3 - CHRONIC KIDNEY DISEASE, STAGE 3 (MODERATE) Status: Acute (2) UTI (urinary tract infection) Status: Acute (3) COPD (chronic obstructive pulmonary disease) Status: Chronic (4) DM type 2 (diabetes mellitus, type 2) Status: Chronic (5) HTN (hypertension) Code(s): I10 - ESSENTIAL (PRIMARY) HYPERTENSION Status: Chronic (6) Obesity (BMI 30-39.9) Code(s): E66.9 - OBESITY, UNSPECIFIED Status: Chronic (7) Hyperkalemia Code(s): E87.5 - HYPERKALEMIA Status: Resolved - Plan Continue IV fluids, recheck creatinine. Continue ceftriaxone, follow urine culture. HTN controlled. Hyperkalemia resolved. Start accuchecks and insulin sliding scale. COPD stable. PT/OT eval/tx
[2019-04-04] MEDS ORDERED: Dextrose 50% Abboject 50 ML SYRINGE SLOW IVP PRN (18:25)
[2019-04-04] MEDS ORDERED: HumaLOG 300 UNITS/3 ML VIAL SC PRN (18:25)
[2019-04-04] MEDS ORDERED: Dextrose 5% in Water 1,000 ML IV PRN (18:25)
[2019-04-04] MEDS: Atorvastatin Calcium 20 MG TAB PO SCH (20:29)
[2019-04-05] MEDS: Sodium Chloride 0.9% 1,000 ML IV SCH ×3 (05:25→19:15)
[2019-04-05] MEDS: Carvedilol 6.25 MG TAB PO SCH ×2 (08:26→20:44)
[2019-04-05] MEDS: Amlodipine 5 MG TAB PO SCH (08:26)
[2019-04-05] MEDS: Doxycycline 100 MG CAP PO SCH ×2 (08:27→20:48)
[2019-04-05] MEDS: guaiFENesin ER 600 MG TAB PO SCH ×2 (08:27→20:48)
[2019-04-05] MEDS: Heparin 5,000 UNITS/ML VIAL SC SCH ×3 (08:27→20:48)
[2019-04-05] MEDS: Saccharomyces boulardii 250 MG CAP PO SCH (08:27)
[2019-04-05] MEDS: cefTRIAXone\\ROCEPHIN 2 GM in Sodium Chloride 0.9% 100 ML IVPB SCH (08:27)
[2019-04-05] MEDS: Nystatin Powder 15 GM BOT TOP SCH ×2 (08:28→20:49)
[2019-04-05 11:06] LABS: #Eosinphils 0.2 thou/uL (0.0-0.7); #Lymphocytes 1.3 thou/uL (1.20-3.40); #Monocytes 0.6 thou/uL (0.11-0.59); %Basophils 0.3 % (0.0-1.0); %Lymphocytes 16.4 % (21.0-51.0); %Monocytes 7.4 % (0.0-10.0); %Neutrophils 73.8 % (42.0-75.0); Hemoglobin 9.7 g/dL (12.0-16.0); Mean Corpuscular HGB CONC 31.9 g/dL (32.0-36.0); Mean Corpuscular Hemoglobin 31.1 pg (27.0-31.0); Mean Corpuscular Volume 97.6 fL (78.0-98.0); Mean Platelet Volume 7.3 fL (7.4-10.4); Platelet Count 277 thou/uL (130-400); RBC Distribution Width 13.4 % (11.5-14.5); Red Blood Cell (RBC) Count 3.12 mill/uL (4.20-5.40); White Blood Cell (WBC) Count 8.1 thou/uL (4.8-10.8)
[2019-04-05 11:26] LABS: Anion Gap 11 mmol/L (10-20); BUN (Urea Nitrogen) 41 mg/dL (9.8-20.1); Calc. Creatinine Clearance 50 mL/min (70-130); Calcium 8.5 mg/dL (7.8-10.44); Carbon Dioxide 21 mmol/L (23-31); Chloride 117 mmol/L (98-107); Estimated GFR-MDRD 38; Glucose 112 mg/dL (83-110); Potassium 4.6 mmol/L (3.5-5.1); Sodium 144 mmol/L (136-145)
--- NOTE | 2019-04-05 18:24 | PDOC.HOSPP ---
- Subjective Encounter Date: 04/05/19 Encounter Time: 09:00 Subjective: Pt seen for followup re: GERALDINE. Feels well, no complaints. - Objective Vital Signs & Weight: Vital Signs (12 hours) Temp Pulse Pulse Pulse Resp BP BP 04/05/19 15:43 98.1 F 83 16 04/05/19 15:06 86 20 04/05/19 14:45 103 H 86 172/79 H 170/75 H 04/05/19 11:38 97.8 F 84 16 04/05/19 11:03 79 16 04/05/19 07:24 04/05/19 07:22 94 16 04/05/19 07:20 89 18 BP Pulse Ox 04/05/19 15:43 145/76 H 97 04/05/19 15:06 04/05/19 14:45 04/05/19 11:38 147/68 H 97 04/05/19 11:03 04/05/19 07:24 96 04/05/19 07:22 96 04/05/19 07:20 160/83 H 96 Weight Weight 222 lb 4.8 oz I&O: 04/04/19 04/05/19 04/06/19 06:59 06:59 06:59 Intake Total 883 790 Output Total 425 460 Balance 458 330 Result Diagrams: 04/05/19 10:23 04/05/19 10:23 Additional Labs: Accuchecks 04/05/19 04/05/19 04/05/19 16:39 10:49 05:27 POC Glucose 124 H 103 110 04/04/19 20:21 POC Glucose 115 H Labs and MARs reviewed by me EKG Reviewed by me: Yes (Tele: NSR) Hospitalist ROS - Review of Systems Respiratory: denies: cough, shortness of breath, SOB with excertion, pleuritic pain, wheezing Cardiovascular: denies: chest pain, palpitations, orthopnea, paroxysmal noc. dyspnea, edema, light headedness - Medication Medications: Active Medications Generic Name Dose Route Start Last Admin Trade Name Freq PRN Reason Stop Dose Admin Albuterol/Ipratropium 3 ml 04/03/19 22:30 04/05/19 15:06 Duoneb NEB 3 ml [id number] NATASHA Administration Amlodipine Besylate 5 mg 04/04/19 09:00 04/05/19 08:26 Norvasc PO 5 mg DAILY NATASHA Administration Atorvastatin Calcium 20 mg 04/04/19 21:00 04/04/19 20:29 Lipitor PO 20 mg HS NATASHA Administration Carvedilol 12.5 mg 04/04/19 09:00 04/05/19 08:26 Coreg PO 12.5 mg BID NATASHA Administration Doxycycline Hyclate 100 mg 04/04/19 09:00 04/05/19 08:27 Vibramycin PO 100 mg BID NATASHA Administration Guaifenesin 600 mg 04/04/19 09:00 04/05/19 08:27 Mucinex PO 600 mg Q12HR NATASHA Administration Heparin Sodium (Porcine) 5,000 units 04/04/19 09:00 04/05/19 15:42 Heparin SC 5,000 units TID NATASHA Administration Ceftriaxone Sodium 2 gm/ 100 mls @ 200 mls/hr 04/04/19 09:00 04/05/19 08:27 Sodium Chloride IVPB 100 mls DAILY NATASHA Administration Sodium Chloride 1,000 mls @ 70 mls/hr 04/04/19 14:00 04/05/19 06:02 Normal Saline 0.9% IV 1,000 mls .[id number] NATASHA Administration Nystatin 0 gm 04/04/19 09:00 04/05/19 08:28 Mycostatin Powder TOP 1 applic BID NATASHA Administration Saccharomyces Boulardii 250 mg 04/04/19 09:00 04/05/19 08:27 Florastor PO 250 mg DAILY NATASHA Administration - Exam General - other findings: Obesity ENT: normocephalic atraumatic Neck: supple, symmetric, no JVD Heart: RRR Respiratory: CTAB, no ronchi Gastrointestinal: soft, non-tender Gastrointestinal - other findings: ostomy Musculoskeletal: no muscle wasting Psychiatric: normal affect, normal behavior Hosp A/P (1) Acute worsening of stage 3 chronic kidney disease Code(s): N18.3 - CHRONIC KIDNEY DISEASE, STAGE 3 (MODERATE) Status: Acute (2) UTI (urinary tract infection) Status: Acute (3) COPD (chronic obstructive pulmonary disease) Status: Chronic (4) DM type 2 (diabetes mellitus, type 2) Status: Chronic (5) HTN (hypertension) Code(s): I10 - ESSENTIAL (PRIMARY) HYPERTENSION Status: Chronic (6) Obesity (BMI 30-39.9) Code(s): E66.9 - OBESITY, UNSPECIFIED Status: Chronic (7) Hyperkalemia Code(s): E87.5 - HYPERKALEMIA Status: Resolved - Plan continue antibiotics, PT/OT, out of bed/ambulate Creatinine improving, close to baseline. Switch to ciprofloxacin for Providencia UTI. Blood sugars controlled. COPD stable. Dispo: Rehab vs. SNU BP high, increase amlodipine to 10 mg daily.
[2019-04-05] MEDS ORDERED: Amlodipine 5 MG TAB PO SCH (18:30)
[2019-04-05] MEDS: Cipro 250 MG TAB PO SCH (20:44)
[2019-04-05] MEDS: Atorvastatin Calcium 20 MG TAB PO SCH (20:48)
[2019-04-06 04:31] LABS: #Eosinphils 0.3 thou/uL (0.0-0.7); #Lymphocytes 1.9 thou/uL (1.20-3.40); #Monocytes 0.6 thou/uL (0.11-0.59); #Neutrophils 4.4 thou/uL (1.40-6.50); %Basophils 0.6 % (0.0-1.0); %Eosinophils 3.5 % (0.0-10.0); %Lymphocytes 25.6 % (21.0-51.0); %Monocytes 8.9 % (0.0-10.0); %Neutrophils 61.4 % (42.0-75.0); Hemoglobin 9.3 g/dL (12.0-16.0); Mean Corpuscular HGB CONC 31.7 g/dL (32.0-36.0); Mean Corpuscular Volume 97.6 fL (78.0-98.0); Mean Platelet Volume 7.3 fL (7.4-10.4); Platelet Count 242 thou/uL (130-400); RBC Distribution Width 13.6 % (11.5-14.5); Red Blood Cell (RBC) Count 3.01 mill/uL (4.20-5.40); White Blood Cell (WBC) Count 7.2 thou/uL (4.8-10.8)
[2019-04-06 04:53] LABS: Anion Gap 9 mmol/L (10-20); BUN (Urea Nitrogen) 32 mg/dL (9.8-20.1); Calc. Creatinine Clearance 53 mL/min (70-130); Calcium 8.2 mg/dL (7.8-10.44); Carbon Dioxide 20 mmol/L (23-31); Chloride 118 mmol/L (98-107); Estimated GFR-MDRD 41; Glucose 91 mg/dL (83-110); Potassium 4.3 mmol/L (3.5-5.1); Sodium 143 mmol/L (136-145)
[2019-04-06] MEDS: Cipro 250 MG TAB PO SCH ×2 (05:10→20:25)
[2019-04-06] MEDS: Saccharomyces boulardii 250 MG CAP PO SCH (09:06)
[2019-04-06] MEDS: Amlodipine 10 MG TAB PO SCH (09:06)
[2019-04-06] MEDS: Heparin 5,000 UNITS/ML VIAL SC SCH ×3 (09:06→20:25)
[2019-04-06] MEDS: guaiFENesin ER 600 MG TAB PO SCH ×2 (09:06→20:26)
[2019-04-06] MEDS: Carvedilol 6.25 MG TAB PO SCH ×2 (09:06→20:26)
[2019-04-06] MEDS: Doxycycline 100 MG CAP PO SCH ×2 (09:06→20:25)
[2019-04-06] MEDS: Nystatin Powder 15 GM BOT TOP SCH ×2 (09:07→20:28)
[2019-04-06] MEDS: Sodium Chloride 0.9% 1,000 ML IV SCH (09:12)
--- NOTE | 2019-04-06 19:20 | PDOC.HOSPP ---
- Subjective Encounter Date: 04/06/19 Encounter Time: 11:00 Subjective: Pt seen for followup re: UTI. Feels well, no complaints. - Objective Vital Signs & Weight: Vital Signs (12 hours) Temp Pulse Pulse Pulse Resp BP BP 04/06/19 19:16 04/06/19 19:15 04/06/19 15:10 97.5 F L 75 20 04/06/19 14:11 73 16 04/06/19 11:53 97.9 F 79 20 04/06/19 11:02 70 16 04/06/19 10:54 75 63 140/63 115/56 L 04/06/19 09:06 72 04/06/19 08:20 98.3 F 72 18 04/06/19 07:25 04/06/19 07:22 83 16 BP Pulse Ox 04/06/19 19:16 96 04/06/19 19:15 96 04/06/19 15:10 127/60 95 04/06/19 14:11 97 04/06/19 11:53 138/69 97 04/06/19 11:02 96 04/06/19 10:54 04/06/19 09:06 04/06/19 08:20 142/66 H 95 04/06/19 07:25 96 04/06/19 07:22 96 Weight Weight 222 lb 1.6 oz I&O: 04/05/19 04/06/19 04/07/19 06:59 06:59 06:59 Intake Total 790 1390 650 Output Total 460 800 Balance 330 1390 -150 Result Diagrams: 04/06/19 04:05 04/06/19 04:05 Additional Labs: Accuchecks 04/06/19 04/06/19 04/06/19 17:12 11:15 05:44 POC Glucose 110 110 87 04/05/19 20:41 POC Glucose 91 Labs and MARs reviewed by me EKG Reviewed by me: Yes (Tele: NSR) Hospitalist ROS - Review of Systems Gastrointestinal: denies: nausea, vomiting, abdominal pain, diarrhea, constipation, melena, hematochezia Genitourinary: denies: dysuria, frequency, incontinence, hematuria, retention - Medication Medications: Active Medications Generic Name Dose Route Start Last Admin Trade Name Freq PRN Reason Stop Dose Admin Albuterol/Ipratropium 3 ml 04/03/19 22:30 04/06/19 19:15 Duoneb NEB 3 ml [id number] NATASHA Administration Amlodipine Besylate 10 mg 04/06/19 09:00 04/06/19 09:06 Norvasc PO 10 mg DAILY NATASHA Administration Atorvastatin Calcium 20 mg 04/04/19 21:00 04/05/19 20:48 Lipitor PO 20 mg HS NATASHA Administration Carvedilol 12.5 mg 04/04/19 09:00 04/06/19 09:06 Coreg PO 12.5 mg BID NATASHA Administration Ciprofloxacin 250 mg 04/05/19 20:00 04/06/19 05:10 Cipro PO 250 mg BID@0600,2000 NATASHA Administration Doxycycline Hyclate 100 mg 04/04/19 09:00 04/06/19 09:06 Vibramycin PO 100 mg BID NATASHA Administration Guaifenesin 600 mg 04/04/19 09:00 04/06/19 09:06 Mucinex PO 600 mg Q12HR NATASHA Administration Heparin Sodium (Porcine) 5,000 units 04/04/19 09:00 04/06/19 14:50 Heparin SC 5,000 units TID NATASHA Administration Sodium Chloride 1,000 mls @ 70 mls/hr 04/04/19 14:00 04/06/19 09:12 Normal Saline 0.9% IV 1,000 mls .[id number] NATASHA Administration Nystatin 0 gm 04/04/19 09:00 04/06/19 09:07 Mycostatin Powder TOP 1 applic BID NATASHA Administration Saccharomyces Boulardii 250 mg 04/04/19 09:00 04/06/19 09:06 Florastor PO 250 mg DAILY NATASHA Administration - Exam General - other findings: Obese Eye: anicteric sclera ENT: moist mucosa Neck: supple, symmetric Heart: RRR Respiratory: CTAB, no rales Gastrointestinal: soft, non-tender Gastrointestinal - other findings: R ostomy Extremities: no cyanosis Skin: no lesions Musculoskeletal: normal tone Psychiatric: normal affect, normal behavior Hosp A/P (1) UTI (urinary tract infection) Status: Acute (2) COPD (chronic obstructive pulmonary disease) Status: Chronic (3) DM type 2 (diabetes mellitus, type 2) Status: Chronic (4) HTN (hypertension) Code(s): I10 - ESSENTIAL (PRIMARY) HYPERTENSION Status: Chronic (5) Obesity (BMI 30-39.9) Code(s): E66.9 - OBESITY, UNSPECIFIED Status: Chronic (6) Hyperkalemia Code(s): E87.5 - HYPERKALEMIA Status: Resolved (7) Acute worsening of stage 3 chronic kidney disease Code(s): N18.3 - CHRONIC KIDNEY DISEASE, STAGE 3 (MODERATE) Status: Resolved - Plan continue antibiotics, out of bed/ambulate Continue ciprofloxacin, Providencia UTI. Blood sugars controlled. COPD stable. Dispo: Pt wants to go home with HH. HTN controlled. (amlodipine dose increased yesterday to 10 mg daily) Likely home 24-48 h
[2019-04-06] MEDS: Atorvastatin Calcium 20 MG TAB PO SCH (20:26)
[2019-04-07] MEDS: Sodium Chloride 0.9% 1,000 ML IV SCH ×2 (00:47→14:12)
[2019-04-07 05:13] LABS: Anion Gap 10 mmol/L (10-20); BUN (Urea Nitrogen) 23 mg/dL (9.8-20.1); Calc. Creatinine Clearance 59 mL/min (70-130); Calcium 8.1 mg/dL (7.8-10.44); Carbon Dioxide 19 mmol/L (23-31); Chloride 117 mmol/L (98-107); Estimated GFR-MDRD 46; Glucose 91 mg/dL (83-110); Potassium 4.1 mmol/L (3.5-5.1); Sodium 142 mmol/L (136-145)
[2019-04-07 05:17] LABS: #Eosinphils 0.3 thou/uL (0.0-0.7); #Monocytes 0.6 thou/uL (0.11-0.59); #Neutrophils 4.5 thou/uL (1.40-6.50); %Basophils 0.1 % (0.0-1.0); %Eosinophils 3.6 % (0.0-10.0); %Lymphocytes 27.4 % (21.0-51.0); %Monocytes 8.2 % (0.0-10.0); %Neutrophils 60.8 % (42.0-75.0); Band 1 % (5-11); Eosinophils 2 % (0-10); Hemoglobin 9.3 g/dL (12.0-16.0); Lymphocytes 26 % (21-51); MDiff Complete? YES; Mean Corpuscular Hemoglobin 29.9 pg (27.0-31.0); Mean Corpuscular Volume 99.9 fL (78.0-98.0); Mean Platelet Volume 7.1 fL (7.4-10.4); Monocytes 2 % (0-10); Neutrophil 69 % (42-75); Platelet Count 256 thou/uL (130-400); RBC Distribution Width 13.5 % (11.5-14.5); Red Blood Cell (RBC) Count 3.09 mill/uL (4.20-5.40); White Blood Cell (WBC) Count 7.3 thou/uL (4.8-10.8)
[2019-04-07] MEDS: Cipro 250 MG TAB PO SCH (06:31)
[2019-04-07] MEDS: Saccharomyces boulardii 250 MG CAP PO SCH (08:11)
[2019-04-07] MEDS: guaiFENesin ER 600 MG TAB PO SCH (08:11)
[2019-04-07] MEDS: Carvedilol 6.25 MG TAB PO SCH (08:11)
[2019-04-07] MEDS: Amlodipine 10 MG TAB PO SCH (08:11)
[2019-04-07] MEDS: Doxycycline 100 MG CAP PO SCH (08:11)
[2019-04-07] MEDS: Heparin 5,000 UNITS/ML VIAL SC SCH ×2 (08:11→14:12)
[2019-04-07] MEDS: Nystatin Powder 15 GM BOT TOP SCH (08:12)
[2019-04-07 15:53] VITALS: BP 128/69; TEMP 98
--- NOTE | 2019-04-07 19:26 | DIS ---
DATE OF ADMISSION: 04/03/2019 DATE OF DISCHARGE: 04/07/2019 PRIMARY CARE PROVIDER: Eveline Garner, DO DISCHARGE DIAGNOSES: 1. Acute on chronic stage 3 renal failure. 2. Left lower lobe pneumonia. 3. Urinary tract infection with Providencia rettgeri resistant to ampicillin, ampicillin/sulbactam, and nitrofurantoin, sensitive to amikacin, cefepime, cefoxitin, ceftazidime, ceftriaxone, ciprofloxacin, gentamicin, levofloxacin, Zosyn, and Bactrim. 4. Hyperkalemia. CONDITION OF PATIENT ON THE DAY OF DISCHARGE: Stable. I assessed Ms. Du on the day of discharge. She denies any chest pain or shortness of breath. Vital signs are stable. S1 and S2 are heard, regular. Lungs are clear to auscultation bilaterally. POST-ACUTE CARE FOLLOWUP: With primary care provider in 3 days' time. DISCHARGE MEDICATIONS: 1. Levofloxacin 750 mg every 48 hours, three doses, to be started on the morning of 04/09/2019. 2. Amlodipine dose increased to 10 mg daily. 3. Valsartan has been discontinued. Otherwise, she has continued on the rest of her home medications, which include: 1. Pravastatin 20 mg daily. 2. Coreg 12.5 mg 2 times a day. 3. Tramadol p.r.n. 4. Lasix 40 mg daily. 5. Gabapentin 300 mg 2 times a day. 6. Ventolin p.r.n. HOSPITAL COURSE: Ms. Du is a pleasant 73-year-old lady who was admitted to [facility] for hyperkalemia, acute on chronic renal failure, pneumonia and urinary tract infection on 04/03/2019. Please refer to Dr. Payne's history and physical note dated 04/03/2019. She improved with intravenous fluids and treatment for hyperkalemia. She also received intravenous antibiotics. Urine cultures grew Providencia rettgeri, sensitivities as described above. She improved clinically. She is being discharged home with home health. Home health is through [facility]. Her ARB was discontinued during this hospitalization. Because of elevated blood pressures, her amlodipine dose has been increased. LABORATORY DATA: On the day of discharge, she has white count 7300, hemoglobin 9.3, platelet count 256,000. Sodium 142, potassium 4.1, blood urea nitrogen 23, and creatinine 1.36. DISCHARGE DESTINATION: Home. DIET: Heart healthy and renal. ACTIVITY: As tolerated. TIME SPENT: Total amount of time spent coordinating this discharge: 32 minutes. Job ID: [id number]
--- NOTE | 2019-04-10 00:46 | PQF ---
JEAN WOODS DAVID [id number] CLINICAL DOCUMENTATION CLARIFICATION FORM: POST DISCHARGE Addendum to original discharge summary date: ____ Late entry note date: __ DATE: 04/10/2019 ATTN: Jorge Luis Aguirre Please exercise your independent, professional judgment in responding to the clarification form. Clinical indicators are provided on the bottom of this form for your review Please check appropriate box(es): [ x ] Sepsis due to Pneumonia [ ] Sepsis due to Pneumonia with associated GERALDINE [ ] Sepsis due to UTI [ ] Sepsis due to UTI with associated GERALDINE [ ] Localized infection without sepsis [ ] Other diagnosis [ ] Unable to determine In addition, please specify: Present on Admission (POA): [ x ] Yes [ ] No [ ] Unable to determine For continuity of documentation, please document condition throughout progress notes and discharge summary. Thank You. CLINICAL INDICATORS - SIGNS / SYMPTOMS / LABS H&P p1 04/03 Dr Payne The pt presented to the ER with SOB along with wheezing that has been going on for last 48 hrs or so H&P p1 04/03 Dr Payne She also had subjective fever, however denied recording the temperature H&P p1 04/03 Dr Payne She also had cough with small amount of phlegm H&P p1 04/03 Dr Payne Initial vital signs showed temperature 97.7 with respiration of 22, pulse of 111, BP of 100/53 with O2 sat of 94% on room air H&P p1 04/03 Dr Payne Chest x-ray showed possible left lower lobe infiltrate H&P p3 04/03 Dr Pyane Acute kidney injury on chronic kidney disease stage 3 with hyperkalemia, probably secondary to Pneumonia along with her medications RISK FACTORS H&P p3 04/03 - Left lower lobe Pneumonia H&P p3 04/03 - Acute kidney injury H&P p3 04/03 - Urinary tract infection TREATMENTS: MAY 06 Ceftriaxone MAY 06 Ciprofloxacin MAY 06 Levaquin H&P p3 04/03 - Urine culture obtained H&P p3 04/03 - Continue Nebulizer treatments (This form is maintained as a part of the permanent medical record) 2014 [facility], [employer]. All Rights Reserved [email or web address]
== END 2019-04-07 16:00 | disposition home health service (06) | DRG 871 ==
LOC: ERS 16:32 → ERHOLD 17:23 → 2NO 21:16
PROVIDERS: ADMIT Emergency Medicine; ATTEND Emergency Medicine
DX: A41.9 Sepsis, unspecified organism (principal); J18.9 Pneumonia, unspecified organism; N17.9 Acute kidney failure, unspecified; N39.0 Urinary tract infection, site not specified; Z16.24 Resistance to multiple antibiotics; J44.0 Chronic obstructive pulmonary disease with (acute) lower respiratory infection; I13.0 Hypertensive heart and chronic kidney disease with heart failure and stage 1 through stage 4 chronic kidney disease, or unspecified chronic kidney disease; I50.32 Chronic diastolic (congestive) heart failure; E87.2 Acidosis; E87.1 Hypo-osmolality and hyponatremia; N18.3 Chronic kidney disease, stage 3 (moderate); E87.5 Hyperkalemia; B96.89 Other specified bacterial agents as the cause of diseases classified elsewhere; E11.22 Type 2 diabetes mellitus with diabetic chronic kidney disease; D63.1 Anemia in chronic kidney disease; E78.5 Hyperlipidemia, unspecified; E66.01 Morbid (severe) obesity due to excess calories; Z68.38 Body mass index [BMI] 38.0-38.9, adult; Z93.2 Ileostomy status; Z23 Encounter for immunization; Z79.899 Other long term (current) drug therapy
CPT/HCPCS: 36415; 36416; 74176; 80048; 80053; 81003; 81015; 83735; 85025; 87077; 87086; 87186; 90471; 90662; 93005; 94640; 96360; G0008; J0696; J1644; J1815; J3490; J7070; J7611; J7620

== ENCOUNTER 2019-04-10 09:33 | Observation (INO) | payer MEDICARE, MEDICAID ==
[2019-04-10 10:59] LABS: #Eosinphils 0.3 thou/uL (0.0-0.7); #Lymphocytes 0.9 thou/uL (1.20-3.40); #Monocytes 0.5 thou/uL (0.11-0.59); %Basophils 0.1 % (0.0-1.0); %Eosinophils 2.3 % (0.0-10.0); %Lymphocytes 7.8 % (21.0-51.0); %Monocytes 4.4 % (0.0-10.0); %Neutrophils 85.4 % (42.0-75.0); Hemoglobin 10.4 g/dL (12.0-16.0); Mean Corpuscular Hemoglobin 29.9 pg (27.0-31.0); Mean Platelet Volume 7.6 fL (7.4-10.4); Platelet Count 195 thou/uL (130-400); RBC Distribution Width 14.1 % (11.5-14.5); Red Blood Cell (RBC) Count 3.47 mill/uL (4.20-5.40); White Blood Cell (WBC) Count 11.7 thou/uL (4.8-10.8)
[2019-04-10 13:04] LABS: ALT (SGPT) Less than 7 U/L (8-55); AST (SGOT) 12 U/L (5-34); Albumin 3.6 g/dL (3.4-4.8); Alkaline Phosphatase 71 U/L (40-110); Anion Gap 18 mmol/L (10-20); BUN (Urea Nitrogen) 17 mg/dL (9.8-20.1); Bilirubin, Total 0.3 mg/dL (0.2-1.2); Calc. Creatinine Clearance 0 mL/min (70-130); Calcium 8.5 mg/dL (7.8-10.44); Carbon Dioxide 15 mmol/L (23-31); Chloride 113 mmol/L (98-107); Estimated GFR-MDRD 47; Globulin 3.6 g/dL (2.4-3.5); Glucose 110 mg/dL (83-110); Magnesium 1.4 mg/dL (1.6-2.6); Potassium 4.6 mmol/L (3.5-5.1); Protein, Total 7.2 g/dL (6.0-8.3); Sodium 141 mmol/L (136-145)
[2019-04-10] MEDS ORDERED: PROVENTIL INHALER 6.7 G (200 INHALATIONS) INH PRN (13:32)
[2019-04-10] MEDS ORDERED: traMADol HCl 50 MG TAB PO PRN (13:32)
[2019-04-10] MEDS ORDERED: Acetaminophen 325 MG TAB PO PRN (13:34)
[2019-04-10] MEDS ORDERED: Bisacodyl 5 MG TAB PO PRN (13:34)
[2019-04-10] MEDS ORDERED: HYDROcodone/Acetaminophen 5/325 mg Tablet PO PRN (13:34)
[2019-04-10] MEDS ORDERED: Ondansetron PF 4 MG/2 ML Vial IVP PRN (13:34)
[2019-04-10] MEDS ORDERED: Ondansetron ODT 4 MG TAB PO PRN (13:34)
[2019-04-10] MEDS ORDERED: HYDROcodone/Acetaminophen 7.5/325 mg Tablet PO PRN (13:34)
--- NOTE | 2019-04-10 14:55 | PDOC.HHP ---
Hospitalist HPI - History of Present Illness Seizure activity History of Present Illness: 73 year old with PMHx of remote seizures presents with multiple episodes of seizure type activity. I find the patient in the ED, she is sitting up in bed in no acute distress. Patient alert and oriented x3, though she is confused about details of today. Patient states that she was sleeping in bed and then was found by her family on the ground. Family report seizure activity while on ground. Patient was confused afterwards, does not know if she bite her tongue though there is not obvious bite suzanne, does not know if she lost control of her bowels or bladder. Patient was taken to [facility], had imaging and blood work and was sent home. Patient again had seizure activity at home and was sent to [facility] for higher level of care. Will admit to neurology floor on telemetry. Neurology consult requested for further recommendations. Hospitalist ROS - Review of Systems All other systems reviewed; all pertinent +/- noted in HPI/Subj Hospitalist History - Past Medical History Source: patient, old records Cardiac: reports: CHF, HTN, Hyperlipidemia - Family History Family History: reports: hypertension - Social History Smoking Status: Former smoker Tobacco Type: cigarettes Alcohol: reports: None Drugs: reports: none Living Situation: With Family Domestic Violence: Negative Activity level: independent ambulation - Exam General Appearance: NAD, awake alert Eye: PERRL, anicteric sclera ENT: normocephalic atraumatic, moist mucosa Neck: supple, symmetric, no lymphadenopathy Heart: no murmur, no gallops, no rubs, normal peripheral pulses Respiratory: CTAB, no wheezes, no rales, no ronchi, normal chest expansion, no tachypnea Gastrointestinal: soft, non-tender, non-distended, no guarding, no rigidity Extremities: 1+ LE edema Skin: no lesions, no rashes Neurological: cranial nerve grossly intact, normal sensation to touch, no new deficit Musculoskeletal: generalized weakness Psychiatric: normal affect, normal behavior, A&O x 3 Hospitalist Results - Labs Result Diagrams: 04/10/19 10:46 04/10/19 10:46 Lab results: WBC 11.7 thou/uL (4.8-10.8) H 04/10/19 10:46 Hgb 10.4 g/dL (12.0-16.0) L 04/10/19 10:46 Hct 35.7 % (36.0-47.0) L 04/10/19 10:46 MCV 103.0 fL (78.0-98.0) H 04/10/19 10:46 Plt Count 195 thou/uL (130-400) 04/10/19 10:46 Neutrophils % 85.4 % (42.0-75.0) H 04/10/19 10:46 Sodium 141 mmol/L (136-145) 04/10/19 10:46 Potassium 4.6 mmol/L (3.5-5.1) 04/10/19 10:46 Chloride 113 mmol/L (98-107) H 04/10/19 10:46 Carbon Dioxide 15 mmol/L (23-31) L 04/10/19 10:46 BUN 17 mg/dL (9.8-20.1) 04/10/19 10:46 Creatinine 1.34 mg/dL (0.6-1.1) H 04/10/19 10:46 Glucose 110 mg/dL (83-110) 04/10/19 10:46 Calcium 8.5 mg/dL (7.8-10.44) 04/10/19 10:46 Total Bilirubin 0.3 mg/dL (0.2-1.2) 04/10/19 10:46 AST 12 U/L (5-34) 04/10/19 10:46 ALT Less than 7 U/L (8-55) L 04/10/19 10:46 Alkaline Phosphatase 71 U/L (40-110) 04/10/19 10:46 Troponin I Less than 0.010 ng/mL (< 0.028) 04/10/19 13:52 Serum Total Protein 7.2 g/dL (6.0-8.3) 04/10/19 10:46 Albumin 3.6 g/dL (3.4-4.8) 04/10/19 10:46 - Radiology Interpretation CT scan - head Status: image reviewed by pr Hospitalist H&P A/P - Problem (1) Seizure Code(s): R56.9 - UNSPECIFIED CONVULSIONS Status: Acute (2) Syncope Code(s): R55 - SYNCOPE AND COLLAPSE Status: Acute (3) COPD (chronic obstructive pulmonary disease) Status: Chronic (4) DM type 2 (diabetes mellitus, type 2) Status: Chronic (5) H/O ileostomy Code(s): Z98.89 - OTHER SPECIFIED POSTPROCEDURAL STATES * DO NOT USE * Status : Chronic (6) HTN (hypertension) Code(s): I10 - ESSENTIAL (PRIMARY) HYPERTENSION Status: Chronic (7) Macrocytic anemia Code(s): D53.9 - NUTRITIONAL ANEMIA, UNSPECIFIED Status: Chronic (8) Obesity (BMI 30-39.9) Code(s): E66.9 - OBESITY, UNSPECIFIED Status: Chronic (9) Acute worsening of stage 3 chronic kidney disease Code(s): N18.3 - CHRONIC KIDNEY DISEASE, STAGE 3 (MODERATE) Status: Resolved - Plan Plan: Plan: Admit to medical unit with telemetry Neurology consultation, recommendations appreciated MRI brain EEG echo Ativan PRN seizure Seizure precautions talking in full sentences now Mild wheezing of the lungs, hx of COPD CXR without acute findings Add duonebs Q4hr WA Continue home medications as able BP control BS control GI PPX DVT PPX
[2019-04-10] MEDS ORDERED: Lorazepam 2 MG/ML VIAL SLOW IVP PRN (15:02)
--- NOTE | 2019-04-10 16:17 | MRI ---
MRI BRAIN WITHOUT CONTRAST: History: Seizure. FINDINGS: Correlation is made with the CT scan from earlier today. No restricted diffusion is seen. There are multiple foci of T2 prolongation in the periventricular wh ite matter consistent with chronic small cell ischemic disease. No evidence of infarct, hemorrhage, m idline shift or abnormal extraaxial fluid collections are seen. The small colloid cyst noted at the f oramen of Monro on the CT scan is better visualized on the CT scan compared to the MRI. There is flui d in the mastoid air cells. IMPRESSION: No evidence of acute intracranial process. POS: OFF
[2019-04-10] MEDS: Carvedilol 6.25 MG TAB PO SCH (22:35)
[2019-04-10] MEDS: Famotidine 20 MG TAB PO SCH (22:35)
[2019-04-10] MEDS: Gabapentin 300 MG CAP PO SCH (22:35)
[2019-04-10] MEDS: Atorvastatin Calcium 20 MG TAB PO SCH (22:35)
[2019-04-11 03:42] VITALS: BMI 38.9
[2019-04-11 04:43] LABS: #Eosinphils 0.3 thou/uL (0.0-0.7); #Lymphocytes 1.7 thou/uL (1.20-3.40); #Monocytes 0.6 thou/uL (0.11-0.59); #Neutrophils 7.6 thou/uL (1.40-6.50); %Basophils 0.1 % (0.0-1.0); %Eosinophils 3.3 % (0.0-10.0); %Lymphocytes 16.8 % (21.0-51.0); %Monocytes 6.1 % (0.0-10.0); %Neutrophils 73.7 % (42.0-75.0); Hemoglobin 9.6 g/dL (12.0-16.0); Mean Corpuscular HGB CONC 30.2 g/dL (32.0-36.0); Mean Corpuscular Hemoglobin 30.3 pg (27.0-31.0); Mean Platelet Volume 7.5 fL (7.4-10.4); Platelet Count 231 thou/uL (130-400); Red Blood Cell (RBC) Count 3.16 mill/uL (4.20-5.40); White Blood Cell (WBC) Count 10.4 thou/uL (4.8-10.8)
[2019-04-11 05:05] LABS: Anion Gap 12 mmol/L (10-20); BUN (Urea Nitrogen) 15 mg/dL (9.8-20.1); Calc. Creatinine Clearance 63 mL/min (70-130); Calcium 8.5 mg/dL (7.8-10.44); Carbon Dioxide 19 mmol/L (23-31); Chloride 112 mmol/L (98-107); Estimated GFR-MDRD 49; Glucose 74 mg/dL (83-110); Potassium 4.1 mmol/L (3.5-5.1); Sodium 139 mmol/L (136-145)
--- NOTE | 2019-04-11 08:33 | PDOC.HOSPP ---
- Subjective Encounter Date: 04/11/19 Encounter Time: 10:00 Subjective: Patient without further seizures overnight. No confusion this morning. No [place] or other complaints. - Objective Vital Signs & Weight: Vital Signs (12 hours) Temp Pulse Resp BP Pulse Ox 04/11/19 08:00 97.9 F 92 18 114/64 88 L 04/11/19 07:31 100 04/11/19 05:28 100 04/11/19 05:12 77 18 91 L 04/11/19 04:00 98.4 F 74 20 143/61 H 88 L 04/10/19 23:02 95 04/10/19 22:34 98.9 F 75 18 128/57 L 92 L Weight Weight 227 lb 4.745 oz I&O: 04/10/19 04/11/19 04/12/19 06:59 06:59 06:59 Output Total 600 Balance -600 Result Diagrams: 04/11/19 04:24 04/11/19 04:24 Hospitalist ROS - Review of Systems Constitutional: denies: fever, chills Respiratory: denies: cough, shortness of breath Cardiovascular: denies: chest pain, palpitations Gastrointestinal: denies: nausea, vomiting, abdominal pain Neurological: denies: weakness, numbness, confusion, seizures - Medication Medications: Active Medications Generic Name Dose Route Start Last Admin Trade Name Freq PRN Reason Stop Dose Admin Albuterol/Ipratropium 3 ml 04/10/19 15:00 04/11/19 05:12 Duoneb NEB 3 ml [id number] NATASHA Administration Atorvastatin Calcium 20 mg 04/10/19 21:00 04/10/19 22:35 Lipitor PO Not Given HS NATASHA Carvedilol 12.5 mg 04/10/19 21:00 04/10/19 22:35 Coreg PO Not Given BID NATASHA Famotidine 20 mg 04/10/19 21:00 04/10/19 22:35 Pepcid PO Not Given BID NATASHA Gabapentin 300 mg 04/10/19 21:00 04/10/19 22:35 Neurontin PO Not Given BID NATASHA - Exam General Appearance: NAD, awake alert ENT: moist mucosa Heart: RRR, no murmur, no gallops, no rubs Respiratory: CTAB, no wheezes, no rales, no ronchi Gastrointestinal: soft, non-tender, non-distended, normal bowel sounds Extremities: no cyanosis, no clubbing, no edema Neurological: cranial nerve grossly intact, no focal deficits Psychiatric: normal affect, normal behavior, A&O x 3 Hosp A/P (1) Seizure Code(s): R56.9 - UNSPECIFIED CONVULSIONS Status: Acute (2) Syncope Code(s): R55 - SYNCOPE AND COLLAPSE Status: Acute (3) COPD (chronic obstructive pulmonary disease) Status: Chronic (4) DM type 2 (diabetes mellitus, type 2) Status: Chronic (5) H/O ileostomy Code(s): Z98.89 - OTHER SPECIFIED POSTPROCEDURAL STATES * DO NOT USE * Status : Chronic (6) HTN (hypertension) Code(s): I10 - ESSENTIAL (PRIMARY) HYPERTENSION Status: Chronic (7) Macrocytic anemia Code(s): D53.9 - NUTRITIONAL ANEMIA, UNSPECIFIED Status: Chronic (8) Obesity (BMI 30-39.9) Code(s): E66.9 - OBESITY, UNSPECIFIED Status: Chronic (9) Chronic renal failure, stage 3 (moderate) Code(s): N18.3 - CHRONIC KIDNEY DISEASE, STAGE 3 (MODERATE) Status: Chronic - Plan Neuro consult MRI normal, CT normal ECHO with EF 55-60%, diastolic dysfunction, mild Aortic stenosis EEG pending Ativan prn, Seizure precautions
[2019-04-11] MEDS: Amlodipine 10 MG TAB PO SCH (10:15)
[2019-04-11] MEDS: Famotidine 20 MG TAB PO SCH ×2 (10:15→22:13)
[2019-04-11] MEDS: Furosemide 40 MG TAB PO SCH (10:16)
[2019-04-11] MEDS: Gabapentin 300 MG CAP PO SCH ×2 (10:16→22:12)
[2019-04-11] MEDS: Carvedilol 6.25 MG TAB PO SCH ×2 (10:16→22:12)
[2019-04-11] MEDS: Atorvastatin Calcium 20 MG TAB PO SCH (22:12)
[2019-04-11] MEDS: levETIRAcetam 500 MG TAB PO SCH (22:12)
--- NOTE | 2019-04-11 23:59 | CON ---
DATE OF CONSULTATION: 04/11/2019 CONSULTING PHYSICIAN: Hospitalist Service. IMPRESSION: 1. New onset seizures without any significant intracranial structural etiology. 2. Hypertension. 3. Hyperlipidemia. PLAN: 1. Add Keppra 500 mg twice a day. 2. Office followup. HISTORY OF PRESENT ILLNESS: Ms. Du is a 73-year-old woman, who reports that over the last 2 weeks, she has had two seizure episodes. These were witnessed to have some generalized tonic clonic activity. She came in for further evaluation. She had an MRI of the brain done, which showed some small-vessel ischemic changes. Nothing acute was found. Her echocardiogram showed a normal ejection fraction of 55% to 60%. Her lab work showed some mild anemia, but otherwise her chemistry panel was unremarkable. She reports that she is back to her baseline at this point. PAST MEDICAL HISTORY: As listed above. ALLERGIES: NONE REPORTED. SOCIAL HISTORY: Previous tobacco. No alcohol use. FAMILY HISTORY: Noncontributory. MEDICATIONS: List was reviewed. REVIEW OF SYSTEMS: Ten-system review of systems is otherwise negative. PHYSICAL EXAMINATION: GENERAL: She is an overweight, elderly lady, lying in bed, in no acute distress. VITAL SIGNS: Have been stable. She is afebrile. HEENT: Pupils are equal and reactive. Conjunctivae clear. Oropharynx clear. NECK: Supple. EXTREMITIES: No cyanosis or edema. NEUROLOGIC: She is alert and appropriate. Her speech is fluent and clear. Cranial nerves were intact. Motor exam showed equal operations support specialist strength. No tremor. Dysmetria is present. Sensations intact to touch. Gait was not tested. SUMMARY: Elderly lady with new onset recurrent seizures. Go ahead and try her on Keppra and follow up with her in the office. Job ID: [id number]
--- NOTE | 2019-04-12 07:39 | PDOC.HOSPP ---
- Subjective Encounter Date: 04/12/19 Encounter Time: 09:30 Subjective: Patient without complaints today. No further seizures in the hospital. - Objective Vital Signs & Weight: Vital Signs (12 hours) Temp Pulse Resp BP BP Pulse Ox 04/12/19 04:00 98.1 F 71 16 109/57 L 94 L 04/12/19 00:00 98 F 60 16 108/54 L 100 04/11/19 22:12 116/52 L 04/11/19 19:42 97.9 F 62 16 116/52 L 99 Weight Weight 227 lb 4.745 oz I&O: 04/11/19 04/12/19 04/13/19 06:59 06:59 06:59 Intake Total 780 Output Total 600 1550 Balance -600 -770 Result Diagrams: 04/11/19 04:24 04/11/19 04:24 Hospitalist ROS - Review of Systems Constitutional: denies: fever, chills Respiratory: denies: cough, shortness of breath Cardiovascular: denies: chest pain, palpitations Gastrointestinal: denies: nausea, vomiting - Medication Medications: Active Medications Generic Name Dose Route Start Last Admin Trade Name Freq PRN Reason Stop Dose Admin Albuterol/Ipratropium 3 ml 04/10/19 15:00 04/11/19 18:44 Duoneb NEB 3 ml [id number] NATASHA Administration Amlodipine Besylate 10 mg 04/11/19 09:00 04/11/19 10:15 Norvasc PO 10 mg DAILY NATASHA Administration Atorvastatin Calcium 20 mg 04/10/19 21:00 04/11/19 22:12 Lipitor PO 20 mg HS NATASHA Administration Carvedilol 12.5 mg 04/10/19 21:00 04/11/19 22:12 Coreg PO 12.5 mg BID NATASHA Administration Famotidine 20 mg 04/10/19 21:00 04/11/19 22:13 Pepcid PO 20 mg BID NATASHA Administration Furosemide 40 mg 04/11/19 09:00 04/11/19 10:16 Lasix PO 40 mg DAILY NATASHA Administration Gabapentin 300 mg 04/10/19 21:00 04/11/19 22:12 Neurontin PO 300 mg BID NATASHA Administration Levetiracetam 500 mg 04/11/19 21:00 04/11/19 22:12 Keppra PO 500 mg BID NATASHA Administration - Exam General Appearance: NAD, awake alert ENT: moist mucosa Heart: RRR, no murmur, no gallops, no rubs Respiratory: CTAB, no wheezes, no rales, no ronchi Gastrointestinal: soft, non-tender, non-distended, normal bowel sounds Psychiatric: normal affect, normal behavior Hosp A/P (1) Seizure Code(s): R56.9 - UNSPECIFIED CONVULSIONS Status: Acute (2) Syncope Code(s): R55 - SYNCOPE AND COLLAPSE Status: Acute (3) COPD (chronic obstructive pulmonary disease) Status: Chronic (4) DM type 2 (diabetes mellitus, type 2) Status: Chronic (5) H/O ileostomy Code(s): Z98.89 - OTHER SPECIFIED POSTPROCEDURAL STATES * DO NOT USE * Status : Chronic (6) HTN (hypertension) Code(s): I10 - ESSENTIAL (PRIMARY) HYPERTENSION Status: Chronic (7) Macrocytic anemia Code(s): D53.9 - NUTRITIONAL ANEMIA, UNSPECIFIED Status: Chronic (8) Obesity (BMI 30-39.9) Code(s): E66.9 - OBESITY, UNSPECIFIED Status: Chronic (9) Chronic renal failure, stage 3 (moderate) Code(s): N18.3 - CHRONIC KIDNEY DISEASE, STAGE 3 (MODERATE) Status: Chronic - Plan Neuro consult- Dr. Thapa started Keppra and cleared for discharge and office f /u MRI normal, CT normal ECHO with EF 55-60%, diastolic dysfunction, mild Aortic stenosis d/c home with family today
[2019-04-12 07:53] VITALS: BP 120/57; TEMP 97.9
[2019-04-12] MEDS: Carvedilol 6.25 MG TAB PO SCH (09:12)
[2019-04-12] MEDS: Famotidine 20 MG TAB PO SCH (09:13)
[2019-04-12] MEDS: levETIRAcetam 500 MG TAB PO SCH (09:13)
[2019-04-12] MEDS: Furosemide 40 MG TAB PO SCH (09:13)
[2019-04-12] MEDS: Gabapentin 300 MG CAP PO SCH (09:13)
[2019-04-12] MEDS: Amlodipine 10 MG TAB PO SCH (09:13)
--- NOTE | 2019-04-12 12:54 | DIS ---
DATE OF ADMISSION: 04/10/2019 DATE OF DISCHARGE: 04/12/2019 PRIMARY CARE PHYSICIAN: Dr. Mcgovern. REASON FOR ADMISSION: Seizure. DIAGNOSES AT DISCHARGE: 1. Seizure disorder. 2. Chronic obstructive pulmonary disease, on home oxygen. 3. Diabetes mellitus type 2. 4. Chronic renal failure stage 3. 5. History of ileostomy. 6. Hypertension. 7. Macrocytic anemia. 8. Obesity. PROCEDURES: 1. CT of the brain with no acute intracranial abnormalities. 2. MRI of the brain without contrast showing no evidence for acute intracranial process. 3. Echocardiogram showing an ejection fraction of 55% to 60%. There is left ventricular hypertrophy and suggestion of diastolic dysfunction. There is also mild aortic stenosis with valve area of 1.54 sq cm. CONSULTATIONS: Neurology, Dr. Thapa. SUMMARY OF HOSPITAL COURSE: This is a 73-year-old female with a remote history of seizures, never on any medications, who presented to the ER after found to be having seizures by family. She was seen in the [facility], had imaging and blood work that were normal, and sent home. She again had seizure activity at home and came into our emergency room. She was admitted to the floor. Neurology was consulted. MRI was negative. Neurology saw the patient and started her on Keppra and cleared her for discharge and follow up as an outpatient. She did not have any seizures during hospitalization. She remained saturating well on 2 L of nasal cannula, which she uses at home. DISCHARGE MANAGEMENT: Discharged to home. FOLLOWUP: Follow up with Dr. Mcgovern in [address] Thapa in 3 to 4 weeks. ACTIVITY: As tolerated. DIET: Healthy heart diet. MEDICATIONS: 1. Keppra 500 mg twice a day, 60 tablets dispensed. 2. Albuterol as needed. 3. Amlodipine 10 mg daily. 4. Carvedilol 12.5 mg twice a day. 5. Furosemide 40 mg daily. 6. Gabapentin 300 mg twice a day. 7. Pravastatin 80 mg at night. TIME SPENT: Arranging the details of this discharge took 35 minutes. Job ID: [id number]
== END 2019-04-12 12:13 | disposition home or self-care (01) ==
LOC: ERS 09:33 → ERHOLD 13:40 → 2SE 21:36
PROVIDERS: ADMIT Internal Medicine; ATTEND Internal Medicine
DX: G40.909 Epilepsy, unspecified, not intractable, without status epilepticus (principal); I13.0 Hypertensive heart and chronic kidney disease with heart failure and stage 1 through stage 4 chronic kidney disease, or unspecified chronic kidney disease; E11.22 Type 2 diabetes mellitus with diabetic chronic kidney disease; N18.3 Chronic kidney disease, stage 3 (moderate); I50.9 Heart failure, unspecified; D63.1 Anemia in chronic kidney disease; E78.5 Hyperlipidemia, unspecified; J44.9 Chronic obstructive pulmonary disease, unspecified; E66.9 Obesity, unspecified; Z68.39 Body mass index [BMI] 39.0-39.9, adult; Z79.899 Other long term (current) drug therapy; Z87.891 Personal history of nicotine dependence; Z99.89 Dependence on other enabling machines and devices
CPT/HCPCS: 70551; 80048; 80053; 83735; 84146; 84484 ×2; 85025 ×2; 93005; 93306; 94640 ×3; 95816; 95819; 97110; 97116; 97139 ×3; 97530; 99285; G0378 ×4; 36415; 36416; J7620

== ENCOUNTER 2019-05-27 16:05 | Emergency (ER) | payer MEDICARE, MEDICAID ==
[2019-05-27 16:41] LABS: #Eosinphils 0.3 thou/uL (0.0-0.7); #Lymphocytes 1.4 thou/uL (1.20-3.40); #Monocytes 0.5 thou/uL (0.11-0.59); #Neutrophils 8.3 thou/uL (1.40-6.50); %Eosinophils 2.9 % (0.0-10.0); %Lymphocytes 13.5 % (21.0-51.0); %Monocytes 4.9 % (0.0-10.0); %Neutrophils 78.6 % (42.0-75.0); Hemoglobin 11.2 g/dL (12.0-16.0); Mean Corpuscular HGB CONC 31.3 g/dL (32.0-36.0); Mean Corpuscular Hemoglobin 30.8 pg (27.0-31.0); Mean Corpuscular Volume 98.4 fL (78.0-98.0); Platelet Count 321 thou/uL (130-400); RBC Distribution Width 14.1 % (11.5-14.5); Red Blood Cell (RBC) Count 3.64 mill/uL (4.20-5.40); White Blood Cell (WBC) Count 10.5 thou/uL (4.8-10.8)
[2019-05-27 16:56] LABS: ALT (SGPT) Less than 7 U/L (8-55); AST (SGOT) 10 U/L (5-34); Albumin 3.5 g/dL (3.4-4.8); Alkaline Phosphatase 72 U/L (40-110); Anion Gap 17 mmol/L (10-20); BUN (Urea Nitrogen) 18 mg/dL (9.8-20.1); Bilirubin, Total 0.3 mg/dL (0.2-1.2); Calc. Creatinine Clearance 0 mL/min (70-130); Calcium 8.9 mg/dL (7.8-10.44); Carbon Dioxide 26 mmol/L (23-31); Chloride 98 mmol/L (98-107); Estimated GFR-MDRD 33; Glucose 157 mg/dL (83-110); Protein, Total 7.5 g/dL (6.0-8.3); Sodium 137 mmol/L (136-145)
--- NOTE | 2019-05-27 17:35 | RAD ---
EXAM: Single view of the chest HISTORY: Seizures COMPARISON: 04/10/2019 FINDINGS: Single view of the chest shows a normal sized cardiomediastinal silhouette. There is no dru dence of consolidation, mass, or pleural effusion. The bones are unremarkable. IMPRESSION: No evidence of acute cardiopulmonary disease
[2019-05-27] MEDS ORDERED: levETIRAcetam 500 MG TAB PO SCH (17:45)
--- NOTE | 2019-05-27 17:55 | CT ---
HEAD CT WITHOUT CONTRAST: 05/27/19 COMPARISON: 04/10/19 HISTORY: Altered mental status. Seizure. FINDINGS: No parenchymal hemorrhage. No extra-axial hematoma. No midline shift. Basilar cisterns are patent. Brain volume, age appropriate. Cortical coleman-white matter differentiation is preserved. Stable hypoattenuation, parafalcine in location likely representing small intracranial lipomas. Adequate aeration of the sinuses and mastoid air cells. Intact calvarium. Stable hyperdensity in the foramen of Monro, compared with choroid plexus cyst. IMPRESSION: No acute intracranial process. POS: PPP
--- NOTE | 2019-06-01 10:54 | EKG ---
Test Reason : SEIZURE Blood Pressure : / mmHG Vent. Rate : 107 BPM Atrial Rate : 107 BPM P-R Int : 172 ms QRS Dur : 080 ms QT Int : 344 ms P-R-T Axes : 049 -13 033 degrees QTc Int : 459 ms Sinus tachycardia Possible Left atrial enlargement Nonspecific ST abnormality Abnormal ECG Confirmed by ALAINA GUTHRIE D.O. ([id number]), acquisition editor TOD AMARO ([id number]) on 06/01/2019 10:53:37 AM Referred By: JERRI Confirmed By:ALAINA GUTHRIE D.O.
== END 2019-05-27 20:20 | disposition home or self-care (01) ==
LOC: ERS 16:05
DX: R56.9 Unspecified convulsions (principal); S00.511A Abrasion of lip, initial encounter; I10 Essential (primary) hypertension; J44.9 Chronic obstructive pulmonary disease, unspecified; E11.9 Type 2 diabetes mellitus without complications; E78.5 Hyperlipidemia, unspecified; E78.00 Pure hypercholesterolemia, unspecified; E66.9 Obesity, unspecified; Z87.891 Personal history of nicotine dependence; Z79.891 Long term (current) use of opiate analgesic; Z79.899 Other long term (current) drug therapy
CPT/HCPCS: 36415; 70450; 71045; 80053; 83605; 85025; 93005; 94760

== ENCOUNTER 2020-01-12 10:47 | Inpatient (IN) | payer MEDICARE, MEDICAID ==
[2020-01-12] MEDS ORDERED: Senokot S 8.6-50 MG TAB PO PRN (11:46)
[2020-01-12] MEDS ORDERED: Acetaminophen 325 MG TAB PO PRN (11:46)
[2020-01-12 11:51] LABS: #Eosinphils 0.3 thou/uL (0.0-0.7); #Lymphocytes 2.1 thou/uL (1.20-3.40); #Monocytes 0.7 thou/uL (0.11-0.59); #Neutrophils 5.2 thou/uL (1.40-6.50); %Basophils 0.4 % (0.0-1.0); %Eosinophils 3.3 % (0.0-10.0); %Lymphocytes 25.5 % (21.0-51.0); %Monocytes 8.7 % (0.0-10.0); %Neutrophils 62.1 % (42.0-75.0); Hemoglobin 9.6 g/dL (12.0-16.0); Mean Corpuscular HGB CONC 32.3 g/dL (32.0-36.0); Mean Corpuscular Volume 98.9 fL (78.0-98.0); Mean Platelet Volume 7.2 fL (7.4-10.4); Platelet Count 277 thou/uL (130-400); RBC Distribution Width 12.6 % (11.5-14.5); Red Blood Cell (RBC) Count 3.01 mill/uL (4.20-5.40); White Blood Cell (WBC) Count 8.3 thou/uL (4.8-10.8)
[2020-01-12 12:11] LABS: ALT (SGPT) Less than 7 U/L (8-55); AST (SGOT) 10 U/L (5-34); Albumin 3.3 g/dL (3.4-4.8); Alkaline Phosphatase 68 U/L (40-110); Anion Gap 16 mmol/L (10-20); BUN (Urea Nitrogen) 87 mg/dL (9.8-20.1); Bilirubin, Total 0.2 mg/dL (0.2-1.2); Calc. Creatinine Clearance 0 mL/min (70-130); Calcium 8.5 mg/dL (7.8-10.44); Carbon Dioxide 12 mmol/L (23-31); Chloride 110 mmol/L (98-107); Estimated GFR-MDRD 10; Globulin 4.3 g/dL (2.4-3.5); Glucose 106 mg/dL (83-110); Potassium 5.8 mmol/L (3.5-5.1); Protein, Total 7.6 g/dL (6.0-8.3); Sodium 132 mmol/L (136-145)
[2020-01-12] MEDS ORDERED: Sodium Bicarbonate 150 MEQ in Dextrose 5% in Water 1,000 ML IV SCH (12:15)
--- NOTE | 2020-01-12 13:19 | ULT ---
RENAL ULTRASOUND HISTORY: Acute renal injury COMPARISON: Prior exam dated December 09, 2005 FINDINGS: Right Kidney: Size: 10.3 x 3.5 x 4.5 cm Abnormality: Normal cortical echotexture. No hydronephrosis. Left Kidney: Size: 10.3 x 3.5 x 4.5 Abnormality: There is a 2.2 x 2.4 cm cyst seen within the left mid kidney. Urinary bladder: Normal mucosa. IMPRESSION: No focal solid renal lesion or hydronephrosis. Left renal cyst.
[2020-01-12 14:05] LABS: Lactic Acid 0.5 mmol/L (0.5-2.2)
[2020-01-12 14:17] VITALS: BP 112/80
[2020-01-12 14:28] LABS: Actual Bicarbonate (HCO3a) 15.6 mEq/L (22-28); Analyzer IN Cardio ER; Base Excess (BEa) -12.4 mEq/L (-2.0 to +3.0); CO2 Tension 44.4 mmHg (35.0-45.0); Calcium, Ionized (arterial) 1.23 mmol/L (1.12-1.30); Carboxyhemoglobin (COHb) 0.2 gm% (0.0-3.0); Hemoglobin (Hb) 10.2 g/dL (12.0-16.0); O2 Tension (PaO2), arterial 69.3 mmHg (> 70.0); Potassium - ABG Lab 5.47 mmol/L (3.70-5.30)
[2020-01-12] MEDS ORDERED: methylPREDNISolone Sod Succ/PF 125 MG/2 ML VIAL IVP SCH (14:30)
[2020-01-12 14:36] LABS: Puncture Site RRA; pH, Arterial 7.16 (7.35-7.45)
[2020-01-12] MEDS ORDERED: Calcium Gluc 4.6 MEQ/10 ML (100 MG/ML) SLOW IVP ONE (14:52)
[2020-01-12] MEDS ORDERED: methylPREDNISolone Sod Succ/PF 125 MG/2 ML VIAL ONE ×2 (14:55→15:22)
[2020-01-12] MEDS ORDERED: levETIRAcetam 500 MG TAB PO SCH ×2 (15:15→21:00)
[2020-01-12] MEDS ORDERED: Calcium Gluconate 4.6 MEQ in Sodium Chloride 0.9% 100 ML IVPB SCH (15:15)
[2020-01-12] MEDS ORDERED: Albuterol Sulfate 2.5 mg/0.5 ml Neb ONE (15:23)
--- NOTE | 2020-01-12 16:49 | HP ---
CHIEF COMPLAINT: Change in mental status. HISTORY OF PRESENT ILLNESS: The patient is a very pleasant 74-year-old female with a past medical history of hypertension, COPD, hyperlipidemia, ileostomy, who presents to the hospital with change in mental status x1 day. The patient's brother, Javier, was called to see what was going on with the patient. He stated that for the past couple of days, the patient mentation has been off. Normally, she is very independent and is able to take care of herself. However, since yesterday, she just was not being herself. She was very sleepy and that is why she was brought into the hospital. They did get the nurse out there to check her vitals. Her vitals were abnormal. Her blood pressure was a little bit lower, and at this time, she was brought into the hospital. She initially presented to [facility]. At that time, they did a CT of brain, which was negative. They found her BNP at 17; however her creatinine was 5.7 and her potassium was 6.2. At this time, she was treated for hyperkalemia and was transferred here for further evaluation. She was noted to be very dehydrated in the ER and she was given a total of 1 L in the ER. PAST MEDICAL HISTORY: She has a history of hypertension, she has a history of generalized seizures, pulmonary disease, she has history of COPD, heart failure, unclear which type, diabetes type 2, hyperlipidemia, high cholesterol, and obesity. PAST SURGICAL HISTORY: She has an ileostomy, colostomy, and then has an ORIF of a right patella fracture. FAMILY HISTORY: No history of heart disease or stroke. SOCIAL HISTORY: She lives at home with her family. She is a former smoker. Denies any alcohol use, drug use. She is a full code. REVIEW OF SYSTEMS: All negative except for the ones mentioned above in the HPI. PHYSICAL EXAMINATION: VITAL SIGNS: Temperature of 98.3, respiratory rate 15, oxygen saturation 99% on room air, blood pressure 119/66, and pulse of 94. GENERAL: She is awake, oriented x2. She does appear to be in mild respiratory distress. CV: S1, S2 present. No murmurs, rubs, gallops. LUNGS: She has some expiratory wheezing. ABDOMEN: Soft. Bowel sounds are present x2 ileostomy. EXTREMITIES: Lower extremities; mild 1+ lower extremity edema. NEUROVASCULAR: No focal deficits noted. SKIN: No cuts, lesions, or bruises noted. LABORATORY RESULTS: Her WBCs of 8.3, hemoglobin 9.6, hematocrit 29.7, and her platelets are 277. Chemistry; sodium 134, potassium of 6.2, BUN of 90, creatinine of 5.69. Her TSH is normal. She did have a chest x-ray and a brain CT. Her chest x-ray did not show any acute cardiopulmonary abnormalities. Her brain CT was negative for any acute abnormalities. ASSESSMENT AND PLAN: The patient is a 74-year-old female, presents to the hospital with change in mental status. 1. Acute metabolic encephalopathy, most likely secondary to her creatinine being so high. Her baseline creatinine is 1.2. She was 6.9. She was hydrated. Her creatinine has improved. I believe, this is most likely secondary to prerenal dehydration. Renal has been consulted. The patient will get an ultrasound, which is negative, and we will continue to monitor. 2. Acute kidney injury, most likely prerenal from dehydration. We will continue IV hydration. She was wheezing. We will start her on some breathing treatments and some steroids. This most likely could be secondary to her chronic obstructive pulmonary disease exacerbation. Her BNP was normal. 3. Hyperkalemia. Her potassium was high. She has been given insulin D50, calcium gluconate, Kayexalate. We will monitor her potassium closely. She has no significant EKG changes. 4. Metabolic acidosis, most likely secondary to her elevated creatinine. We will start her on a bicarb drip. We will continue to monitor. 5. Deep venous thrombosis prophylaxis. We will put the patient on some SCDs for now. 6. Mild chronic obstructive pulmonary disease exacerbation. We will start her on some steroids and we will also give her some DuoNeb. I will repeat an ABG since her ABG did show some metabolic acidosis, most likely due to her creatinine being high and metabolic related. 7. History of seizure. We will continue her Keppra. Job ID: [id number]
--- NOTE | 2020-01-12 17:55 | CON ---
DATE OF CONSULTATION: 01/12/2020 SERVICE: Nephrology. REASON FOR CONSULTATION: Acute renal failure and hyperkalemia. REQUESTING PHYSICIAN: Dr. Divya Gibson. CHIEF COMPLAINT: Mental status change. HISTORY OF PRESENT ILLNESS: A 74-year-old female with past medical history significant for hypertension, COPD, and right lower quadrant ostomy, admitted on a transfer from [facility] for further evaluation and treatment. The patient reportedly presented at [place] [facility] due to mental status change. History was grossly limited, but there was some concern about fall. Evaluation with CT scan was unremarkable. The patient however was found to have acute elevation in creatinine as well as hyperkalemia. She was also thought to be dehydrated, hence was treated with IV fluid, albuterol, dextrose, and insulin as well as Kayexalate for hyperkalemia. She was subsequently transferred over here for further evaluation. At presentation at [place], initial potassium was 5.8, but repeat earlier on was 6.2. At presentation to this hospital, potassium was 5.8. History is grossly limited. The patient was unable to tell me why she is in the hospital. She also has history of seizure, but there was no evidence or reported history of seizure episode. Initial creatinine on presentation to [facility] was 6.90. This trended downwards to 5.69 on repeat BMP there, but on presentation here, creatinine was 5.22. PAST MEDICAL HISTORY: 1. COPD. 2. Seizure disorder. 3. Chronic kidney disease. 4. Diastolic heart failure. 5. Hypertension. 6. Gastroesophageal reflux disease. 7. Morbid obesity. 8. Chronic pain. 9. Status post colostomy. SURGICAL HISTORY: Colostomy creation. FAMILY HISTORY: Could not be obtained due to the patient's condition. SOCIAL HISTORY: The patient reportedly lives with family at home. She is a former smoker. Denied drug or recreational drug use. ALLERGIES: NO KNOWN DRUG ALLERGIES REPORTED. PRIOR TO HOSPITAL MEDICATIONS: This is unknown, but review of medical records showed that she was on the following when last discharged from the hospital. 1. Budesonide/formoterol (Symbicort) 160/4.5 inhalation b.i.d. 2. Carvedilol 3.125 mg p.o. b.i.d. 3. Gabapentin 300 mg p.o. b.i.d. 4. Keppra 500 mg p.o. b.i.d. 5. Lipitor 20 mg p.o. daily at bedtime. 6. Tramadol 50 mg p.o. b.i.d. p.r.n. for pain. REVIEW OF SYSTEMS: Could not be performed due to the patient's condition. PHYSICAL EXAMINATION: VITAL SIGNS: Temperature 98.3, pulse 97, respiratory rate 18, SpO2 of 100% on room air, blood pressure 108/49. GENERAL: Fatigued, morbidly obese female, in no obvious distress. Afebrile. Anicteric. Acyanotic. HEENT: Normocephalic, atraumatic. Oral mucosa is mildly dry. NECK: Supple with no obvious JVD. CARDIOVASCULAR: Regular rhythm and rate with normal heart sounds 1 and 2. No obvious murmur was appreciated. RESPIRATORY: Fair air entry bilateral, decreased at the bases with scattered rhonchi especially anteriorly. This seems to be positional with little or no rhonchi when seated up posteriorly. GI: Morbidly obese, soft with mild diffuse tenderness. Right lower quadrant ostomy noted. Bowel sound is normoactive. EXTREMITIES: Grossly normal looking with no obvious edema or erythema. BAND STRAIGHTENER: Conscious and awake. Oriented to person and place at least. Face is symmetrical. Moves all extremities, but weakly. DIAGNOSTIC DATA: Most current CBC showed WBC count of 8.3, hemoglobin of 9.6, MCV of 98.9, platelets of 227. Chemistry showed sodium 132, potassium 5.8, chloride 110, CO2 of 12, BUN 87, creatinine 5.22, glucose 106, calcium 8.5. Total bilirubin 0.2, AST 10, ALT less than 7, alkaline phosphatase 68, total protein 7.6, albumin 3.3. Of note, the patient had creatinine of 1.32 on June 07, 2019, but on presentation earlier this morning, it was 6.9, which has improved to 5.22 currently. Urinalysis performed earlier this morning at [place] showed yellow clear urine with pH of 5.0 with specific gravity of 1.015, negative protein, glucose, ketone, blood, nitrite, and bilirubin. Leukocyte esterase was also negative. Microscopy, however, was not performed. Chest x-ray performed earlier today at [place] showed no acute cardiopulmonary finding. There was no airspace density, pulmonary edema, pneumothorax, or cardiomegaly. CT scan of the brain also performed showed no acute intraparenchymal hemorrhage or mass lesion. EKG showed normal sinus rhythm with rate of 96. No obvious T-wave or ST-segment changes appreciated. ASSESSMENT: 1. Acute renal failure: This seems to be related to hemodynamic factors. The patient was hypotensive on presentation. She also appear clinically dry, suggestive of volume depletion. Creatinine already is down from 6.90 to 5.22 with IV fluid therapy. 2. CKD, stage 3/4. 3. Metabolic acidosis. 4. Hyperkalemia: Due to chronic kidney disease and metabolic acidosis. 5. Presumed volume depletion/dehydration. Etiology however is unclear. The patient denied nausea or vomiting. 6. Mental status change: Etiology is unclear. May be related to uremia. 7. Hyponatremia: Most likely due to appropriate ADH in the setting of volume depletion. 8. Anemia of chronic kidney disease. PLAN: 1. We will start the patient on IV fluid therapy with sodium bicarbonate infusion. 2. We will also give another dose of Kayexalate. 3. We will also get urine electrolytes as well as CK level to rule out rhabdomyolysis in this patient who has history of seizure disorder. 4. We will also get lactic acid and arterial blood gas. 5. We will recheck electrolytes later in the day. 6. Further treatment to follow depending on hospital course. Many thanks for involving us in the care of this patient. We will follow along with you. Job ID: [id number]
[2020-01-12] MEDS ORDERED: Atorvastatin Calcium 20 MG TAB PO SCH (21:00)
[2020-01-12] MEDS ORDERED: Gabapentin 300 MG CAP PO SCH (21:00)
[2020-01-12] MEDS ORDERED: Mometasone 200 MCG/Formoterol 5 MCG 120 PUFF INHALER INH SCH (21:00)
[2020-01-13] MEDS ORDERED: methylPREDNISolone Sod Succ 40 MG VIAL IVP SCH (09:00)
[2020-01-13 13:55] LABS: SARS-CoV-2 MS2 Positive; SARS-CoV-2 N Gene Negative; SARS-CoV-2 S Gene Negative; SARS-CoV-2 by NAA Not Detected (NotDetected); SARS-CoV-2 orf1ab Negative
== END 2020-01-12 17:48 | disposition short-term general hospital (02) | DRG 682 ==
LOC: ERS 10:47 → ERHOLD 11:53
PROVIDERS: ADMIT Internal Medicine; ATTEND Internal Medicine
DX: N17.9 Acute kidney failure, unspecified (principal); G93.41 Metabolic encephalopathy; E87.2 Acidosis; I13.0 Hypertensive heart and chronic kidney disease with heart failure and stage 1 through stage 4 chronic kidney disease, or unspecified chronic kidney disease; I50.32 Chronic diastolic (congestive) heart failure; J44.1 Chronic obstructive pulmonary disease with (acute) exacerbation; E87.1 Hypo-osmolality and hyponatremia; E78.5 Hyperlipidemia, unspecified; E78.00 Pure hypercholesterolemia, unspecified; N18.4 Chronic kidney disease, stage 4 (severe); E86.0 Dehydration; E87.5 Hyperkalemia; G40.909 Epilepsy, unspecified, not intractable, without status epilepticus; E66.01 Morbid (severe) obesity due to excess calories; E11.22 Type 2 diabetes mellitus with diabetic chronic kidney disease; E86.9 Volume depletion, unspecified; G89.29 Other chronic pain; Z93.3 Colostomy status; Z79.899 Other long term (current) drug therapy; Z20.828 Contact with and (suspected) exposure to other viral communicable diseases; Z87.891 Personal history of nicotine dependence; D63.1 Anemia in chronic kidney disease
CPT/HCPCS: 36415; 76770; 82550; 82805; 83605; 83880; 87635; 93005; 94640; 94760; J2001; J2930; J3490; J7611; J7620; U0003

== ENCOUNTER 2020-02-07 10:50 | Inpatient (IN) | payer MEDICARE, MEDICAID ==
[2020-02-07] MEDS ORDERED: Cefepime 2 GM VIAL ONE (11:22)
[2020-02-07] MEDS ORDERED: Vancomycin 1 GM/200 ML BAG ONE (11:22)
--- NOTE | 2020-02-07 11:55 | RAD ---
Chest AP view INDICATION: History of Covid positive test COMPARISON: Prior exam dated February 04, 2020 FINDINGS: Lungs: There is worsening airspace disease of both lower lobes. Cardiac silhouette: There is now mild cardiomegaly. Pulmonary vasculature: There is increased pulmonary vascular congestion. Pleural spaces: No pleural effusion or pneumothorax is demonstrated. Upper abdomen: No abnormality seen. Osseous structures: No acute osseous abnormality. Additional findings: None. IMPRESSION: There is mild cardiomegaly with worsening pulmonary vascular congestion. There is increased airspace disease of both lower lobes. Findings may reflect sequela of worsening airspace edema and CHF; however, pneumonia is not excluded. Recommend continued follow-up.
[2020-02-07 11:59] LABS: #Lymphocytes 0.9 thou/uL (1.20-3.40); #Monocytes 0.4 thou/uL (0.11-0.59); #Neutrophils 5.1 thou/uL (1.40-6.50); %Basophils 0.2 % (0.0-1.0); %Eosinophils 0.1 % (0.0-10.0); %Lymphocytes 13.7 % (21.0-51.0); %Monocytes 5.6 % (0.0-10.0); %Neutrophils 80.3 % (42.0-75.0); Hemoglobin 8.4 g/dL (12.0-16.0); Mean Corpuscular HGB CONC 30.4 g/dL (32.0-36.0); Mean Corpuscular Hemoglobin 29.4 pg (27.0-31.0); Mean Corpuscular Volume 96.9 fL (78.0-98.0); Mean Platelet Volume 6.7 fL (7.4-10.4); Platelet Count 276 thou/uL (130-400); Red Blood Cell (RBC) Count 2.86 mill/uL (4.20-5.40); White Blood Cell (WBC) Count 6.4 thou/uL (4.8-10.8)
[2020-02-07 12:19] LABS: ALT (SGPT) Less than 7 U/L (8-55); AST (SGOT) 13 U/L (5-34); Albumin 3.2 g/dL (3.4-4.8); Alkaline Phosphatase 54 U/L (40-110); Anion Gap 13 mmol/L (10-20); BUN (Urea Nitrogen) 19 mg/dL (9.8-20.1); Bilirubin, Total 0.4 mg/dL (0.2-1.2); Calc. Creatinine Clearance 0 mL/min (70-130); Calcium 8.3 mg/dL (7.8-10.44); Carbon Dioxide 24 mmol/L (23-31); Chloride 109 mmol/L (98-107); Estimated GFR-MDRD 52; Globulin 3.9 g/dL (2.4-3.5); Glucose 97 mg/dL (83-110); Potassium 3.7 mmol/L (3.5-5.1); Protein, Total 7.1 g/dL (6.0-8.3); Sodium 142 mmol/L (136-145)
[2020-02-07 12:22] LABS: Bacteria/HPF None Seen HPF (None Seen); Bilirubin Negative (Negative); Blood, Urine Trace (Negative); Clarity Clear (Clear); Glucose, Urine (Dipstick) Normal (Negative); Ketone, Urine Negative (Negative); Leukocyte Negative Leu/uL (Negative); Nitrite Negative (Negative); Protein, Urine (Dipstick) 50 mg/dL (Neg-Trace); RBC/HPF 0-3 HPF (0-3); Specific Gravity, Urine 1.015 (1.002-1.036); Squamous Epithelial 0-3 HPF (0-3); Urobilinogen Normal mg/dL (Less than 2); WBC/HPF 0-3 HPF (0-3); pH, Urine 5.5 (5.0-9.0)
[2020-02-07 12:28] LABS: Band 14 % (5-11); Eosinophils 1 % (0-10); Hypochromia SLIGHT = 6-15 cells (100X) (0-5/hpf); Lymphocytes 11 % (21-51); MDiff Complete? YES; Monocytes 5 % (0-10); Neutrophil 68 % (42-75); Platelet Morphology Comment Appears Adequate; Polychromasia SLIGHT = 2-3 cells (100X) (0-2/hpf); Reactive Lymphocytes 1 % (0-10)
--- NOTE | 2020-02-07 13:47 | CT ---
CT OF THE THORAX WITHOUT IV CONTRAST INDICATION: Cough with shortness of breath COMPARISON: Prior CT PE examination dated November 25, 2017 FINDINGS: LUNGS: There are multiple scattered areas of tree-in-bud nodularity in the right lower lobe and right middle lobe that has increased in prominence from the prior exam. There are areas of subsegmental volume loss involving both lung bases. There is a 2.3 x 1.3 cm nodular prominence seen adjacent to th e epicardial fat pad within the lower lingula that appears slightly more pronounced than on the prior examination may reflect a slightly increased area of rounded atelectasis. There is a rounded no dular prominence involving the right infrahilar region is stable measuring 2.5 cm and may reflect an accentuated lower right pulmonary vein or prominent lymph node. Pleural spaces: Clear Lymph nodes: No pathologically enlarged lymph nodes. Heart and great vessels: There are mitral annular calcifications. There are prominent coronary artery and thoracic aortic calcifications. Upper abdomen: There is nonspecific left-sided perinephric stranding. There is stable mild wedge comp ression fractures T4, T5 and T6 that appears similar to the comparison. Osseous structures: No acute osseous abnormality. IMPRESSION: 1. Numerous scattered tree-in-bud nodules within the right middle lobe and right lower lobe have incr eased in prominence from the prior CT examination in 2018. Findings are suspicious for worsening respiratory bronchiolitis. Metastatic disease is felt to be less likely. 2. Increased subpleural nodule in the lower lingula measuring 2.3 x 1.3 cm is most suspicious for an area of slightly increased rounded atelectasis. Short-term CT follow-up without IV contrast is recommended. 3. Nonspecific left-sided perinephric stranding. Recommend correlation with the clinical examination and urinary laboratories evaluation for pyelonephritis. 3. Stable soft tissue prominence seen in the right infrahilar region possibly related to a persistent ly prominent right infrahilar lymph node. This has been stable since 2013.
[2020-02-07] MEDS ORDERED: Dexamethasone 10 MG/ML VIAL ONE (14:00)
[2020-02-07] MEDS ORDERED: Bisacodyl 10 MG SUPP PR PRN (16:02)
[2020-02-07] MEDS ORDERED: Acetaminophen 325 MG TAB PO PRN (16:02)
[2020-02-07] MEDS ORDERED: Guaifenesin DM 100-10/5 ML UDCUP PO PRN (16:02)
[2020-02-07] MEDS ORDERED: Ondansetron PF 4 MG/2 ML Vial IVP PRN (16:02)
[2020-02-07] MEDS ORDERED: Calcium Carbonate 500 MG ChewTAB PO PRN (16:02)
[2020-02-07] MEDS ORDERED: Senokot S 8.6-50 MG TAB PO PRN (16:02)
[2020-02-07 16:28] LABS: Troponin I 0.017 ng/mL (< 0.028)
[2020-02-07 17:55] VITALS: BMI 36.1
--- NOTE | 2020-02-07 18:09 | HP ---
REASON FOR ADMISSION: Respiratory distress, uncontrolled hypertension, tachycardia. HISTORY OF PRESENTING ILLNESS: Please note, majority of this history is obtained by talking to ER physician and prior medical records as the patient likely has some form of dysarthria and difficulty verbalizing. She likely has had prior history of CVA as well. She was discharged yesterday from [facility] after being hospitalized there for COVID pneumonia. The patient saturated well on room air and was discharged home. This morning, her sister brought her to emergency room as she was having more trouble breathing. On arrival, the patient had systolic blood pressures going up to 210. She was also tachycardic with heart rates into 130s. She was given 2 L of bolus fluid, despite which her heart rate remained above 100. The patient was closely observed in the ER for nearly 2 hours, despite which she did not improve and a decision was made to hospitalize her. PAST MEDICAL AND SURGICAL HISTORY: Morbid obesity, seizure disorder, COPD, chronic kidney disease stage 3/4, recent diagnosis of COVID pneumonia, gait instability, history of colostomy, chronic pain syndrome, osteoarthritis, ORIF for right patellar fracture. FAMILY HISTORY: There is history of diabetes in the family. Maternal side has history of cancer, which is unknown. This is from prior records. Again, the patient has hard time articulating. She does not abuse alcohol or drugs. She lives with her sisters. CURRENT MEDICATIONS: The patient was discharged home on; 1. Symbicort inhaler 2 puffs twice daily. 2. Aspirin 325 mg p.o. daily. 3. Sodium bicarb 650 mg p.o. twice daily. 4. Carvedilol 3.125 mg twice daily. 5. Gabapentin 300 mg twice daily. 6. Keppra 500 mg twice daily. 7. Lipitor 20 mg p.o. at bedtime. 8. Norvasc 5 mg daily. 9. Vitamin C 1000 mg p.o. daily. 10. Vitamin D3, 400 units p.o. daily. 11. Zinc sulfate 220 mg p.o. daily. 12. Allopurinol 100 mg p.o. daily. ALLERGIES: NO KNOWN DRUG ALLERGIES. REVIEW OF SYSTEMS: Cannot be obtained as the patient has difficulty articulating and understanding. PHYSICAL EXAMINATION: GENERAL: The patient is a 74-year-old female, who is currently not in any acute distress. VITAL SIGNS: Blood pressure 204/106, pulse 100 per minute, respiratory rate 22 per minute, temperature 99 degrees Fahrenheit, and saturating 92% on 2 L nasal cannula. NECK: Supple. There is elevated JVD. HEENT: Eyes; extraocular muscles are intact. Pupils are reacting to light. Oral cavity, mucous membranes are dry. No exudates or congestion. CARDIOVASCULAR SYSTEM: S1 and S2 heard. Tachycardic. No murmur. RESPIRATORY SYSTEM: Air entry 1+ bilateral. Scattered rhonchi plus there are rales in the infra-axillary area. ABDOMEN: Soft. Colostomy has stool in it. No rigidity or guarding. Bowel sounds are heard. EXTREMITIES: There is peripheral edema. No calf tenderness. VASCULAR SYSTEM: Peripheral pulses 1+ bilateral. No ischemic ulcers or gangrene. The patient has severe osteoarthritis of the knees. CENTRAL NERVOUS SYSTEM: No gross focal deficits seen as the patient moves all 4 extremities. She has difficulty articulating and speaking. It is unclear if the patient has underlying memory issues versus prior history of CVA. PSYCHIATRIC SYSTEM: No obvious hallucinations or delusions. LABORATORY DATA: CT chest done shows numerous tree-in-bud nodules within the right middle lobe, right lower lobe, findings are suspicious for worsening respiratory bronchiolitis. There is subpleural nodule in the lower lingula, measuring 2.3 x 1.3 cm. There is nonspecific left-sided perinephric stranding. UA shows no evidence of infection. BNP 124. Albumin is 3.2, BUN 19, creatinine 1.23. Lactic acid 1.3. Liver enzymes within normal limits. Troponin x2 negative. D-dimer is 2.62. White count of 6, hemoglobin and hematocrit of 8 and 27, platelet count 276, with 80% neutrophils, MCV is 96. CLINICAL IMPRESSION AND PLAN: The patient will be admitted to telemetry for persistent tachycardia and uncontrolled hypertension. She also has history of COVID. The patient is stable on 2 L nasal cannula. She was just discharged yesterday from [facility]. The patient is still on steroids and we will continue the same. The patient's shortness of breath likely is multifactorial with obesity hypoventilation and likely obstructive sleep apnea contributing to her shortness of breath. Her chest x-ray does not appear to be far worse than before. The patient has chronic kidney disease and is not a candidate for remdesivir. We will continue her aspirin, Lipitor, carvedilol, Neurontin, Keppra, Symbicort, zinc sulfate as before. DuoNebs and steroids have been initiated. PT and OT evaluations will be requested. Likely, the patient will need 10 days of placement for further recuperation prior to going home. We will continue airborne and droplet precautions in view of recent diagnosis of COVID. The patient's prognosis is guarded, given her obesity, likely poor functional status, severe osteoarthritis, and multiple medical issues in addition to COVID. Job ID: [id number]
[2020-02-07 19:06] LABS: Troponin I 0.028 ng/mL (< 0.028)
[2020-02-07] MEDS: Gabapentin 300 MG CAP PO SCH (19:54)
[2020-02-07] MEDS: Carvedilol 3.125 MG TAB PO SCH (19:55)
[2020-02-07] MEDS: levETIRAcetam 500 MG TAB PO SCH (19:55)
[2020-02-07] MEDS: Atorvastatin Calcium 20 MG TAB PO SCH (19:55)
--- NOTE | 2020-02-07 20:14 | CT ---
NONCONTRAST CT HEAD: 02/07/20 HISTORY: Confusion, COVID positive. Dysarthria. COMPARISON: 01/12/20 and 04/10/19. FINDINGS: There is a stable hyperdense lesion in the midline at level of the foramen of Monro most compatible w ith a colloid cyst. This is unchanged in size or appearance. There is no evidence of hydrocephalus. M ild cerebral volume loss is present. Diminished attenuation is again seen in the periventricular white matter which is nonspecific but lik lc reflective of chronic small vessel ischemic changes. There is no evidence of an acute cortical in farction, hemorrhage, mass effect, or midline shift. CT of the head is overall stable when compared t o prior study. IMPRESSION: 1. No acute intracranial abnormality demonstrated. 2. Stable hyperdense mass at the foramen of Monro most compatible with a colloid cyst. 3. Chronic small vessel ischemic changes and cerebral volume loss. POS: VANESSA
[2020-02-07] MEDS ORDERED: methylPREDNISolone Sod Succ 40 MG VIAL IVP SCH (22:00)
[2020-02-07] MEDS: Mometasone 200 MCG/Formoterol 5 MCG 120 PUFF INHALER INH SCH (23:27)
--- NOTE | 2020-02-08 00:55 | CON ---
DATE OF CONSULTATION: 02/07/2020 REASON: COVID pneumonia. HISTORY OF PRESENT ILLNESS: A 74-year-old patient whom I had seen in 2017 when she presented with a history of CHF type 2 diabetes, hypertension, and recurrent lower GI bleeds which culminated in colectomy and ileostomy placement. By April 2019, she had been on home O2 for management of hypoxemia associated with COPD. Echocardiogram at that time showed an ejection fraction of 55% to 60%, with left ventricular hypertrophy and diastolic dysfunction with mild aortic stenosis. On June 2019, she was admitted with an exacerbation of COPD with hypoxic respiratory failure. On January 2020, she developed altered mental state. She was found hyperkalemic, managed with Kayexalate, insulin, and inhaled albuterol. Carbon dioxide was 15 and creatinine 6.9. She was started on sodium bicarbonate drip. She was discharged on Keppra, gabapentin, Coreg, Symbicort, Lipitor, tramadol, and sodium bicarbonate 650 mg. Nephrology evaluation was obtained and their impression was acute renal failure, probably due to hemodynamic factors. On February 03, she had another admission and discharge diagnosis was acute gout flare, physical deconditioning, COPD. She basically had a fever on arrival of 101.3. Blood cultures were negative. Urine culture positive for E faecalis. COVID test was negative. It was felt the fever was due to urinary tract infection. Her urinalysis had greater than 50 wbc's. She had a renal ultrasound which showed normal cortical echotexture without hydronephrosis. Bladder was normal. On January 11, her chest x-ray demonstrated no acute pulmonary findings. Then, the patient presented back to the emergency room with a temperature 101, pulse 102, O2 saturations were 88% on room air and improved to 100% 2 L. She was a little bit hypotensive. Initial BP 89/45, pulse 121, O2 saturations were 95 on 2 L. Mucous membranes were dry. The breath sounds described as clear. Heart examination was described as normal. Abdomen was nontender. Ileostomy was present. She had a chest x-ray on admission, which demonstrated normal heart size, atelectases in the right lower lung, but no other abnormalities. At this time, a [id number] was positive. The patient was admitted on the and she was given Decadron but not remdesivir plasma. I will think she is eligible for remdesivir because of her renal function anyways. Creatinine was 1.9 on admission, improved down to 1.5. She stayed there two days and then was sent back home with no medication changes. Unfortunately, she came right back to this hospital with worsening dyspnea, chest discomfort, she was tachycardic and tachypneic, had some intermittently productive cough. No abdominal pain. Currently, Ms. Du is awake. She is a bit confused. She really could not give me a history. Could not recall when she got sick, very limited ability to provide cogent account of her illness. Right now, she denies any headaches but any questions I ask her, she has a hard time answering. She has a hard time focusing and when I ask her where she was, after a little while told me she was in the hospital, but could not tell me which one, so everything in the review of system was obtained from the nurse. When she arrived in the floor this time, her ileostomy was open and there was stool all over her clothing and body and sheets. PAST MEDICAL HISTORY: COPD, CKD stage 3, cognitive dysfunction, hypertension, seizure disorder, gout, cardiomyopathy and now SARS-COV-2 infection. ALLERGIES: NONE. FAMILY HISTORY: Type 2 diabetes, she also has had a lower GI bleed which culminated in hemicolectomy with ileostomy placement. MEDICATIONS: At home, 1. Symbicort. 2. Aspirin. 3. Sodium bicarbonate. 4. Coreg. 5. Gabapentin. 6. Keppra. 7. Lipitor. 8. Norvasc. 9. Vitamin D. 10. Zinc sulfate. 11. Allopurinol. 12. Here, she is receiving methylprednisolone 20 mg q.8, Keppra, guaifenesin, gabapentin, enoxaparin, Coreg, aspirin, ascorbic acid, Norvasc, allopurinol. PHYSICAL EXAMINATION: VITAL SIGNS: Temperature now 97.3, she is saturating 98% to 100% on room air O2, she is a little bit on tachypneic side. She seems to have a little bit of delayed or prolonged expiratory phase of her breathing. GENERAL: She is chronically ill. She has a hard time in communicating and answering questions or following commands. She has a stage II area of breakdown on the presacral region. The ileostomy appears to be intact. Peripheral IV access no lymphadenopathy. HEENT: Ocular movements conjugate. Oral cavity still with quite a few teeth in place with some decay. Oral mucosa is moist. There is jugular vein distention noted. LUNGS: With prolonged expiratory phase. Faint wheezing noted. No crackles. HEART: S1, S2 without murmurs. No S3 or S4. ABDOMEN: With very prominent panniculus, but not tender. No distention. No ascites. No bladder distention. She is diffusely weak. She is able to move extremities. She has areas of hyperkeratosis in the lateral aspect of her skin of the lower extremities and dry skin. There is a platelike area of hyperpigmentation and hyperkeratosis in the lateral aspect of the right thigh distal close to the knee. Pulses are diminished in dorsalis pedis but palpable. She is awake, knows her name and she knew she was in the hospital but that for a long time to figure that out and could not tell me the name. Certainly could not tell me the date, so she had a lot of difficulty with recollection, appeared somewhat bewildered. LABORATORY DATA: Urinalysis now is completely clear. White cell count 6.4, hemoglobin 8.4, platelets 276 with 80% neutrophils and creatinine is 1.23 close to her baseline. GFR is 52. Albumin 3.2. BNP was 124. ASSESSMENT: 1. History of chronic obstructive pulmonary disease. 2. Hypertension. 3. Chronic kidney disease, stage 3. 4. Obesity. 5. Seizure disorder. 6. Lower GI bleed which culminated in the hemicolectomy and ileostomy. 7. Now, SARS-CoV-2 positive PCR. DISCUSSION: The patient has no ground-glass opacities in her CT scan of chest. Only a few areas that might suggest bronchiolitis which might be chronic. She usually has O2 supplementation at home for chronic obstructive lung disease, and she uses it intermittently. In addition to that, there is some element of cognitive dysfunction. The timing of her SARS-CoV-2 infection is not clear. At this point in time, I do not think she merits adding corticosteroid treatment for SARS-CoV-2 and either remdesivir. It is possible that the other components of her chronic illnesses are contributing more for the symptoms that led to readmission than the SARS-COV2 finding. We will check her antibody level to see if she has already started to produce antibodies which would indicate at least 8-14 days of illness compared to a much younger stage of her COVID-19 infection if antibodies are absent and discontinue methylprednisolone. She must have a high output ileostomy, which may be in part responsible for her electrolyte abnormalities and recurrent episodes of renal insufficiency due to hypovolemia. If that is the case, then she will have recurrent episodes of volume depletion and readmission for electrolyte abnormalities and hypovolemia in the future. Job ID: [id number] [id number]
[2020-02-08] MEDS: Albuterol 200 PUFF (6.7GM INHALER) INH SCH ×4 (01:59→18:07)
[2020-02-08 06:01] LABS: #Lymphocytes 0.9 thou/uL (1.20-3.40); #Monocytes 0.3 thou/uL (0.11-0.59); #Neutrophils 2.8 thou/uL (1.40-6.50); %Basophils 0.3 % (0.0-1.0); %Eosinophils 0.1 % (0.0-10.0); %Lymphocytes 22.9 % (21.0-51.0); %Monocytes 7.2 % (0.0-10.0); %Neutrophils 69.5 % (42.0-75.0); Hemoglobin 7.9 g/dL (12.0-16.0); Mean Corpuscular HGB CONC 32.1 g/dL (32.0-36.0); Mean Corpuscular Hemoglobin 31.8 pg (27.0-31.0); Mean Corpuscular Volume 99.1 fL (78.0-98.0); Mean Platelet Volume 6.4 fL (7.4-10.4); Platelet Count 189 thou/uL (130-400); RBC Distribution Width 13.9 % (11.5-14.5); Red Blood Cell (RBC) Count 2.48 mill/uL (4.20-5.40)
[2020-02-08] MEDS: Mometasone 200 MCG/Formoterol 5 MCG 120 PUFF INHALER INH SCH ×2 (06:13→18:07)
[2020-02-08 06:19] LABS: Anion Gap 11 mmol/L (10-20); BUN (Urea Nitrogen) 18 mg/dL (9.8-20.1); Calc. Creatinine Clearance 73 mL/min (70-130); Calcium 7.6 mg/dL (7.8-10.44); Carbon Dioxide 24 mmol/L (23-31); Chloride 111 mmol/L (98-107); Estimated GFR-MDRD 64; Glucose 117 mg/dL (83-110); Potassium 3.9 mmol/L (3.5-5.1); Sodium 142 mmol/L (136-145)
[2020-02-08] MEDS: Amlodipine 5 MG TAB PO SCH (07:46)
[2020-02-08] MEDS: Allopurinol 100 MG TAB PO SCH (07:46)
[2020-02-08] MEDS: Ascorbic Acid 500 mg Chewable Tablet PO SCH (07:46)
[2020-02-08] MEDS: Aspirin 325 MG TAB PO SCH (07:46)
[2020-02-08] MEDS: Cholecalciferol (Vitamin D3) 400 UNITS TAB PO SCH (07:46)
[2020-02-08] MEDS: Enoxaparin Sodium 40 MG/0.4 ML SYRINGE SC SCH (07:46)
[2020-02-08] MEDS: Carvedilol 3.125 MG TAB PO SCH ×2 (07:46→20:19)
[2020-02-08] MEDS: Zinc Sulfate 220 MG CAP PO SCH (07:47)
[2020-02-08] MEDS: Gabapentin 300 MG CAP PO SCH ×2 (07:47→20:19)
[2020-02-08] MEDS: levETIRAcetam 500 MG TAB PO SCH ×2 (07:47→20:19)
--- NOTE | 2020-02-08 11:24 | PDOC.HOSPP ---
- Subjective Encounter Date: 02/08/20 Encounter Time: 08:10 Subjective: Patient seen and examined bedside today, patient does not have any complaint, she is on room air, - Objective Vital Signs & Weight: Vital Signs (12 hours) Temp Pulse Resp BP Pulse Ox 02/08/20 08:00 98.4 F 74 20 124/57 L 100 02/08/20 04:00 97.6 F 83 21 H 142/66 H 98 02/07/20 23:25 97.9 F 75 20 100 Weight Weight 210 lb 4.8 oz I&O: 02/07/20 02/08/20 02/09/20 06:59 06:59 06:59 Intake Total 120 240 Output Total 600 100 Balance -480 140 Result Diagrams: 02/08/20 05:48 02/08/20 05:48 Radiology Reviewed by me: Yes EKG Reviewed by me: Yes Hospitalist ROS - Review of Systems Constitutional: reports: weakness. denies: fever, chills, sweats, malaise, other ENT: denies: ear pain, ear discharge, nose pain, nose discharge, nose congestion, mouth pain, mouth swelling, throat pain, throat swelling, other Respiratory: denies: cough, dry, shortness of breath, hemoptysis, SOB with excertion, pleuritic pain, sputum, wheezing, other Cardiovascular: denies: chest pain, palpitations, orthopnea, paroxysmal noc. dyspnea, edema, light headedness, other Gastrointestinal: denies: nausea, vomiting, abdominal pain, diarrhea, constipation, melena, hematochezia, other Genitourinary: denies: dysuria, frequency, incontinence, hematuria, retention, other Musculoskeletal: denies: neck pain, shoulder pain, arm pain, back pain, hand pain, leg pain, foot pain, other - Medication Medications: Active Medications Generic Name Dose Route Start Last Admin Trade Name Freq PRN Reason Stop Dose Admin Albuterol Sulfate 2 puff 02/08/20 01:00 02/08/20 06:13 Albuterol 200 Puff (6.7gm Inhaler) INH 2 puff [id number] NATASHA Administration Allopurinol 100 mg 02/08/20 09:00 02/08/20 07:46 Allopurinol 100 Mg Tab PO 100 mg DAILY NATASHA Administration Amlodipine Besylate 5 mg 02/08/20 09:00 02/08/20 07:46 Amlodipine 5 Mg Tab PO 5 mg DAILY NATASHA Administration Ascorbic Acid 1,000 mg 02/08/20 09:00 02/08/20 07:46 Ascorbic Acid 500 Mg Chewable Tablet PO 1,000 mg DAILY NATASHA Administration Aspirin 325 mg 02/08/20 09:00 02/08/20 07:46 Aspirin 325 Mg Tab PO 325 mg DAILY NATASHA Administration Atorvastatin Calcium 20 mg 02/07/20 21:00 02/07/20 19:55 Atorvastatin Calcium 20 Mg Tab PO 20 mg HS NATASHA Administration Carvedilol 3.125 mg 02/07/20 21:00 02/08/20 07:46 Carvedilol 3.125 Mg Tab PO 3.125 mg BID [facility] Administration Cholecalciferol 400 units 02/08/20 09:00 02/08/20 07:46 Cholecalciferol (Vitamin D3) 400 Units Tab PO 400 units DAILY NATASHA Administration Enoxaparin Sodium 40 mg 02/08/20 09:00 02/08/20 07:46 Enoxaparin Sodium 40 Mg/0.4 Ml Syringe SC 40 mg 09 [facility] Administration Gabapentin 300 mg 02/07/20 21:00 02/08/20 07:47 Gabapentin 300 Mg Cap PO 300 mg BID NATASHA Administration Levetiracetam 500 mg 02/07/20 21:00 02/08/20 07:47 Levetiracetam 500 Mg Tab PO 500 mg BID NATASHA Administration Mometasone Furoate/Formoterol Fumar 1 puff 02/07/20 18:30 02/08/20 06:13 Mometasone 200 Mcg/Formoterol 5 Mcg 120 Puff Inhaler INH 1 puff BID-RT NATASHA Administration Zinc Sulfate 220 mg 02/08/20 09:00 02/08/20 07:47 Zinc Sulfate 220 Mg Cap PO 220 mg DAILY NATASHA Administration - Exam General Appearance: NAD, awake alert Eye: PERRL, anicteric sclera ENT: normocephalic atraumatic, no oropharyngeal lesions Neck: supple, symmetric, no JVD Heart: RRR, no murmur, no gallops, no rubs Respiratory: no wheezes, no rales, no ronchi Gastrointestinal: soft, non-tender, non-distended, normal bowel sounds Gastrointestinal - other findings: Obesity Extremities: no cyanosis, no clubbing, no edema Skin: normal turgor, no lesions Neurological: no new deficit Musculoskeletal: normal tone, normal strength Psychiatric: normal affect, normal behavior Hosp A/P (1) Acute respiratory failure with hypoxia Code(s): J96.01 - ACUTE RESPIRATORY FAILURE WITH HYPOXIA Status: Acute (2) COVID-19 Code(s): U07.1 - COVID-19 Status: Acute (3) COPD (chronic obstructive pulmonary disease) Status: Chronic (4) Chronic renal failure, stage 3 (moderate) Code(s): N18.3 - CHRONIC KIDNEY DISEASE, STAGE 3 (MODERATE) * DO NOT USE * Status: Chronic (5) DM type 2 (diabetes mellitus, type 2) Status: Chronic (6) H/O ileostomy Code(s): Z98.89 - OTHER SPECIFIED POSTPROCEDURAL STATES * DO NOT USE * Status: Chronic (7) HTN (hypertension) Code(s): I10 - ESSENTIAL (PRIMARY) HYPERTENSION Status: Chronic (8) Macrocytic anemia Code(s): D53.9 - NUTRITIONAL ANEMIA, UNSPECIFIED Status: Chronic (9) Obesity (BMI 30-39.9) Code(s): E66.9 - OBESITY, UNSPECIFIED Status: Chronic (10) Parastomal hernia Code(s): K43.5 - PARASTOMAL HERNIA WITHOUT OBSTRUCTION OR GANGRENE Status: Chronic (11) Seizure Code(s): R56.9 - UNSPECIFIED CONVULSIONS Status: Resolved - Plan old records reviewed/req Medication reviewed and continued per symptomatic and supportive care Continue PT OT Follow-up on COVID-19 IgG antibody Expecting discharge in next 24 hours.
[2020-02-08 13:16] LABS: SARS-CoV-2 IgG Ab Non-Reactive (NonReactive); SARS-CoV-2 IgG Index 0.03 S/CO (< 1.40)
--- NOTE | 2020-02-08 17:50 | PRG ---
DATE OF SERVICE: 02/08/2020 SUBJECTIVE: Ms. Du does not appear to be in any distress. Right now she has difficulty in providing review of systems because of cognitive issues. OBJECTIVE: VITAL SIGNS: She has been afebrile. She is not tachycardic, saturating 97% on room air. LUNGS: Fairly clear. HEART: S1, S2, regular rate. ABDOMEN: Soft, not distended. LABORATORY DATA: White cell count 4.0, hemoglobin 7.9, platelets 189. Creatinine 1.02. SARS-CoV antibody was negative. ASSESSMENT AND DISCUSSION: History of chronic obstructive lung disease, hypertension, chronic kidney disease stage 3, obesity, seizure disorder, lower GI bleed, which culminated in hemicolectomy and ileostomy, possible high-output ileostomy and now SARS-CoV2 positive PCR. The patient has not a lot of respiratory tract manifestations yet. The negative antibody suggests that this is within the first week of illness. So going forward, we may still see deterioration which may happen in the next 7 to 14 days, which is the unfortunate situation with this infection. The delayed aspect of its manifestations. In terms of disposition, evidently once the reason for her admission has resolved, she can be monitored at a different setting, but this monitoring will have to continue for the foreseeable future due to the early stage of her illness at this moment. Job ID: [id number]
[2020-02-08] MEDS: Atorvastatin Calcium 20 MG TAB PO SCH (20:19)
[2020-02-09] MEDS: Albuterol 200 PUFF (6.7GM INHALER) INH SCH ×3 (01:55→11:28)
[2020-02-09] MEDS: Mometasone 200 MCG/Formoterol 5 MCG 120 PUFF INHALER INH SCH (05:52)
[2020-02-09] MEDS: Allopurinol 100 MG TAB PO SCH (07:11)
[2020-02-09] MEDS: Enoxaparin Sodium 40 MG/0.4 ML SYRINGE SC SCH (07:11)
[2020-02-09] MEDS: Ascorbic Acid 500 mg Chewable Tablet PO SCH (07:11)
[2020-02-09] MEDS: Aspirin 325 MG TAB PO SCH (07:11)
[2020-02-09] MEDS: Amlodipine 5 MG TAB PO SCH (07:11)
[2020-02-09] MEDS: Cholecalciferol (Vitamin D3) 400 UNITS TAB PO SCH (07:11)
[2020-02-09] MEDS: Carvedilol 3.125 MG TAB PO SCH (07:11)
[2020-02-09] MEDS: Gabapentin 300 MG CAP PO SCH (07:12)
[2020-02-09] MEDS: levETIRAcetam 500 MG TAB PO SCH (07:12)
[2020-02-09] MEDS: Zinc Sulfate 220 MG CAP PO SCH (07:12)
--- NOTE | 2020-02-09 10:54 | PDOC.DS.DS ---
Provider - Provider Date of Admission: 02/07/20 15:20 Date of Discharge: 02/09/20 Admitting Provider: Case Austin MD Consultations: Infectious Disease Primary Care Physician: Namita Mo Course - Hospital Course Hospital Course: 74-year-old female who was recently hospitalized at [facility] where she was treated for Covid pneumonia, she was discharged home and immediately she came back to hospital, when she arrived to emergency room she was hypotensive and tachycardic, during this admission we consulted Dr. Brownlee, patient had a Covid IgG antibody negative, patient was on room air, patient has physical deconditioning and that is why we offered her to go to [facility] but patient refused to go to [facility], at this point her troponin negative, she is on room air, she is also afebrile and hemodynamically stable. Patient decided to go home with home health. With help of case management coordinator we are arranging home health before discharge. This patient is at high risk for recurrent admission. Resuscitation Status: 02/07/20 15:57 Resuscitation Status Routine Resuscitation Status: FULL: Full Resuscitation - Labs Lab Results: 02/08/20 05:48 02/08/20 05:48 Abnormal Lab Results - Last 48 hrs 02/07/20 11:10: Urine Protein 50 A, Urine Blood Trace A 02/07/20 11:30: Chloride 109 H, Creatinine 1.23 H, ALT Less than 7 L, Albumin 3.2 L, Globulin 3.9 H, Albumin/Globulin Ratio 0.8 L 02/07/20 11:30: RBC 2.86 L, Hgb 8.4 L, Hct 27.7 L, MCHC 30.4 L, MPV 6.7 L, Neutrophils % 80.3 H, Band Neuts % (Manual) 14 H, Lymphocytes % 13.7 L, Lymphocytes % (Manual) 11 L, Lymphocytes # 0.9 L 02/07/20 11:30: D-Dimer 2.62 H 02/07/20 11:30: B-Natriuretic Peptide 124.3 H 02/08/20 05:48: Chloride 111 H, Calcium 7.6 L 02/08/20 05:48: WBC 4.0 L, RBC 2.48 L, Hgb 7.9 L, Hct 24.6 L, MCV 99.1 H, MCH 31.8 H, MPV 6.4 L, Lymphocytes # 0.9 L Microbiology - Entire Visit 02/07/20 11:10 Urine Straight Catheter Urine Culture - Final NO GROWTH AT 48 HOURS 02/07/20 11:30 Venous blood - Right Arm Blood Culture - Preliminary Coagulase Neg Staphylococcus 02/07/20 10:52 Venous blood - Left Arm Blood Culture - Preliminary Specimen has been received and culture in progress. No Growth to date. - Physical Exam Vitals: Vital Signs (12 hours) Temp Pulse Resp BP Pulse Ox 02/09/20 07:30 98.4 F 83 20 134/63 97 02/09/20 04:20 98.7 F 90 18 153/58 H 98 Weight Weight 210 lb 4.8 oz Physical Exam: The patient was seen and examined on the day of discharge. General patient is currently alert awake no acute distress Head normocephalic atraumatic Neck supple no JVD no meningeal signs of irritation Lungs clear to auscultation without any rhonchi or rales Cardiac S1-S2 regular, no murmur no gallop no rub Abdomen obesity noted, colostomy in place Extremity no edema Neurologic nonfocal examination Problem - Problem (1) Acute respiratory failure with hypoxia Code(s): J96.01 - ACUTE RESPIRATORY FAILURE WITH HYPOXIA Status: Acute (2) COVID-19 Code(s): U07.1 - COVID-19 Status: Acute (3) COPD (chronic obstructive pulmonary disease) Status: Chronic (4) Chronic renal failure, stage 3 (moderate) Code(s): N18.3 - CHRONIC KIDNEY DISEASE, STAGE 3 (MODERATE) * DO NOT USE * Status: Chronic (5) DM type 2 (diabetes mellitus, type 2) Status: Chronic (6) H/O ileostomy Code(s): Z98.89 - OTHER SPECIFIED POSTPROCEDURAL STATES * DO NOT USE * Status: Chronic (7) HTN (hypertension) Code(s): I10 - ESSENTIAL (PRIMARY) HYPERTENSION Status: Chronic (8) Macrocytic anemia Code(s): D53.9 - NUTRITIONAL ANEMIA, UNSPECIFIED Status: Chronic (9) Obesity (BMI 30-39.9) Code(s): E66.9 - OBESITY, UNSPECIFIED Status: Chronic (10) Parastomal hernia Code(s): K43.5 - PARASTOMAL HERNIA WITHOUT OBSTRUCTION OR GANGRENE Status: Chronic (11) Seizure Code(s): R56.9 - UNSPECIFIED CONVULSIONS Status: Resolved Plan - Discharge Medications Home Medications: Medication Instructions Recorded Confirmed Type Budesonide-Formoterol [Symbicort 1 puff INH BID 05/30/19 02/07/20 History 160-4.5] Acetaminophen [Tylenol] 650 mg PO Q4H PRN 06/09/19 02/07/20 History Atorvastatin Calcium [Lipitor] 20 mg PO HS #60 tab 06/09/19 02/07/20 Rx Carvedilol [Coreg] 3.125 mg PO BID #60 tab 06/09/19 02/07/20 Rx Gabapentin 300 mg PO BID #60 capsule 06/09/19 02/07/20 Rx Allopurinol [Zyloprim] 100 mg PO DAILY #30 tablet 01/30/20 02/07/20 Rx Amlodipine [Norvasc] 5 mg PO DAILY tab 01/30/20 02/07/20 Rx Sodium Bicarbonate [Bicarbonate, 650 mg PO BID #60 tab 01/30/20 02/07/20 Rx Sodium] levETIRAcetam [Keppra] 500 mg PO BID #60 tab 01/30/20 02/07/20 Rx Ascorbic Acid [Vitamin C] 1,000 mg PO DAILY 30 Days #30 tab 02/06/20 02/07/20 Rx Aspirin 325 mg PO DAILY 30 Days #30 tablet 02/06/20 02/07/20 Rx Cholecalciferol (Vitamin D3) 400 units PO DAILY 30 Days #30 tab 02/06/20 02/07/20 Rx [Vitamin D3] Zinc Sulfate 220 mg PO DAILY 30 Days #30 cap 02/06/20 02/07/20 Rx Allergies: No Known Allergies Allergy (Verified 02/07/20 17:55) - Discharge Instructions Activity:: Activity as Tolerated Nourishment:: Diabetic Diet Therapies:: Home Health Equipment/Supplies:: Not Applicable IV Therapy:: Not Applicable - Follow up Plan Referrals: Namita Mo MD [Primary Care Provider] - Disposition: HOME HEALTH Quality - Care Measures CORE MEASURES:: N/A
[2020-02-09 11:27] VITALS: BP 141/73; TEMP 98
--- NOTE | 2020-02-10 15:19 | EKG ---
Test Reason : Blood Pressure : / mmHG Vent. Rate : 122 BPM Atrial Rate : 122 BPM P-R Int : 128 ms QRS Dur : 070 ms QT Int : 296 ms P-R-T Axes : 077 -04 060 degrees QTc Int : 421 ms Sinus tachycardia Otherwise normal ECG Confirmed by WONG ALDANA ([id number]), video tape editor ROSE DAVENPORT ([id number]) on 02/10/2020 3:19:18 PM Referred By: Confirmed By:WONG Weiss
== END 2020-02-09 17:04 | disposition home health service (06) | DRG 177 ==
LOC: ERS 10:50 → 2SW 15:20
PROVIDERS: ADMIT Internal Medicine; ATTEND Internal Medicine
PROC: 8E0ZXY6 Isolation (ICD-10-PCS; principal; 2020-02-07)
DX: U07.1 COVID-19 (principal); J12.89 Other viral pneumonia; J96.01 Acute respiratory failure with hypoxia; I13.0 Hypertensive heart and chronic kidney disease with heart failure and stage 1 through stage 4 chronic kidney disease, or unspecified chronic kidney disease; J44.0 Chronic obstructive pulmonary disease with (acute) lower respiratory infection; I42.9 Cardiomyopathy, unspecified; N18.30 Chronic kidney disease, stage 3 unspecified; E78.5 Hyperlipidemia, unspecified; I50.9 Heart failure, unspecified; E11.22 Type 2 diabetes mellitus with diabetic chronic kidney disease; E66.01 Morbid (severe) obesity due to excess calories; R26.89 Other abnormalities of gait and mobility; D53.9 Nutritional anemia, unspecified; K43.5 Parastomal hernia without obstruction or gangrene; R56.9 Unspecified convulsions; M19.90 Unspecified osteoarthritis, unspecified site; Z93.2 Ileostomy status; Z79.899 Other long term (current) drug therapy; Z79.82 Long term (current) use of aspirin; Z68.36 Body mass index [BMI] 36.0-36.9, adult; Z86.73 Personal history of transient ischemic attack (TIA), and cerebral infarction without residual deficits; R53.81 Other malaise
CPT/HCPCS: 36415; 36416; 51701; 70450; 71045; 71250; 80048; 80053; 81003; 81015; 83605; 83880; 84484; 85025; 85379; 86769; 87040; 87086; 87149; 93005; 96365; 96366; 96368; 96375; J0692; J1100; J1650; J1956; J3370

== ENCOUNTER 2020-08-13 01:29 | Inpatient (IN) | payer MEDICARE, MEDICAID ==
[2020-08-13] MEDS ORDERED: Norepinephrine 8 MG/0.9% NS 250 ML ONE (01:42)
[2020-08-13 03:07] LABS: Bilirubin Negative (Negative); Blood, Urine Negative (Negative); Glucose, Urine (Dipstick) Negative (Negative); Ketone, Urine Negative (Negative); Leukocyte Negative (Negative); Nitrite Negative (Negative); Protein, Urine (Dipstick) Negative (Neg-Trace); Urobilinogen 0.2 mg/dL (Less than 2); pH, Urine 5.5 (5.0-9.0)
[2020-08-13 03:13] LABS: SARS-CoV-2 NAA Rapid Test Not Detected (NotDetected)
[2020-08-13 03:33] LABS: Clarity Clear (Clear)
[2020-08-13] MEDS ORDERED: Ondansetron PF 4 MG/2 ML Vial IVP PRN ×2 (07:51→09:27)
[2020-08-13] MEDS ORDERED: Ondansetron ODT 4 MG TAB PO PRN (07:51)
[2020-08-13] MEDS ORDERED: Acetaminophen 325 MG TAB PO PRN ×2 (07:51→09:31)
[2020-08-13] MEDS ORDERED: Norepinephrine 8 MG/0.9% NS 250 ML IVPB SCH (08:00)
[2020-08-13 08:37] LABS: #Basophils 0.1 thou/uL (0.0-0.2); #Eosinphils 0.4 thou/uL (0.0-0.7); #Lymphocytes 1.9 thou/uL (1.20-3.40); #Monocytes 0.5 thou/uL (0.11-0.59); #Neutrophils 7.8 thou/uL (1.40-6.50); %Basophils 0.6 % (0.0-1.0); %Eosinophils 3.7 % (0.0-10.0); %Lymphocytes 18.2 % (21.0-51.0); %Monocytes 4.4 % (0.0-10.0); %Neutrophils 73.2 % (42.0-75.0); Hemoglobin 7.9 g/dL (12.0-16.0); Mean Corpuscular HGB CONC 31.7 g/dL (32.0-36.0); Mean Corpuscular Hemoglobin 29.2 pg (27.0-31.0); Mean Corpuscular Volume 92.2 fL (78.0-98.0); Mean Platelet Volume 6.9 fL (7.4-10.4); Platelet Count 451 thou/uL (130-400); RBC Distribution Width 15.4 % (11.5-14.5); White Blood Cell (WBC) Count 10.7 thou/uL (4.8-10.8)
[2020-08-13 08:58] LABS: ALT (SGPT) Less than 7 U/L (8-55); AST (SGOT) 7 U/L (5-34); Albumin 3.3 g/dL (3.4-4.8); Alkaline Phosphatase 62 U/L (40-110); Anion Gap 14 mmol/L (10-20); BUN (Urea Nitrogen) 52 mg/dL (9.8-20.1); Bilirubin, Total 0.2 mg/dL (0.2-1.2); Calc. Creatinine Clearance 0 mL/min (70-130); Calcium 8.1 mg/dL (7.8-10.44); Carbon Dioxide 25 mmol/L (23-31); Chloride 108 mmol/L (98-107); Globulin 3.3 g/dL (2.4-3.5); Glucose 151 mg/dL (83-110); Magnesium 1.8 mg/dL (1.6-2.6); Phosphorus 4.5 mg/dL (2.3-4.7); Potassium 3.7 mmol/L (3.5-5.1); Protein, Total 6.6 g/dL (5.8-8.1); Sodium 143 mmol/L (136-145)
[2020-08-13] MEDS ORDERED: Sodium Chloride 0.9% 1,000 ML IV SCH (09:00)
[2020-08-13] MEDS ORDERED: Gabapentin 300 MG CAP PO SCH ×2 (09:00→09:15)
[2020-08-13 09:01] LABS: Troponin I 0.017 ng/mL (< 0.028)
[2020-08-13] MEDS ORDERED: Acetaminophen 325 MG/10.15 ML UDCUP PO PRN (09:27)
[2020-08-13] MEDS ORDERED: Acetaminophen 325 MG Suppository PR PRN (09:27)
[2020-08-13] MEDS ORDERED: Senokot S 8.6-50 MG TAB PO PRN (09:31)
[2020-08-13 09:39] VITALS: BMI 32.9
[2020-08-13] MEDS ORDERED: Sodium Bicarbonate Tab 325 MG TAB PO SCH (09:45)
[2020-08-13] MEDS: Sodium Chloride 0.9% 1,000 ML IV SCH (10:13)
[2020-08-13] MEDS: Gabapentin 300 MG CAP PO SCH ×2 (12:10→20:36)
[2020-08-13] MEDS: Heparin 5,000 UNITS/ML VIAL SC SCH ×2 (15:06→20:37)
[2020-08-13 16:10] LABS: Hemoglobin 7.4 g/dL (12.0-16.0); Platelet Count 418 thou/uL (130-400)
[2020-08-13] MEDS: Famotidine 20 MG TAB PO SCH (20:35)
[2020-08-13] MEDS: Sodium Bicarbonate Tab 325 MG TAB PO SCH (20:35)
[2020-08-13] MEDS: Famotidine/PF 20 mg/2ml Vial SLOW IVP SCH (20:37)
[2020-08-13] MEDS: Folic Acid 1 MG TAB PO SCH (20:37)
[2020-08-14] MEDS ORDERED: VANCOMYCIN 1.75 GM/350 ML BAG 1.75 GM in Premix Bag 1 BAG IVPB SCH (00:30)
[2020-08-14] MEDS: Sodium Chloride 0.9% 1,000 ML IV SCH (03:07)
[2020-08-14 04:13] LABS: #Eosinphils 0.4 thou/uL (0.0-0.7); #Lymphocytes 1.8 thou/uL (1.20-3.40); #Monocytes 0.4 thou/uL (0.11-0.59); #Neutrophils 5.5 thou/uL (1.40-6.50); %Basophils 0.3 % (0.0-1.0); %Eosinophils 4.5 % (0.0-10.0); %Lymphocytes 22.2 % (21.0-51.0); %Monocytes 4.6 % (0.0-10.0); %Neutrophils 68.4 % (42.0-75.0); Hemoglobin 6.9 g/dL (12.0-16.0); Mean Corpuscular HGB CONC 32.2 g/dL (32.0-36.0); Mean Corpuscular Hemoglobin 29.5 pg (27.0-31.0); Mean Corpuscular Volume 91.8 fL (78.0-98.0); Mean Platelet Volume 7.3 fL (7.4-10.4); Platelet Count 375 thou/uL (130-400); RBC Distribution Width 15.2 % (11.5-14.5); Red Blood Cell (RBC) Count 2.35 mill/uL (4.20-5.40)
[2020-08-14 04:53] LABS: ALT (SGPT) Less than 7 U/L (8-55); AST (SGOT) 8 U/L (5-34); Alkaline Phosphatase 62 U/L (40-110); Anion Gap 11 mmol/L (10-20); BUN (Urea Nitrogen) 40 mg/dL (9.8-20.1); Bilirubin, Total 0.2 mg/dL (0.2-1.2); Calc. Creatinine Clearance 40 mL/min (70-130); Calcium 7.9 mg/dL (7.8-10.44); Carbon Dioxide 26 mmol/L (23-31); Chloride 113 mmol/L (98-107); Glucose 85 mg/dL (83-110); Magnesium 1.8 mg/dL (1.6-2.6); Potassium 3.6 mmol/L (3.5-5.1); Sodium 146 mmol/L (136-145)
[2020-08-14] MEDS: Folic Acid 1 MG TAB PO SCH ×2 (08:44→20:58)
[2020-08-14] MEDS: Heparin 5,000 UNITS/ML VIAL SC SCH ×3 (08:44→20:58)
[2020-08-14] MEDS: Sodium Bicarbonate Tab 325 MG TAB PO SCH ×2 (08:44→20:58)
[2020-08-14] MEDS: Gabapentin 300 MG CAP PO SCH ×2 (08:45→20:58)
[2020-08-14] MEDS: Famotidine 20 MG TAB PO SCH (20:58)
[2020-08-14] MEDS: Famotidine/PF 20 mg/2ml Vial SLOW IVP SCH (20:59)
[2020-08-15 00:37] LABS: Vancomycin, Random 13.1 ug/mL (See Comment)
[2020-08-15] MEDS ORDERED: VANCOMYCIN HCL IVPB SCH (01:00)
[2020-08-15] MEDS: Sodium Chloride 0.9% 1,000 ML IV SCH (02:19)
[2020-08-15 04:10] LABS: Reticulocyte Count 1.8 % (0.5-1.5)
[2020-08-15 04:15] LABS: #Basophils 0.1 thou/uL (0.0-0.2); #Eosinphils 0.2 thou/uL (0.0-0.7); #Monocytes 0.4 thou/uL (0.11-0.59); #Neutrophils 4.9 thou/uL (1.40-6.50); %Basophils 0.9 % (0.0-1.0); %Eosinophils 3.1 % (0.0-10.0); %Lymphocytes 26.2 % (21.0-51.0); %Monocytes 4.9 % (0.0-10.0); Hemoglobin 6.2 g/dL (12.0-16.0); Mean Corpuscular HGB CONC 31.7 g/dL (32.0-36.0); Mean Corpuscular Hemoglobin 29.4 pg (27.0-31.0); Mean Corpuscular Volume 92.9 fL (78.0-98.0); Mean Platelet Volume 6.9 fL (7.4-10.4); Platelet Count 330 thou/uL (130-400); RBC Distribution Width 15.6 % (11.5-14.5); White Blood Cell (WBC) Count 7.6 thou/uL (4.8-10.8)
[2020-08-15 04:48] LABS: ALT (SGPT) Less than 7 U/L (8-55); AST (SGOT) 6 U/L (5-34); Albumin 2.8 g/dL (3.4-4.8); Alkaline Phosphatase 56 U/L (40-110); Anion Gap 9 mmol/L (10-20); BUN (Urea Nitrogen) 31 mg/dL (9.8-20.1); Bilirubin, Total Less than 0.2 mg/dL (0.2-1.2); Calc. Creatinine Clearance 39 mL/min (70-130); Calcium 7.8 mg/dL (7.8-10.44); Carbon Dioxide 25 mmol/L (23-31); Chloride 113 mmol/L (98-107); Globulin 2.8 g/dL (2.4-3.5); Glucose 86 mg/dL (83-110); Iron 14 ug/dL (50-170); Iron Binding Capacity, Total 206 mcg/dL (265-497); Potassium 3.3 mmol/L (3.5-5.1); Protein, Total 5.6 g/dL (5.8-8.1); Sodium 144 mmol/L (136-145)
[2020-08-15 05:05] LABS: Ferritin 10.98 ng/mL (10-291)
[2020-08-15] MEDS ORDERED: IRON SUCROSE COMPLEX 100 MG/5 ML SLOW IVP SCH (08:15)
[2020-08-15] MEDS ORDERED: Iron, Sodium Ferric Gluconate 125 MG in Sodium Chloride 0.9% 100 ML IVPB SCH (08:45)
[2020-08-15] MEDS: Sodium Bicarbonate Tab 325 MG TAB PO SCH ×2 (09:50→21:44)
[2020-08-15] MEDS: Gabapentin 300 MG CAP PO SCH ×2 (09:50→21:44)
[2020-08-15] MEDS: Heparin 5,000 UNITS/ML VIAL SC SCH (09:50)
[2020-08-15] MEDS: Folic Acid 1 MG TAB PO SCH ×2 (09:51→21:44)
[2020-08-15] MEDS ORDERED: levETIRAcetam 500 MG TAB PO SCH (10:08)
[2020-08-15] MEDS: levETIRAcetam 500 MG TAB PO SCH (21:44)
[2020-08-15] MEDS: Famotidine 20 MG TAB PO SCH (21:45)
[2020-08-15] MEDS: Carvedilol 3.125 MG TAB PO SCH (21:45)
[2020-08-15] MEDS: Famotidine/PF 20 mg/2ml Vial SLOW IVP SCH (21:46)
[2020-08-16 05:14] LABS: #Eosinphils 0.3 thou/uL (0.0-0.7); #Lymphocytes 1.7 thou/uL (1.20-3.40); #Monocytes 0.4 thou/uL (0.11-0.59); #Neutrophils 4.9 thou/uL (1.40-6.50); %Basophils 0.4 % (0.0-1.0); %Eosinophils 4.4 % (0.0-10.0); %Lymphocytes 22.8 % (21.0-51.0); %Monocytes 5.3 % (0.0-10.0); %Neutrophils 67.2 % (42.0-75.0); Hemoglobin 8.2 g/dL (12.0-16.0); Mean Corpuscular HGB CONC 31.7 g/dL (32.0-36.0); Mean Corpuscular Hemoglobin 28.9 pg (27.0-31.0); Mean Corpuscular Volume 91.3 fL (78.0-98.0); Mean Platelet Volume 7.1 fL (7.4-10.4); Platelet Count 336 thou/uL (130-400); RBC Distribution Width 15.2 % (11.5-14.5); Red Blood Cell (RBC) Count 2.83 mill/uL (4.20-5.40); White Blood Cell (WBC) Count 7.3 thou/uL (4.8-10.8)
[2020-08-16 05:51] LABS: Anion Gap 11 mmol/L (10-20); BUN (Urea Nitrogen) 20 mg/dL (9.8-20.1); Calc. Creatinine Clearance 46 mL/min (70-130); Calcium 8.6 mg/dL (7.8-10.44); Carbon Dioxide 24 mmol/L (23-31); Chloride 113 mmol/L (98-107); Glucose 86 mg/dL (83-110); Potassium 4.2 mmol/L (3.5-5.1); Sodium 144 mmol/L (136-145)
[2020-08-16] MEDS ORDERED: Allopurinol 100 MG TAB PO SCH (09:00)
[2020-08-16] MEDS ORDERED: Amlodipine 5 MG TAB PO SCH (09:00)
[2020-08-16] MEDS: Sodium Bicarbonate Tab 325 MG TAB PO SCH (09:12)
[2020-08-16] MEDS: Gabapentin 300 MG CAP PO SCH (09:12)
[2020-08-16] MEDS: Folic Acid 1 MG TAB PO SCH (09:13)
[2020-08-16] MEDS: levETIRAcetam 500 MG TAB PO SCH (09:13)
[2020-08-16] MEDS: Carvedilol 3.125 MG TAB PO SCH (09:13)
[2020-08-16 15:48] VITALS: TEMP 97.8
[2020-08-16] MEDS ORDERED: levETIRAcetam 500 MG TAB PO SCH (21:00)
[2020-08-16 21:52] VITALS: BP 162/72
== END 2020-08-16 20:16 | disposition home or self-care (01) | DRG 100 ==
LOC: ERS 01:29 → CCU 05:36 → 2NO 08-15 07:22
PROVIDERS: ADMIT Internal Medicine; ATTEND Family Medicine
PROC: 3E043XZ Introduction of Vasopressor into Central Vein, Percutaneous Approach (ICD-10-PCS; principal; 2020-08-13)
PROC: 02HV33Z Insertion of Infusion Device into Superior Vena Cava, Percutaneous Approach (ICD-10-PCS; 2020-08-13)
PROC: 30233N1 Transfusion of Nonautologous Red Blood Cells into Peripheral Vein, Percutaneous Approach (ICD-10-PCS; 2020-08-15)
DX: G40.409 Other generalized epilepsy and epileptic syndromes, not intractable, without status epilepticus (principal); G93.41 Metabolic encephalopathy; Z20.822 Contact with and (suspected) exposure to COVID-19; R57.1 Hypovolemic shock; J96.90 Respiratory failure, unspecified, unspecified whether with hypoxia or hypercapnia; I50.32 Chronic diastolic (congestive) heart failure; I13.0 Hypertensive heart and chronic kidney disease with heart failure and stage 1 through stage 4 chronic kidney disease, or unspecified chronic kidney disease; N17.9 Acute kidney failure, unspecified; N18.4 Chronic kidney disease, stage 4 (severe); J44.9 Chronic obstructive pulmonary disease, unspecified; E11.22 Type 2 diabetes mellitus with diabetic chronic kidney disease; E78.5 Hyperlipidemia, unspecified; M19.90 Unspecified osteoarthritis, unspecified site; E86.0 Dehydration; E66.01 Morbid (severe) obesity due to excess calories; E78.00 Pure hypercholesterolemia, unspecified; Z87.891 Personal history of nicotine dependence; Z79.899 Other long term (current) drug therapy; Z79.51 Long term (current) use of inhaled steroids; Z79.82 Long term (current) use of aspirin; Z90.49 Acquired absence of other specified parts of digestive tract; Z86.16 Personal history of COVID-19; Z87.01 Personal history of pneumonia (recurrent); Z83.3 Family history of diabetes mellitus; Z93.2 Ileostomy status; Z99.81 Dependence on supplemental oxygen; Z95.810 Presence of automatic (implantable) cardiac defibrillator; Z68.33 Body mass index [BMI] 33.0-33.9, adult
CPT/HCPCS: 36415; 36430; 36556; 51701; 71045; 80048; 80053; 80202; 81003; 82533; 82607; 82728; 82746; 83540; 83550; 83605; 83735; 84100; 84484; 85025; 85046; 86140; 86850; 86900; 86901; 87040; 87077; 87086; 87149; 87186; 93005; 93306; 94640; 95712; 95819; 95957; 96365; 96366; J1644; J1953; J2916; J3370; J3490; J7620; P9016; P9045; U0002; U0005

== ENCOUNTER 2022-07-01 12:13 | Outpatient (CLI) | payer MEDICARE, MEDICAID | END 2022-07-01 12:14 | disposition home or self-care (01) | LOC: ULT 12:13 | PROVIDERS: ATTEND Internal Medicine Nephrology | DX: N18.30 Chronic kidney disease, stage 3 unspecified (principal); N28.89 Other specified disorders of kidney and ureter; N28.1 Cyst of kidney, acquired | CPT/HCPCS: 76770 ==